=== PATIENT | female | born 1965 | race Caucasian/White ===

== ENCOUNTER → 2020-08-24 07:26 | Outpatient (CLI) | payer BC, SELFPAY ==
--- NOTE | ~2020-08-24 | MM_ITS ---
EXAMINATION: MM screening yoli BI w gena HISTORY: Screening TECHNIQUE: Craniocaudal and mediolateral oblique 3-D tomosynthesis images were obtained and synthetic 2-D images were generated. CAD analysis was submitted and interpreted. COMPARISON: Comparison to multiple prior studies sequentially, with oldest reviewed study dated 11/2014. BREAST PARENCHYMAL COMPOSITION: There are scattered areas of fibroglandular density. FINDINGS: There is no evidence of suspicious mass, calcification, or architectural distortion to sugg est malignancy in either breast. There has been no suspicious interval change. IMPRESSION: 1. No mammographic evidence of malignancy. 2. Recommend routine screening mammography in one year. BI-RADS Category 1: Negative Reviewed, dictated and finalized at location A.
== END ==
PROVIDERS: Visit Provider Obstetrics & Gynecology
DX: Z12.31 Encounter for screening mammogram for malignant neoplasm of breast (principal)
CPT/HCPCS: 77063; 77067

== ENCOUNTER → 2021-08-26 17:38 | Outpatient (CLI) | payer OTHER, SELFPAY ==
--- NOTE | ~2021-08-26 | DEXA_ITS ---
Bone Density Report Name: Jody Rodriguez Age: 55 Sex: Female Ethnicity: White Date of : 1965 Indication: postmenopausal; screening for osteoporosis; prior fracture; hysterectomy; Referring Provider: HARLEY FELIZ Study: Bone densitometry was performed. Exam Date: August 26, 2021 Accession number: [id number] Bone Density: Region BMD T-score Z-score Classification AP Spine (L1-L4) 1.063 0.1 1.4 Normal Femoral Neck (Left) 0.864 0.1 1.3 Normal Total Hip (Left) 1.129 1.5 2.4 Normal Femoral Neck (Right) 0.819 -0.3 0.9 Normal Total Hip (Right) 1.051 0.9 1.7 Normal Total Hip Mean 1.090 1.2 2.1 Normal World Health Organization criteria for BMD impression classify patients as: Normal (T-score at or above -1.0), Osteopenia (T-score between -1.0 and -2.5), or Osteoporosis (T-score at or below -2.5). 10-year Fracture Risk: FRAX not reported because: All T-scores for Spine Total, Hip Total, Femoral Neck at or above -1.0 Previous Exams: Region Exam Age BMD T-score BMD Change BMD Change Date g/cm2 vs Baseline vs Previous AP Spine(L1-L4) 08/26/2021 55 1.063 0.1 0.122 0.062* 06/03/2016 50 1.000 -0.4 0.060 0.060 05/11/2011 45 0.940 -1.0 Total Hip(Left) 08/26/2021 55 1.129 1.5 0.081 0.029* 06/03/2016 50 1.101 1.3 0.053 0.053 05/11/2011 45 1.048 0.9 Total Hip(Right) 08/26/2021 55 1.051 0.9 0.136 0.059* 06/03/2016 50 0.991 0.4 0.076 0.076 05/11/2011 45 0.915 -0.2 *Denotes significance at 95% confidence level, LSC for AP Spine = 0.022 g/cm2, LSC for Total Hip = 0.027 g/cm2 Clinical Information Provided by Patient: Has had a low trauma fracture Has used the following medications: Vitamin D, MULT VIT Has the following medical conditions: Hysterectomy Patient maximum height was 59 Menopause Age: 35 No regular weight bearing exercise Drinks caffeinated beverages Onset of menses at age 9 Number of children 3 Impression: The patient has normal bone mass. The patient has risk factors, including: previous fracture. No significant bone loss was observed. Discussion: BONE DENSITY IS ABOVE THE MINIMUM DESIRABLE LEVEL AT ALL SKELETAL SITES TESTED. This patient?s bone mineral density is above the minimum desirable level (T-score -1.0 or better) at all sites measured. The patient should follow a healt
--- NOTE | ~2021-08-26 | MM_ITS ---
EXAMINATION: MM screening yoli BI w gena HISTORY: Screening TECHNIQUE: Craniocaudal and mediolateral oblique 3-D tomosynthesis images were obtained and synthetic 2-D images were generated. CAD analysis was submitted and interpreted. COMPARISON: Comparison to multiple prior studies sequentially, with oldest reviewed study dated 06/03. BREAST PARENCHYMAL COMPOSITION: There are scattered areas of fibroglandular density. FINDINGS: There is no evidence of suspicious mass, calcification, or architectural distortion to sugg est malignancy in either breast. There has been no suspicious interval change. IMPRESSION: 1. No mammographic evidence of malignancy. 2. Recommend routine screening mammography in one year. BI-RADS Category 1: Negative Reviewed, dictated and finalized at location A.
== END ==
PROVIDERS: Visit Provider Obstetrics & Gynecology
DX: Z12.31 Encounter for screening mammogram for malignant neoplasm of breast (principal); M85.88 Other specified disorders of bone density and structure, other site
CPT/HCPCS: 77063; 77067; 77080

== ENCOUNTER 2021-11-01 00:28 | Day surgery (SDC) | payer OTHER, SELFPAY ==
[2021-10-22 10:28] VITALS: BMI 54.3
--- NOTE | 2021-10-29 18:50 | WPDANESEPPF ---
Anes - Initial Pre Proc Eval Procedure: Operation Date: 11/01/21 08:00 Proposed Procedures p Screening Colonoscopy - Eliceo Charlton MD Date/Time: 10/29/21 18:50 Surgeon: Eliceo Charlton MD Pre Op Diagnosis: hx of colon polyps Patient Data Age: 56 Gender: F Height: 1.5 m Weight: 122 kg Allergies Allergy/AdvReac Type Severity Reaction Status Date / Time No Known Allergies Allergy Verified 11/01/21 06:42 Home Medications Medication Instructions Recorded Confirmed Type ascorbate calcium (vitamin C) 500 mg PO DAILY 10/22/21 11/01/21 History aspirin [Adult Low Dose Aspirin] 81 mg PO DAILY 10/22/21 11/01/21 History ergocalciferol (vitamin D2) 1,250 mcg PO WEEKLY 10/22/21 11/01/21 History multivit with min-folic acid 1 tablet PO DAILY 10/22/21 11/01/21 History [Adult One Daily Multivitamin] spironolactone 50 mg PO DAILY 10/22/21 11/01/21 History iprbwry-frzr-ueglc-oreg-capryl 1 cap PO DAILY 10/22/21 11/01/21 History Patient hx anesthesia problems: none Family hx anesthesia problems: none Results Review: All pre-operative results and documents have been reviewed as part of the pre-operative evaluation. [facility] Past Medical History Medical History (Updated 10/29/21 @ 18:51 by Jnu Tucker DO) Hypertension Surgical History Surgical History (Updated 10/29/21 @ 18:51 by Jun Tucker DO) History of cholecystectomy History of hysterectomy Social History Social History Smoking status: Never smoker Living arrangements: with family Spiritual care concerns: No Anes - Eval Final PreProcedure Day of Procedure 10/29/21 18:50 Patient weight: super morbidly obese Heart: regular rate and rhythm Lungs: clear to auscultation and normal air movement Airway: Mallampati scale class II Neurological: alert and oriented Last oral intake: >/= 8 hours ASA classification: III Emergent: no Anesthetic plan: proceed Anesthesia type and monitoring: general GIVS and standard monitoring Results Review: All pre-operative results and documents have been reviewed as part of the pre-operative evaluation. Informed Consent: The patient's anesthetic plan and its attendant risks and benefits were discussed with the patient/family/POA. Questions were solicited and answers provided to the satisfaction of the patient/family/POA.
[2021-11-01 06:43] VITALS: BP 131/89; PULSE 91; RESP 18; TEMP 35.9; O2SAT 98; BMI 52.0
[2021-11-01] MEDS: LACTATED RINGERS 1,000 ML 150 ML IV CONT (06:55)
--- NOTE | 2021-11-01 07:27 | WPDGICN ---
Assessment and Plan Assessment and plan (1) History of colon polyps: Code(s): Z86.010 - Personal history of colonic polyps Status: Acute Assessment and Plan: Patient has a history of colon polyps removed in 2016. Plan is for surveillance colonoscopy now and at intervals in the future. GI Consult Note Consult date/time: 11/01/21 07:27 HPI: Jody Rodriguez is a 56 year old female Presents for screening colonoscopy. Patient's current weight appetite bowel movements are normal. She denies abdominal pain. She has had no bleeding. Family history noncontributory. Patient did have a previous colonoscopy 2016 at that time she had a benign adenomatous colon polyp removed from the colon. She reports that her current bowel habits are normal. She denies any bleeding. She does have a history of surgery on her right elbow several years ago. This is healed up well. Review of Systems Review of Systems: All systems reviewed & are unremarkable except as noted in HPI and below PMFSH Past Medical History Medical History (Updated 11/01/21 @ 07:28 by Eliceo Charlton MD) Hypertension Surgical History Surgical History (Updated 10/29/21 @ 18:51 by Jun Tucker DO) History of cholecystectomy History of hysterectomy Social History Social History Smoking status: Never smoker Living arrangements: with family Spiritual care concerns: No Meds Home Medications and Allergies Home Medications Medication Instructions Recorded Confirmed Type ascorbate calcium (vitamin C) 500 mg PO DAILY 10/22/21 11/01/21 History aspirin [Adult Low Dose Aspirin] 81 mg PO DAILY 10/22/21 11/01/21 History ergocalciferol (vitamin D2) 1,250 mcg PO WEEKLY 10/22/21 11/01/21 History multivit with min-folic acid 1 tablet PO DAILY 10/22/21 11/01/21 History [Adult One Daily Multivitamin] spironolactone 50 mg PO DAILY 10/22/21 11/01/21 History ldoafiz-oyqw-guldi-oreg-capryl 1 cap PO DAILY 10/22/21 11/01/21 History Allergies Allergy/AdvReac Type Severity Reaction Status Date / Time No Known Allergies Allergy Verified 11/01/21 06:42 Vital Signs Vital Signs - 24 hr 11/01/21 06:43 Temperature 96.6 F L Pulse Rate 91 Respiratory Rate 18 Blood Pressure 131/89 Pulse Oximetry 98 Exam Narrative: Physical exam reveals patient be alert. Vital signs stable. HEENT exam is unremarkable. Patient is anicteric. Lungs are clear to auscultation and percussion. Heart is without murmur or extra sounds. Abdominal exam bowel sounds are present soft nontender with no hepatosplenomegaly. Digital external rectal exam is normal.
[2021-11-01 08:04] VITALS: BP 110/87; PULSE 82; RESP 17; O2SAT 81
[2021-11-01 08:14] VITALS: BP 102/59; PULSE 89; RESP 18; O2SAT 85
[2021-11-01 08:24] VITALS: BP 119/81; PULSE 91; RESP 18; O2SAT 78
== END 2021-11-01 08:40 | disposition home or self-care (01) ==
PROVIDERS: PCP Nurse Practitioner; Visit Provider Internal Medicine Gastroenterology
PROC: 0DJD8ZZ Inspection of Lower Intestinal Tract, Via Natural or Artificial Opening Endoscopic (ICD-10-PCS; CPT 45378; principal; 2021-11-01 08:00)
DX: Z12.11 Encounter for screening for malignant neoplasm of colon (principal); D12.0 Benign neoplasm of cecum; K64.8 Other hemorrhoids; I10 Essential (primary) hypertension; Z90.49 Acquired absence of other specified parts of digestive tract
CPT/HCPCS: 45385; 88305; J2704; J7120

== ENCOUNTER 2022-04-12 08:04 | Outpatient (CLI) | payer OTHER, SELFPAY ==
--- NOTE | ~2022-04-12 | US_ITS ---
US abdomen complete EXAMINATION: US Abdomen Complete INDICATION: Elevated liver function tests PROCEDURE: Realtime High Resolution abdomen ultrasound. COMPARISON: Ultrasound dated 06/11/2015 FINDINGS: Gallbladder surgically absent. Common bile duct measures 10 mm. Liver echotexture is increased, consistent with fatty infiltration.. Pancreas within normal limits. Pancreatic tail is obscured by bowel gas. Spleen is unremarkeable. Renal echotexture is within norm al limits bilaterally without hydronephrosis, contour deforming mass or renal stone. Right kidney juan sures 10.4 cm. Left kidney measures 11.5 cm. There is a left renal cyst measuring 1.6 cm. Visualized aspects of the aorta and IVC are within normal limits. Portal vein is patent. No sonograph ic Brandon's sign indicated by the technologist. IMPRESSION: 1: Hepatic steatosis. Reviewed, dictated and finalized at location A. IMPRESSION: 1: Hepatic steatosis.
== END 2022-04-12 08:05 | disposition home or self-care (01) ==
LOC: ANHIMG 08:05
PROVIDERS: PCP Nurse Practitioner; Visit Provider Internal Medicine
DX: E83.110 Hereditary hemochromatosis (principal); R79.89 Other specified abnormal findings of blood chemistry; K76.0 Fatty (change of) liver, not elsewhere classified
CPT/HCPCS: 76700

== ENCOUNTER → 2022-09-12 10:09 | Outpatient (CLI) | payer OTHER, SELFPAY ==
--- NOTE | ~2022-09-12 | MM_ITS ---
EXAMINATION: MM screening yoli BI w gena HISTORY: Screening TECHNIQUE: Craniocaudal and mediolateral oblique 3-D tomosynthesis images were obtained and synthetic 2-D images were generated. CAD analysis was submitted and interpreted. COMPARISON: Comparison to multiple prior studies sequentially, with oldest reviewed study dated 06/05. BREAST PARENCHYMAL COMPOSITION: There are scattered areas of fibroglandular density. FINDINGS: There is no evidence of suspicious mass, calcification, or architectural distortion to sugg est malignancy in either breast. There has been no suspicious interval change. IMPRESSION: 1. No mammographic evidence of malignancy. 2. Recommend routine screening mammography in one year. BI-RADS Category 1: Negative Reviewed, dictated and finalized at location A.
== END ==
PROVIDERS: PCP Nurse Practitioner; Visit Provider Advanced Practice Midwife
DX: Z12.31 Encounter for screening mammogram for malignant neoplasm of breast (principal)
CPT/HCPCS: 77063; 77067

== ENCOUNTER → 2023-09-22 14:44 | Outpatient (CLI) | payer OTHER, SELFPAY ==
--- NOTE | ~2023-09-22 | MM_ITS ---
EXAMINATION: MM screening yoli BI w gena HISTORY: Screening TECHNIQUE: Craniocaudal and mediolateral oblique 3-D tomosynthesis images were obtained and synthetic 2-D images were generated. CAD analysis was submitted and interpreted. COMPARISON: Comparison to multiple prior studies sequentially, with oldest reviewed study dated 12/2017. BREAST PARENCHYMAL COMPOSITION: There are scattered areas of fibroglandular density. FINDINGS: There is no evidence of suspicious mass, calcification, or architectural distortion to sugg est malignancy in either breast. There has been no suspicious interval change. IMPRESSION: 1. No mammographic evidence of malignancy. 2. Recommend routine screening mammography in one year. BI-RADS Category 1: Negative Reviewed, dictated and finalized at location A. 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
== END ==
PROVIDERS: PCP Nurse Practitioner; Visit Provider Advanced Practice Midwife
DX: Z12.31 Encounter for screening mammogram for malignant neoplasm of breast (principal)
CPT/HCPCS: 77063; 77067

== ENCOUNTER 2024-04-22 10:46 | Emergency (ER) | payer OTHER, SELFPAY ==
--- NOTE | ~2024-04-22 | CT_ITS ---
EXAMINATION: CT abdomen pelvis w con DATE: 04/22/2024 13:01 INDICATION: Right lower quadrant abdominal pain TECHNIQUE: Computed tomography (CT) of the abdomen and pelvis was performed with 100 mL Omnipaque-350 intravenous contrast. Automated exposure control and iterative reconstruction technique were employe d. The dose-length product was 1371.54 mGy-cm. COMPARISON: 12/02/2014 FINDINGS: Minimal dependent atelectasis in bilateral lower lobes. Calcified right hilar lymph nodes along with a few splenic calcifications consistent with old granulomatous disease. Heart size is normal. No tye cardial or pleural effusion. Diffuse hepatic steatosis. Cholecystectomy clips the gallbladder fossa. Several smaller low-attenuation likely cyst or hemangioma in the posterior spleen. Pancreas and bilat eral adrenal glands are normal. 2 mm stone at a lower pole calyx of the right kidney and at least 5 s tones in the left kidney measuring up to 3 mm in the left kidney. There is a 3-4 mm calcification ozzy ng the midline dependent wall of the bladder which could represent either a stone at the ureterovesic ular junction were potentially recently passed stone. There is mild right hydronephrosis. 1.9 cm low- attenuation exophytic cyst at the lower pole the left kidney with dependent rim calcific a vazquez versu s layering milk of calcium. There is an additional 2.2 cm indeterminate soft tissue density lesion at the lower pole the left kidney which could represent either a complicated proteinaceous/hemorrhagic cyst or solid renal cell carcinoma. Bowels including the appendix are normal. The uterus is not ident ified and has likely been surgically resected. No free intraperitoneal gas or fluid. No pathologicall y enlarged abdominal or pelvic lymphadenopathy. Mild thoracic and lumbar spondylosis. IMPRESSION: 1. Bilateral nephrolithiasis with 3-4 mm stone near the midline of the posterior bladder which could represent either a right ureterovesicular junction stone or recently passed stone with mild right hyd ronephrosis. 2. Indeterminate 2.2 cm soft tissue density lesion at the lower pole the left kidney most likely prot einaceous/hemorrhagic cyst although differential includes solid renal cell carcinoma and would recomm end further evaluation with follow-up pre and postcontrast MRI or CT. Reviewed, dictated and finalized at location A. IMPRESSION: 1. Bilateral nephrolithiasis with 3-4 mm stone near the midline of the posterio r bladder which could represent either a right ureterovesicular junction stone or recently passed stone with mild right hydronephrosis. 2. Indeterminate 2.2 cm soft tissue density lesion at the lower pole the left k idney most likely proteinaceous/hemorrhagic cyst although differential includes solid renal cell carcinoma and would recommend further evaluation with follow- up pre and postcontrast MRI or CT.
[2024-04-22 10:47] VITALS: BP 158/94; PULSE 85; RESP 18; TEMP 36.4; O2SAT 95
--- NOTE | 2024-04-22 11:12 | ED.ABDPAIN ---
HPI - Abdominal Pain General Chief Complaint: Abdominal Pain Stated Complaint: r abd pain Time Seen by Provider: 04/22/24 10:55 Source: patient Mode of arrival: ambulatory Limitations: no limitations History of Present Illness HPI narrative: Jody is a 58-year-old female patient presenting to the emergency room today with complaints of right lower quadrant pain that started approximately 1 hour prior to arrival. She reports that the pain is sharp and constant. States that she feels as though she has to urinate frequently and is having burning at the beginning of the urination stream however the symptoms improved home during urination. Positive for nausea but no vomiting. Denies any diarrhea or blood in her stool. Denies any fever. Last ate. History of kidney stones in the past. Related Data Home Medications Medication Instructions Recorded Confirmed ascorbate calcium (vitamin C) 500 500 mg PO DAILY 10/22/21 11/01/21 mg capsule aspirin 81 mg tablet 81 mg PO DAILY 10/22/21 11/01/21 ergocalciferol (vitamin D2) 1,250 1,250 mcg PO WEEKLY 10/22/21 11/01/21 mcg (50,000 unit) capsule multivitamin with minerals-folic 1 tablet PO DAILY 10/22/21 11/01/21 acid 0.4 mg tablet spironolactone 50 mg tablet 50 mg PO DAILY 10/22/21 11/01/21 turmeric 100 mg-rory 150 1 cap PO DAILY 10/22/21 11/01/21 mg-olive 50 mg-oreg 150 mg-capryl capsule Allergies Allergy/AdvReac Type Severity Reaction Status Date / Time No Known Allergies Allergy Verified 11/01/21 06:42 Review of Systems Review of Systems: Pertinent positives per HPI. Patient denies any fever, chills, rash, headache, visual changes, dizziness, cough, runny nose, sore throat, shortness of breath, chest pain, palpitations, nausea, vomiting, diarrhea, constipation. PMF Past Medical History Medical History Hypertension Surgical History Surgical History History of cholecystectomy History of hysterectomy Social History Social History Smoking status: Never smoker Living arrangements: with family Spiritual care concerns: No Comments At the time of my signature, I reviewed and agree with the nursing past medical, surgical, social, and family history. There is no relevant family history pertinent to the patient complaint. Exam Narrative: General: Well-developed, morbidly obese, in no apparent distress. Head: Normocephalic, atraumatic. Cardio: Regular rate and rhythm, s1 and s2 normal, no murmur appreciated. Resp: Clear to auscultation bilaterally, no rhonchi, rales, wheezing or rubs. Abdomen: Soft, pliable, bowel sounds present in all quadrants, right lower quadrant tender to palpation, no organomegly, no CVAT tenderness. Course Course Emergency Course: Portions of this record may have been created with voice recognition software. Vital Signs Vital signs: Vital Signs Temperature 36.4 C 04/22/24 10:47 Pulse Rate 85 04/22/24 10:47 Respiratory Rate 18 04/22/24 10:47 Blood Pressure 158/94 H 04/22/24 10:47 Pulse Oximetry 95 04/22/24 10:47 Oxygen Delivery Room Air 04/22/24 10:47 Temperature 36.4 C 04/22/24 10:47 Pulse Rate 85 04/22/24 10:47 Respiratory Rate 18 04/22/24 10:47 Blood Pressure 158/94 H 04/22/24 10:47 Pulse Oximetry 95 04/22/24 10:47 Oxygen Delivery Room Air 04/22/24 10:47 Vital signs reviewed MDM - Abdominal Pain MDM Narrative Medical decision making narrative: At the time of visit patient is resting comfortably on the exam table. Patient appears to be nontoxic. Labs: CBC shows white blood cell count 4.9, H&H of 14.4 and 41.1, platelet counts 145, chemistry shows sodium 140, potassium of 3.8, chloride 110, BUN of 23, creatinine 0.9, GFR is greater than 60, glucose is 116, AST 32 ALT is 38, lipas
[2024-04-22 11:31] LABS: Basophils Percent Auto 0.6 % (0.2-1.2); Eosinophils Absolute Auto 0.1 K/mm3 (0-0.3); Eosinophils Percent Auto 2.2 % (0-4.4); Hematocrit 41.1 % (37.0-47.0); Hemoglobin 14.4 g/dL (12.0-15.0); Immature Granulocyte Absolute 0.01 K/mm3 (0.00-0.031); Immature Granulocyte Percent A 0.2 % (0-0.5); Lymphocytes Absolute Auto 1.23 K/mm3 (0.9-3.2); Lymphocytes Percent Auto 24.9 % (18.3-44.2); Mean Corpuscular Hemoglobin 34.5 pg (26-34); Mean Corpuscular Volume 98.6 fl (80-100); Mean Platelet Volume 10.3 fl (7.4-10.4); Monocytes Absolute Auto 0.4 K/mm3 (0.1-0.6); Monocytes Percent Auto 8.1 % (2.6-8.5); Neutrophils Absolute Auto 3.2 K/mm3 (1.3-6.7); Platelet Count Result 145 k/mm3 (150-375); Red Blood Count 4.17 M/mm3 (4.2-5.4); Red Cell Distribution Width 12.9 % (11.5-14.5); White Blood Count 4.9 K/mm3 (4.5-10.0)
[2024-04-22 11:36] LABS: Appearance Urine Cloudy (Clear); Bacteria Urine Rare /hpf; Bilirubin Urine Negative (Negative); Blood Urine 1+ (Negative); Color Urine Yellow (Yellow); Glucose Urine UA Negative (Negative); Ketones Urine Negative (Negative); Leukocyte Esterase Ur 1+ LEU/UL (Negative); Nitrate Urine Negative (Negative); Non Pathogenic Casts 0-2; Protein Urine 1+ mg/dL (Negative); RBC Urine 21-50 /hpf (0-2); Specific Grav Ur 1.024 (1.001-1.035); Squamous Epithelial Cell Urine Occasional /hpf (Few); WBC Urine 51-100 /hpf (0-3); pH Urine 6.5 (5.0-9.0)
[2024-04-22 11:37] LABS: Add Urine Microscopic? YES
[2024-04-22 11:43] LABS: Alanine Aminotransferase 38 U/L (6-35); Albumin Level 4.3 g/dL (3.5-5.1); Alkaline Phosphatase 87 U/L (38-126); Anion Gap 6 mmol/L (4-12); Aspartate Amino Transferase 32 U/L (14-36); Blood Urea Nitrogen 23 mg/dL (7-17); Calcium 9.1 mg/dL (8.4-10.2); Carbon Dioxide 24 mmol/L (22-30); Chloride 110 mmol/L (98-107); Estimated Glomerular Filt Rate > 60; Glucose 116 mg/dL (65-110); Lipase 211 U/L (23-300); Potassium 3.8 mmol/L (3.4-5.0); Sodium 140 mmol/L (137-145)
[2024-04-22 14:13] VITALS: BP 142/90; PULSE 86; RESP 18; O2SAT 96
== END 2024-04-22 14:14 | disposition home or self-care (01) ==
PROVIDERS: Emergency Provider Nurse Practitioner Family; PCP Nurse Practitioner
DX: N13.2 Hydronephrosis with renal and ureteral calculous obstruction (principal); N39.0 Urinary tract infection, site not specified; N28.89 Other specified disorders of kidney and ureter; I10 Essential (primary) hypertension; Z90.49 Acquired absence of other specified parts of digestive tract; Z90.710 Acquired absence of both cervix and uterus; Z79.82 Long term (current) use of aspirin
CPT/HCPCS: 36415; 74177; 80053; 81001; 83690; 85025; 87077; 87086; 87088; 87186; 99284; Q9967

== ENCOUNTER 2024-05-02 13:35 | Outpatient (CLI) | payer OTHER, SELFPAY ==
--- NOTE | ~2024-05-02 | MR_ITS ---
EXAMINATION: MR abdomen wo/w con DATE: 05/02/2024 14:36 INDICATION: Left kidney mass. TECHNIQUE: Magnetic resonance imaging (MRI) of the abdomen was performed without and with 20 mL Multi Cameron intravenous contrast. COMPARISON: CT abdomen and pelvis 04/22/2024 FINDINGS: There is diffuse hepatic steatosis. There is a 5 mm cyst in the liver. There are cysts in the spleen measuring up to 5 mm. There are changes of cholecystectomy. The pancreas and adrenal glands are donovan l. There are hemorrhagic cysts in left kidney measuring up to 19 mm. There are simple cysts in the ki dneys measuring up to 7 mm on the left. There are no dilated loops of bowel. There are no pathologica lly enlarged lymph nodes. There is no free intraperitoneal fluid. IMPRESSION: 1. Benign cysts in the kidneys. Reviewed, dictated and finalized at location A.
== END 2024-05-02 13:36 | disposition home or self-care (01) ==
PROVIDERS: PCP Nurse Practitioner; Visit Provider Nurse Practitioner
DX: N28.1 Cyst of kidney, acquired (principal)
CPT/HCPCS: 74183; A9577

== ENCOUNTER 2024-11-30 10:03 | Outpatient (CLI) | payer OTHER, SELFPAY ==
--- NOTE | ~2024-11-30 | MM_ITS ---
EXAMINATION: MM screening yoli BI w gena HISTORY: Screening TECHNIQUE: Craniocaudal and mediolateral oblique 3-D tomosynthesis images were obtained and synthetic 2-D images were generated. CAD analysis was submitted and interpreted. COMPARISON: Comparison to multiple prior studies sequentially, with oldest reviewed study dated 12/2017. BREAST PARENCHYMAL COMPOSITION: Not dense: There are scattered areas of fibroglandular density. FINDINGS: There is no evidence of suspicious mass, calcification, or architectural distortion to sugg est malignancy in either breast. There has been no suspicious interval change. IMPRESSION: 1. No mammographic evidence of malignancy. 2. Recommend routine screening mammography in one year. BI-RADS Category 1: Negative Reviewed, dictated and finalized at location A. 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
== END 2024-11-30 10:04 | disposition home or self-care (01) ==
PROVIDERS: PCP Nurse Practitioner; Visit Provider Obstetrics & Gynecology Gynecology
DX: Z12.31 Encounter for screening mammogram for malignant neoplasm of breast (principal)
CPT/HCPCS: 77063; 77067

== ENCOUNTER 2025-03-29 14:01 | Emergency (ER) | payer OTHER, SELFPAY ==
--- NOTE | ~2025-03-29 | XR_ITS ---
XR knee LT min 4V Ordering provider: Angeles Rowan NP History: . pain to medial aspect of left knee one week/no known injury . Comparison: None. FINDINGS: BONES: No acute fracture or dislocation. JOINT SPACES: Normal. SOFT TISSUES: Subcutaneous varicosities are seen. IMPRESSION: No acute osseous abnormality left knee. Reviewed, dictated and finalized at location A.
[2025-03-29 14:23] VITALS: BP 139/80; PULSE 71; RESP 20; TEMP 36.2; O2SAT 100
--- NOTE | 2025-03-29 14:41 | ED.EXTPRO ---
HPI - Extremity Problem General Chief complaint: Extremity Problem,Nontraumatic <Angeles Rowan NP - Last Filed: 03/29/25 17:30> Stated complaint: Right Knee Pain <Angeles Rowan NP - Last Filed: 03/29/25 17:30> Time Seen by Provider: 03/29/25 14:41 <Angeles Rowan NP - Last Filed: 03/29/25 17:30> Source: patient, family, RN notes reviewed and old records reviewed <Angeles Rowan NP - Last Filed: 03/29/25 17:30> Mode of arrival: ambulatory <Angeles Rowan NP - Last Filed: 03/29/25 17:30> Limitations: no limitations <Angeles Rowan NP - Last Filed: 03/29/25 17:30> History of Present Illness HPI Narrative: 59 [facility] complaints of pain to the right knee for one week duration with no recent fall or injury. Patient reports that she did fall 2 months ago when she was trying to put on cleats and fell onto concrete but states she mainly hurt her back doesn't think she hurt her knee. then. Patient reports that her knee feels tight and swollen posteriorly, able to bend knee without pain, pain to knee with ambulation. 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 <Angeles Rowan NP - Last Filed: 03/29/25 17:30> MD Complaint: other (right knee pain) <MALIKA Zamora Last Filed: 03/29/25 17:30> Onset (ago): week(s) (1) <Angeles Rowan NP - Last Filed: 03/29/25 17:30> Location: knee <Angeles Rowan NP - Last Filed: 03/29/25 17:30> Severity scale (1-10): 5 <MALIKA Zamora Last Filed: 03/29/25 17:30> Quality: aching and other (tight) <Angeles Rowan NP - Last Filed: 03/29/25 17:30> Exacerbating factors: weight bearing <Angeles Rowan NP - Last Filed: 03/29/25 17:30> Related Data Home medications: Home Medications Medication Instructions Recorded Confirmed Last Taken Type ascorbate calcium (vitamin C) 500 500 mg PO DAILY 10/22/21 11/01/21 10/31/21 History mg capsule aspirin 81 mg tablet 81 mg PO DAILY 10/22/21 11/01/21 10/31/21 History ergocalciferol (vitamin D2) 1,250 1,250 mcg PO WEEKLY 10/22/21 11/01/21 10/31/21 History mcg (50,000 unit) capsule multivitamin with minerals-folic 1 tablet PO DAILY 10/22/21 11/01/21 10/31/21 History acid 0.4 mg tablet spironolactone 50 mg tablet 50 mg PO DAILY 10/22/21 11/01/21 10/31/21 History turmeric 100 mg-rory 150 1 cap PO DAILY 10/22/21 11/01/21 10/31/21 History mg-olive 50 mg-oreg 150 mg-capryl capsule <Angeles Rowan NP - Last Filed: 03/29/25 17:30> Allergies/Adverse reactions: Allergies Allergy/AdvReac Type Severity Reaction Status Date / Time No Known Allergies Allergy Verified 03/29/25 14:21 <Angeles Rowan NP - Last Filed: 03/29/25 17:30> Review of Systems Review of Systems: CONSTITUTIONAL: Denies fever, chills, or sweats. EYES: Denies visual changes, redness, or discharge. ENT: Denies rhinorrhea, congestion, sore throat, or otalgia. CARDIOVASCULAR: Denies chest pain, palpitations, or edema. RESPIRATORY: Denies cough or dyspnea. GASTROINTESTINAL: Denies abdominal pain, nausea, vomiting, or diarrhea. GENITOURINARY: Denies dysuria or hematuria. SKIN: Denies rash or itching. MUSCULOSKELETAL: Denies back pain,positive for right medial knee pain, or myalgia. NEUROLOGIC: Denies headache, numbness, or weakness. PSYCHIATRIC: Denies anxiety or depression. <Angeles Rowan NP - Last Filed: 03/29/25 17:30> All systems reviewed & are unremarkable except as noted in HPI and below <Angeles Rowan NP - Last Filed: 03/29/25 17:30> PMFSH Past Medical History Medical History: Medical History Hypertension <Angeles Rowan NP - Last Filed: 03/29/25 17:30> Surgical History Surgical History: Surgical History History of hysterectomy History of cholecystectomy <Angeles Rowan NP - Last Filed: 03/29/25 17:30> Social History Social History: Social History Smoking status: Never smoker Living arrangements: with family Spiritual care concerns: No <Angeles Rowan NP - Last Filed: 03/29/25 17:30> Comments At time of signature, agree with nursing past medical, surgical, social and family history. There is no relevant family history pertinent to the presenting complaint <Angeles Rowan NP - Last Filed: 03/29/25 17:30> Exam Narrative: GENERAL: Well-appearing, well-nourished,morbidly obese and in no acute distress. HEAD: Normocephalic, atraumatic. EYES: PERRLA and EOMI. ENT: Nares clear, no rhinorrhea or epistaxis. Mucous membranes moist. NECK: Supple. no lymphadenopathy CHEST: Clear to auscultation. No respiratory distress.SAO2 100% on room air HEART: Regular rate and rhythm. No murmur heard. Normal peripheral pulses. ABDOMEN: Soft, nontender, nondistended, normal active bowel sounds. EXTREMITIES: Normal range of motion. edema to posterior right knee with tightness of right knee with some medial knee pain, increases with ambulation, able to bend on own power, pedal pulse palpable, sensation intact. SKIN: Warm, dry, no rash. NEURO: No focal deficits. Alert and oriented x3. <Angeles Rowan NP - Last Filed: 03/29/25 17:30> Course Course Emergency Course: Patient is aware of diagnosis, understands and agrees to treatment plan. Anticipatory guidance given. Patient agrees to follow-up as directed and is aware of reasons to seek care at the emergency department. Portions of this record may have been created with voice recognition software <Angeles Rowan NP - Last Filed: 03/29/25 17:30> Level of Care: Express Care Visit <Angeles Rowan NP - Last Filed: 03/29/25 17:30> Reevaluation(s) Reevaluation #1: Re-evaluated patient prior to discharge. Agree with prior assessment from previous provider. Notified her that her x-ray was negative for any acute fractures however discussed with her the x-rays do not show ligaments or tendons if she continues to have issues with pain she needs follow-up with her primary doctor about possibly referral for physical therapy or an MRI. Recommended that patient consistently take Tylenol ibuprofen for the pain and would recommend icing the area to help with inflammation as well as getting a brace to help support the joint area. Patient verbalized understanding denies any other questions or concerns at this time. <ARASH Martin - Last Filed: 03/29/25 16:26> Date: 03/29/25 <ARASH Martin - Last Filed: 03/29/25 16:26> Time: 16: <ARASH Martin - Last Filed: 03/29/25 16:26> Vital Signs Vital signs: Vital Signs Temperature 36.2 C L 03/29/25 14:23 Pulse Rate 71 03/29/25 14:23 Respiratory Rate 20 03/29/25 14:23 Blood Pressure 139/80 03/29/25 14:23 Pulse Oximetry 100 03/29/25 14:23 Oxygen Delivery Room Air 03/29/25 14:23 Temperature 36.2 C L 03/29/25 14:23 Pulse Rate 71 03/29/25 14:23 Respiratory Rate 20 03/29/25 14:23 Blood Pressure 139/80 03/29/25 14:23 Pulse Oximetry 100 03/29/25 14:23 Oxygen Delivery Room Air 03/29/25 14:23 Reviewed <Angeles Rowan NP - Last Filed: 03/29/25 17:30> Vital Signs Temperature 36.2 C L 03/29/25 14:23 Pulse Rate 71 03/29/25 14:23 Respiratory Rate 20 03/29/25 14:23 Blood Pressure 139/80 03/29/25 14:23 Pulse Oximetry 100 03/29/25 14:23 Oxygen Delivery Room Air 03/29/25 14:23 Temperature 36.2 C L 03/29/25 14:23 Pulse Rate 71 03/29/25 14:23 Respiratory Rate 20 03/29/25 14:23 Blood Pressure 139/80 03/29/25 14:23 Pulse Oximetry 100 03/29/25 14:23 Oxygen Delivery Room Air 03/29/25 14:23 <ARASH Martin - Last Filed: 03/29/25 16:26> MDM - Extremity (Nontraumatic) MDM Narrative Medical decision making narrative: no x-ray available in [place] today. Patient went to [facility] for x-ray accompanied by spouse. Patient discharged home from [facility] with instructions.. <Angeles Rowan NP - Last Filed: 03/29/25 17:30> Differential Diagnosis Differential diagnosis: Likely lower extremity edema and other (right knee pain and swelling. right medial knee pain) <Angeles Rowan NP - Last Filed: 03/29/25 17:30> Medical Records Attestation: I reviewed the patient's medical records. 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 pain to medial aspect of left knee one week/no known injury . Comparison: None. FINDINGS: BONES: No acute fracture or dislocation. JOINT SPACES: Normal. SOFT TISSUES: Subcutaneous varicosities are seen. IMPRESSION: No acute osseous abnormality left knee. Reviewed, dictated and finalized at location A. Please be advised this is a medical document. It is intended for [id number] communication. It is written in medical language and may contain unfamiliar abbreviations or verbiage. Medical documents are intended to carry relevant information, facts as evident, and the clinical opinion of the practitioner at the time of the encounter. This report may have been done utilizing a voice recognition system. Attempts have been made to correct errors. However, there may be uncorrected grammatical, spelling, and recognition errors present. The file time of this note does not necessarily represent the time of service. Dictated By: Ranulfo Huntley MD 03/29/25 1537 Signed By: <Electronically signed by Ranulfo Huntley MD in OV> <Angeles Rowan NP - Last Filed: 03/29/25 17:30> Critical Care Time Critical Care Time Critical Care Time: No <Angeles Rowan NP - Last Filed: 03/29/25 17:30> Discharge Plan Discharge Clinical Impression: Right knee pain Qualifiers: Chronicity: acute Qualified Code(s): M25.561 - Pain in right knee <Angeles Rowan NP - Last Filed: 03/29/25 17:30> Patient Disposition: Home <Angeles Rowan NP - Last Filed: 03/29/25 17:30> Condition: Stable <Angeles Rowan NP - Last Filed: 03/29/25 17:30> Instructions: Knee Pain (ED) <Angeles Rowan NP - Last Filed: 03/29/25 17:30> Additional Instructions: Recommend neoprene sleeve for right knee for support can obtain at [email or web address] or [employer] Tylenol for lesser pain Ibuprofen regularly for the next 2-3 days for the inflammation recommend 600 mg 3 times daily with food for the next 2-3 days Follow-up with orthopedic surgeon if no improvement noted Follow-up with PCP if further problems or concerns Ice to the area 20-30 minutes 4-6 times a day Elevate above heart If your symptoms persist, change or worsen significantly before you can contact your personal physician then please, without delay, go to the emergency department for further evaluation. Follow-up with PCP in 7-10 days or sooner if needed Follow up with PCP soon in regards to your blood pressure which is elevated above threshold for referral. Blood pressure above 120/80 may indicate pre-hypertension. 139/80 <MALIKA Zamora Last Filed: 03/29/25 17:30> Patient Language: Greek <Angeles Rowan NP - Last Filed: 03/29/25 17:30> Prescriptions: No Action ergocalciferol (vitamin D2) 1,250 mcg (50,000 unit) capsule 1,250 mcg PO WEEKLY spironolactone 50 mg tablet 50 mg PO DAILY multivit with min-folic acid [Adult One Daily Multivitamin] 0.4 mg Tablet 1 tablet PO DAILY Adult Low Dose Aspirin 81 mg Tablet 81 mg PO DAILY ascorbate calcium (vitamin C) 500 mg Capsule 500 mg PO DAILY zgebervu-czrj-gkrjf-oreg-capry 100 mg-150 mg- 50 mg-150 mg Capsule 1 cap PO DAILY amoxicillin-pot clavulanate 875-125 mg tablet 1 tablet PO Q12H 7 Days Qty: 14 0RF <Angeles Rowan NP - Last Filed: 03/29/25 17:30> Follow-up/Referrals: [place],NAUN Mayer [Primary Care Provider] - <Angeles Rowan NP - Last Filed: 03/29/25 17:30> Time of Disposition: 16:20 <Angeles Rowan NP - Last Filed: 03/29/25 17:30> 16:20 <ARASH Martin - Last Filed: 03/29/25 16:26> Quality Jim Coma Scale Eyes: Open <Angeles Rowan NP - Last Filed: 03/29/25 17:30> Verbal: Oriented and Alert <Angeles Rowan NP - Last Filed: 03/29/25 17:30> Motor: Follows Commands <Angeles Rowan NP - Last Filed: 03/29/25 17:30> Jim Coma Total Score: 15 <Angeles Rowan NP - Last Filed: 03/29/25 17:30> 15 <ARASH Martin - Last Filed: 03/29/25 16:26>
--- NOTE | 2025-03-29 14:58 | PC.NURSE ---
Pt will transfer to [facility] for x-ray via [facility].
--- NOTE | 2025-03-29 15:13 | PC.NURSE ---
Report given to MARÍA Watson at [facility]
== END 2025-03-29 16:21 | disposition home or self-care (01) ==
PROVIDERS: Emergency Provider Registered Nurse; PCP Nurse Practitioner
DX: M25.561 Pain in right knee (principal); I10 Essential (primary) hypertension; Z79.82 Long term (current) use of aspirin
CPT/HCPCS: 73564; 99213; G0463

== ENCOUNTER 2025-04-10 14:26 | Outpatient (CLI) | payer OTHER, SELFPAY ==
--- NOTE | ~2025-04-10 | DEXA_ITS ---
Bone Density Report Name: JANNETTE MAYO Age: 59 Sex: Female Ethnicity: White Date of : 1965 Indication: postmenopausal; screening for osteoporosis; height loss; hysterectomy; Referring Provider: AKSHAT TOLBERT Study: Bone densitometry was performed. Exam Date: April 10, 2025 Accession number: [id number] Bone Density: Region BMD T-score Z-score Classification AP Spine(L1-L4) 0.957 -0.8 0.7 Normal Femoral Neck (Left) 0.763 -0.8 0.6 Normal Total Hip (Left) 1.079 1.1 2.1 Normal Femoral Neck (Right) 0.685 -1.5 -0.1 Osteopenia Total Hip (Right) 1.035 0.8 1.8 Normal Total Hip Mean 1.057 1.0 2.0 Normal World Health Organization criteria for BMD impression classify patients as: Normal (T-score at or above -1.0), Osteopenia (T-score between -1.0 and -2.5), or Osteoporosis (T-score at or below -2.5). 10-year Fracture Risk(1): Major Osteoporotic Fracture 6.3% Hip Fracture 0.4% Reported Risk Factors: [place] (), Neck BMD=0.685, BMI=55.6 (1) FRAX(R) Version 3.08. Fracture probability calculated for an untreated patient. Fracture probability may be lower if the patient has received treatment. Previous Exams: -- Region Exam Age BMD T-score BMD Change BMD Change Date g/cm2 vs Baseline vs Previous -- AP Spine (L1-L4) 04/10/2025 59 0.957 -0.8 1.8% -9.9%# 08/26/2021 55 1.063 0.1 13.0%# 6.2%* 06/03/2016 50 1.000 -0.4 6.4%# 6.4%# 05/11/2011 45 0.940 -1.0 Total Hip(Left) 04/10/2025 59 1.079 1.1 3.0%* -4.5%# 08/26/2021 55 1.129 1.5 7.8%# 2.6%* 06/03/2016 50 1.101 1.3 5.1%# 5.1%# 05/11/2011 45 1.048 0.9 Total Hip(Right) 04/10/2025 59 1.035 0.8 13.1%* -1.5%# 08/26/2021 55 1.051 0.9 14.8%# 6.0%* 06/03/2016 50 0.991 0.4 8.4%# 8.4%# 05/11/2011 45 0.915 -0.2 -- *Denotes significance at 95% confidence level, LSC for AP Spine = 0.022 g/cm2, LSC for Total Hip = 0.027 g/cm2 # Denotes dissimilar scan types or analysis methods Clinical Information Provided by Patient: Has used the following medications: Vitamin D, Calcium Has the following medical conditions: Hysterectomy Patient maximum height was 59 Menopause Age: 35 No regular weight bearing exercise Drinks caffeinated beverages Onset of menses at age 9 Number of children 3 Impression: The patient has low bone mass, based on the Right Femoral Neck T-score. The patient has an estimated ten-year risk of hip fracture of 0.4% and an estimated ten-year risk of major fracture of 6.3%, based on the WHO FRAX algorithm. Unable to evaluate interval change due to the use of different scan modes. Discussion: BONE DENSITY IS LOW AT ONE OR MORE SKELETAL SITES. This patient's lowest T-score is low at one or more skeletal sites. It meets the World Health Organization's (WHO) criteria for ?low bone mass? (T-score between -1.0 and -2.5). The patient's 10-year risk of fracture as calculated by FRAX is less than the threshold where pharmacological therapy is recommended by the National Osteoporosis Foundation (NOF). However, all treatment decisions require clinical judgment and consideration of individual patient factors, including patient preferences, comorbidities, previous drug use, risk factors not captured in the FRAX model (e.g., frailty, falls, vitamin D deficiency, increased bone turnover, interval significant decline in bone density) and possible under or overestimation of fracture risk by FRAX. The patient should follow a healthful lifestyle (good nutrition with adequate calcium and vitamin D, and appropriate weight-bearing exercise). Follow-Up: Consider repeating this study in 2 to 3 years to reassess this patient's status, or sooner if there is some new clinical indication. Reported by: JEFERSON on 04/10/2025 2:45:00 PM. Reviewed, dictated and finalized at location A.
== END 2025-04-10 14:27 | disposition home or self-care (01) ==
LOC: MICIMG 14:27
PROVIDERS: PCP Nurse Practitioner; Visit Provider Obstetrics & Gynecology Gynecology
DX: Z78.0 Asymptomatic menopausal state (principal); M85.851 Other specified disorders of bone density and structure, right thigh
CPT/HCPCS: 77080

== ENCOUNTER 2025-09-17 17:34 | Emergency (ER) | payer OTHER, SELFPAY ==
--- NOTE | ~2025-09-17 | XR_ITS ---
EXAM/PROCEDURE: XR chest 2V HISTORY: Cough x 2 weeks. Chills/sweats COMPARISON: 2010 TECHNIQUE: Two view(s) of the chest. FINDINGS: LUNGS: Clear of acute processes. PLEURAL SPACES: Clear. No evidence of fluid or pneumothorax. HEART/ MEDIASTINUM: Normal in appearance. SOFT TISSUES: No significant findings. BONES: No acute osseous abnormality. IMPRESSION: No acute findings. Reviewed, dictated and finalized at location A. RVISORY HISTORIAN IMPRESSION: No acute findings.
[2025-09-17 17:47] VITALS: BP 120/63; PULSE 102; RESP 20; TEMP 37.7; O2SAT 98
--- NOTE | 2025-09-17 18:08 | ED.URI ---
HPI - URI/Sore Throat General Chief Complaint: Upper Respiratory Infection Stated Complaint: URI Time Seen by Provider: 09/17/25 17:57 Source: patient and RN notes reviewed Mode of arrival: ambulatory Limitations: no limitations History of Present Illness HPI Narrative: 59-year-old female with history of hemochromatosis and hypertension presents today with a 2 week history of cough, fatigue, postnasal drip, sweats and chills. She recently developed some diarrhea as well. Denies shortness of breath, chest pain, fever. She has tried ibuprofen and Pepto-Bismol with some mild improvement. States daughter and grand children that live in her home have been sick with similar symptoms. Related Data Home Medications ?Medication ?Instructions ?Recorded ?Confirmed ?Last Taken ?Type ascorbate calcium (vitamin C) 500 500 mg PO DAILY 10/22/21 11/01/21 10/31/21 History mg capsule aspirin 81 mg tablet 81 mg PO DAILY 10/22/21 11/01/21 10/31/21 History ergocalciferol (vitamin D2) 1,250 1,250 mcg PO WEEKLY 10/22/21 11/01/21 10/31/21 History mcg (50,000 unit) capsule multivitamin with minerals-folic 1 tablet PO DAILY 10/22/21 11/01/21 10/31/21 History acid 0.4 mg tablet spironolactone 50 mg tablet 50 mg PO DAILY 10/22/21 11/01/21 10/31/21 History turmeric 100 mg-rory 150 1 cap PO DAILY 10/22/21 11/01/21 10/31/21 History mg-olive 50 mg-oreg 150 mg-capryl capsule oxybutynin chloride 5 mg mg PO 09/17/25 Unknown History tablet,extended release 24 hr Allergies Allergy/AdvReac Type Severity Reaction Status Date / Time No Known Allergies Allergy Verified 09/17/25 17:39 [facility] Past Medical History Medical History (Updated 09/17/25 @ 18:43 by Zoraida Rosas APRN, [employer] OPERATOR) Hemochromatosis Hypertension Surgical History Surgical History History of hysterectomy History of cholecystectomy Social History Social History Living arrangements: with family Spiritual care concerns: No Comments At time of signature, I have reviewed and agree with nursing past medical, surgical, social and family history unless otherwise noted. Please see nursing chart for further information. There is no relevant family history pertinent to the presenting complaint Exam Narrative: GENERAL: Mildly ill-appearing, well-nourished, and in no acute distress. HEAD: Normocephalic, atraumatic. EYES: EOMI. No redness or drainage. Conjunctivae normal. ENT: Mucous membranes pink and moist. Nares congested. No rhinorrhea. TMs normal bilaterally. Throat normal. Uvula midline. NECK: Normal AROM. Supple. No lymphadenopathy. CHEST: No respiratory distress. Clear to auscultation. HEART: Regular rate and rhythm. No murmur appreciated. ABDOMEN: Soft, nontender, nondistended, normal active bowel sounds. EXTREMITIES: Normal range of motion. No edema. SKIN: Warm, dry, no rash. Capillary refill normal. Normal skin turgor. NEURO: No focal deficits. Alert and oriented x3. Gait steady. PSYCH: Normal affect. No signs of depression or anxiety. Course Course Level of Care: Express Care Visit Vital Signs Vital signs: Vital Signs Temperature 99.9 F H 09/17/25 17:47 Pulse Rate 102 H 09/17/25 17:47 Respiratory Rate 20 09/17/25 17:47 Blood Pressure 120/63 09/17/25 17:47 Pulse Oximetry 98 09/17/25 17:47 Oxygen Delivery Room Air 09/17/25 17:47 Temperature 99.9 F H 09/17/25 17:47 Pulse Rate 102 H 09/17/25 17:47 Respiratory Rate 20 09/17/25 17:47 Blood Pressure 120/63 09/17/25 17:47 Pulse Oximetry 98 09/17/25 17:47 Oxygen Delivery Room Air 09/17/25 17:47 Reviewed MDM - URI/Sore Throat MDM Narrative Medical decision making narrative: 59-year-old female with history of hemochromatosis and hypertension presents today with a 2 week history of cough, fatigue, postnasal drip, sweats and chills. She recently developed some diarrhea as well. Denies shortness of breath, chest pain, fever. She has tried ibuprofen and Pepto-Bismol with some mild improvement. States daughter and grand children that live in her home have been sick with similar symptoms. Upon exam, patient is mildly ill appearing with some nasal congestion. Chest x-rays negative. Symptoms likely viral in etiology. Discussed OTC medication use and duration of illness. Patient will be treated with a short course of prednisone and some Tessalon Perles. Recommend PCP follow-up within 1 week if symptoms are not improving. Vital signs stable. Anticipatory guidance given. Differential Diagnosis Differential diagnosis: Likely upper respiratory infection, bronchitis and other (Pneumonia) Imaging Data Radiologist's impression: ITS Impressions Chest X-Ray 09/17/25 18:23 IMPRESSION: No acute findings. Critical Care Time Critical Care Time Critical Care Time: No Discharge Plan Discharge Clinical Impression: Bronchitis Patient Disposition: Home Condition: Stable Instructions: Acute Bronchitis (ED) Additional Instructions: Please take the prednisone and Tessalon Perles as directed. You may continue the ibuprofen as needed. Follow-up with your PCP if symptoms are not improving. Patient Language: Polish Prescriptions: New benzonatate 200 mg capsule 200 mg PO TID PRN (Reason: cough) Qty: 20 0RF prednisone 20 mg tablet 40 mg PO DAILY 5 Days Qty: 10 0RF No Action oxybutynin chloride 5 mg tablet extended release 24hr PO ergocalciferol (vitamin D2) 1,250 mcg (50,000 unit) capsule 1,250 mcg PO WEEKLY spironolactone 50 mg tablet 50 mg PO DAILY multivit with min-folic acid [Adult One Daily Multivitamin] 0.4 mg Tablet 1 tablet PO DAILY Adult Low Dose Aspirin 81 mg Tablet 81 mg PO DAILY ascorbate calcium (vitamin C) 500 mg Capsule 500 mg PO DAILY putbcicd-qwkz-ghsxy-oreg-capry 100 mg-150 mg- 50 mg-150 mg Capsule 1 cap PO DAILY Follow-up/Referrals: [place],NAUN Mayer [Primary Care Provider, Unknown] Stand Alone Forms: Work/School Release IP Time of Disposition: 18:44
--- OUTSIDE RECORDS SUMMARY | 2025-09-18 15:26 | XMS_ITS | Encounter Summary ---
Author Organization [facility] Address [address] [place] [phone] Phone Care Team Providers Care Ecommerce Marketing Manager Name Role Phone Jes Rhoades APRN, CNP Primary Care Provid er Encounter Details Date Type Department Care Team (Late st Contact Info) Description 06/14/2022 Telephone [facility] Oncology Services [address] [place] [phone] New Bell MD [address] [place], [place] [phone] Social History Tobacco Use Types Packs/Day Years Used Date Smoking Tobacco: Never Smokeless Tobacco: Never Alcohol Use Standard Drinks/Week Comments Never 0 (1 standard drink = 0.6 oz pur e alcohol) Comments No Sex and Gender Information Value Date Recorded Sex Assigned at Not on file Legal Sex Female 10:49 AM CDT Gender Identity Not on file Sexual Orientation Not on file COVID-19 Exposure Response Date Recorded In the last 10 days, have yo u been in contact with someone who was confirmed or suspected to have Coronavirus/COVID-19? No / Unsure 06/15/2022 2:26 PM CDT documented as of this encounter Miscellaneous Notes * Telephone Encounter - Rinaldi Mary Kate S - 06/14/2022 9:46 AM CDT Left a voicemail inquiring about the patient's lab work that was to be completed at [facility]. The patient will receive a phlebotomy tomorrow if indicated by lab work. However, Dr. Bell would like to see the patient every 4 months for a follow up and possible phlebotomy. Waiting to here from patient regarding labs and rescheduling 06/15/22 follow up. documented in this encounter Plan of Treatment Upcoming Encounters Date Type Department Care Team (Late st Contact Info) Description 11/12/2025 11:00 AM BANKING SUPERVISOR Clinical Support [facility] Oncology Services [address] [place] [phone] 12/29/2025 11:00 AM BANKING SUPERVISOR Clinical Support [facility] Oncology Services [address] [place] [phone] 02/17/2026 11:00 AM CDT Clinical Support [facility] Oncology Services [address] [place] [phone] 04/28/2026 11:00 AM CDT Clinical Support [facility] Oncology Services [address] [place] [phone] 09/11/2026 1:20 PM CDT Office Visit [facility] Oncology Services [address] [place] [address] Ann Hernandez, [facility] [address] [place] [address] 09/11/2026 2:00 PM CDT Clinical Support [facility] Oncology Services [address] [place] [phone] documented as of this encounter Visit Diagnoses Not on filedocumented in this encounter Care Teams Ecommerce Marketing Manager Relationship Specialty Start Date End Date Jes Rhoades, STEEL HEATER, MEMORY CARE PROGRAM RESIDENT [address] [place] [address] PCP - General Advanced Practice Nurse 04/07/21 documented as of this encounter
--- OUTSIDE RECORDS SUMMARY | 2025-09-18 15:26 | XMS_ITS | Encounter Summary ---
Author Organization [facility] Address [address] [place] [address] Phone Care Team Providers Care Medicine Aide Name Role Phone Jes Rhoades APRN, BEKAH Primary Care Provid er Encounter Details Date Type Department Care Team (Late Contact Info) Description 09/11/2025 Results Follow-Up [facility] Oncology Services [address] [place] [phone] Ann Hernandez Sol, PAC [address] [place] [address] COMPLETE BLOOD COUNT (CBC) WITH DIFF, CMP (COMPREHENSIVE METABOLIC PANEL), IRON,TRANSFERN,CALC. TIBC,%SAT, FERRITIN Social History Tobacco Use Types Packs/Day Years Used Date Smoking Tobacco: Never Smokeless Tobacco: Never Alcohol Use Standard Drinks/Week Comments Never 0 (1 standard drink = 0.6 oz pur e alcohol) Comments No Sex and Gender Information Value Date Recorded Sex Assigned at Not on file Legal Sex Female 10:49 AM CDT Gender Identity Not on file Sexual Orientation Not on file documented as of this encounter Plan of Treatment Upcoming Encounters Date Type Department Care Team (Late st Contact Info) Description 11/12/2025 11:00 AM ENROLLMENT MANAGER Clinical Support [facility] Oncology Services [address] [place] [phone] 12/29/2025 11:00 AM ENROLLMENT MANAGER Clinical Support [facility] Oncology Services [address] [place] [address] 02/17/2026 11:00 AM CDT Clinical Support [facility] Oncology Services [address] [place] [address] 04/28/2026 11:00 AM CDT Clinical Support [facility] Oncology Services [address] [place] [address] 09/11/2026 1:20 PM CDT Office Visit [facility] Oncology Services [address] [place] [address] Ann Hernandez, [facility] [address] [place] [address] 09/11/2026 2:00 PM CDT Clinical Support [facility] Oncology Services [address] [place] [address] documented as of this encounter Visit Diagnoses Not on filedocumented in this encounter Care Teams Medicine Aide Relationship Specialty Start Date End Date Jes Rhoades, SAFE TECHNICIAN, ELECTRIC CUTTER OPERATOR [address] [place] [address] PCP - General Advanced Practice Nurse 04/07/21 documented as of this encounter
--- OUTSIDE RECORDS SUMMARY | 2025-09-18 15:26 | XMS_ITS | Clinical Summary ---
Author Organization [facility] Address [address] [place] [address] Phone Care Team Providers Care Supervisor Cd Area Name Role Phone Jes Rhoades APRN, CNP Primary Care Provid er Allergies No known active allergies Medications spironolactone (ALDACTONE) 50 MG Tablet Take 50 mg by mouth. 04/01/2021 Active aspirin 81 MG Chewable Tablet Take 1 Tablet by mouth. Active Multiple Vitamins-Minera ls (KP Vision Formula) Tablet daily. Acti ve ergocalciferol (VITAMIN D) 32468 UNIT Capsule TAKE 1 CAPSULE BY MOUTH 1 TIME A WEEK 05/11/2021 Active Turmeric (QC TUMERIC COMPLEX PO) Take by mouth. Active oxybutynin (DITROPAN) 5 MG Tablet Take 5 mg by mouth daily. 09/04/2023 Active Active Problems Problem Noted Date Diagnosed Date Elevated LFTs 02/21/2022 Hereditary hemochromatosis 05/06/2021 Hypertension 05/06/2021 Encounters Date Type Department Care Team Description 09/12/2025 2:00 PM CDT [facility] [address] [place] [phone] Ann Hernandez Sol, PAC Hereditary hemochromatosis (Primary Dx) Discharge Disposition: Discharged to home or Selfcare 09/12/2025 1:20 PM CDT [facility] [address] [place] [phone] Ann Hernandez Sol, PAC Hereditary hemochromatosis (Primary Dx) Discharge Disposition: Discharged to home or Selfcare 09/12/2025 Travel 09/11/2025 Results Follow-Up [facility] Oncology Services [address] [place] [address] Ann Hernandez April, PAC COMPLETE BLOOD COUNT (CBC) WITH DIFF, CMP (COMPREHENSIVE METABOLIC PANEL), IRON,TRANSFERN,CALC.TIB C,%SAT, FERRITIN 09/10/2025 Travel from Last 3 Months Family History Medical History Relation Name Comments Cancer Father Heart Disease Father Hypertension Father Stroke Father Cancer Maternal Aunt Cancer Maternal Grandmother Hypertension Mother Relation Name Status Comments Father Maternal Aunt Maternal Grandmother Mother Alive Social History Tobacco Use Types Packs/Day Years Used Date Smoking Tobacco: Never Smokeless Tobacco: Never Tobacco Cessation:Counseling Given: Not Answered Alcohol Use Standard Drinks/Week Comments Never 0 (1 standard drink = 0.6 oz pur e alcohol) Comments No Sex and Gender Information Value Date Recorded Sex Assigned at Not on file Legal Sex Female 10:49 AM CDT Gender Identity Not on file Sexual Orientation Not on file Last Filed Vital Signs Vital Sign Reading Time Taken Comments Blood Pressure 126/83 09/12/2025 2:15 PM CDT Pulse 90 09/12/2025 2:15 PM CDT Temperature 36.4 C (97.5 F) 09/12/2025 1:45 PM CDT Respiratory Rate 16 09/12/2025 1:45 PM CDT Oxygen Saturation 99% 09/12/2025 1:45 PM CDT Inhaled Oxygen Concentration - - Weight 107.2 kg (236 lb 4.8 oz) 09/12/2025 1:45 PM CDT Height 149.9 cm (4' 11) 09/12/2025 1:45 PM CDT Body Mass Index 47.73 09/12/2025 1:45 PM CDT Plan of Treatment Upcoming Encounters Date Type Department Care Team (Late st Contact Info) Description 11/12/2025 11:00 AM MOTORCOACH OPERATOR Clinical Support [facility] Oncology Services [address] [place] [address] 12/29/2025 11:00 AM MOTORCOACH OPERATOR Clinical Support [facility] Oncology Services [address] [place] [address] 02/17/2026 11:00 AM CDT Clinical Support [facility] Oncology Services [address] [place] [address] 04/28/2026 11:00 AM CDT Clinical Support [facility] Oncology Services [address] [place] [address] 09/11/2026 1:20 PM CDT Office Visit [facility] Oncology Services [address] [place] [address] Ann Hernandez, PAC [address] [place] [address] 09/11/2026 2:00 PM CDT Clinical Support [facility] Oncology Services [address] [place] [address] Health Maintenance Due Date Last Done Comments Mammogram 1963 Pap Smear 1984 Cervical Cancer Screening (CCS) 1993 HPV/Cotest 1993 Cologuard 2008 Colonoscopy 2008 Colorectal Cancer Screening 2008 Immunochemical Fecal Occult Blood 2008 Pneumococcal Immunization (50+ years) (1 of 1 - PCV) 2013 Respiratory Syncytial Virus (RSV) Immunization (Adult) (1 - Risk 50-74 years 1-dose series) 2013 Zoster Immunization (1 of 2) 2013 Influenza Immunization (#1) 07/14/202510/14, 11/04/2022, 11/02/2021, Additional history exists SARS-COV-2 Immunization ( season) 2025 03/10/2022, 04/26/2021 DTaP/Tdap/Td Immunization Discontinued 05/03/2021 TdaP Immunization Completed 05/03/2021 Hepatitis C Virus (HCV) Screening Completed 11/03/2021 Hepatitis B Immunization Aged Out No longer eligible based on patient's age to complete this topic Human Papillomavirus (HPV) Immunization Aged Out No longer eligible based on patient's age to complete this topic Meningococcal Immunization (ACWY) Aged Out No longer eligible based on patient's age to complete this topic Rotavirus Immunization Aged Out No lo nger eligible based on patient's age to complete this topic Procedures Procedure Name Priority Date/Time Associated Diagnosis Comments FERRITIN Routine 09/10/2025 12:00 AM CDT IRON,TRANSFERN,CALC .TIBC,%SAT Routine 09/10/2025 12:00 AM CDT CMP (COMPREHENSIVE METABOLIC PANEL) Routine 09/10/2025 12:00 AM CDT COMPLETE BLOOD COUNT (CBC) WITH DIFF Routine 09/10/2025 12:00 AM CDT from Last 3 Months Results * IRON,TRANSFERN,CALC.TIBC,%SAT (09/10/2025 12:00 AM CDT) [facility] PAC CHEMISTRY ORDERABLES Monica l Result Performing Organization Address City/[facility] Co de Phone Number SCAN * FERRITIN (09/10/2025 12:00 AM CDT) [facility] PAC CHEMISTRY ORDERABLES Monica l Result SCAN * CMP (COMPREHENSIVE METABOLIC PANEL) (09/10/2025 12:00 AM CDT) [facility] PAC CHEMISTRY ORDERABLES Monica l Result SCAN * COMPLETE BLOOD COUNT (CBC) WITH DIFF (09/10/2025 12:00 AM CDT) Ann Sol Hernandez PAC HEMATOLOGY ORDERABLES Fin al Result SCAN from Last 3 Months Insurance Care Teams Supervisor Cd Area Relationship Specialty Start Date End Date Jes Rhoades APRN, RUBBER TRIMMER [address] [place] [phone] PCP - General Advanced Practice Nurse 04/07/21
--- OUTSIDE RECORDS SUMMARY | 2025-09-18 15:27 | XMS_ITS | Clinical Summary ---
Author Organization [facility] Address [facility] [place] [address] Care Team Providers Care Vice President Planning Name Role Phone Jes Rhoades NP Primary Care Provider [phone] Allergies No known active allergies Medications aspirin 81 MG chewable tablet Chew 1 tablet (81 mg total) by mouth daily. Active nystatin-triamci nolone cream 06/23/2020 Active Cholecalciferol 1.25 MG (54803 UT) Tab Take 1 tablet by mouth every 7 days. Active oxybutynin (DITROPAN) 5 MG tablet Take 1 tablet (5 mg total) by mouth daily. 07/31/2023 Active Turmeric Curcumin 500 MG Cap Active Multiple Vitamins-Mineral s (EQ VISION FORMULA 50+) Cap Act manuel Multiple Vitamins-Mineral s (VISION FORMULA 2 OR) Take by mouth 2 (two) times a day. Active spironolactone (ALDACTONE) 50 MG tabletIndication s:Potassium (K) deficiency Take 1 tablet (50 mg total) by mouth daily. 90 tablet 1 07/11/2025 Active Active Problems Problem Noted Date Diagnosed Date Overactive bladder 05/28/2024 Overview (05/28/2024): Is taking Oxybutin 5mg daily ordered by her svp operations. Has been having increase urination. No hx of diabetes. Assessment & Plan (06/03/2025 8:35 AM CDT): Chronic condition, controlled. No changes needed at this time. Assessment & Plan (12/02/2024 8:45 AM RESEARCH ENGINEER): Pt encouraged to work on Kegel exercises and her svp operations informed pt she can increase her oxybutin dose if she wishes to 10mg. Assessment & Plan (05/28/2024 10:03 AM CDT): Pt encouraged to work on Kegel exercises and her svp operations informed pt she can increase her oxybutin dose if she wishes to 10mg. Elevated LFTs 02/21/2022 Hypertension, unspecified type 06/24/2020 Overview (12/02/2024): Chronic condition that is controlled with spironolactone 50mg daily. Assessment & Plan (06/03/2025 8:42 AM CDT): Chronic condition. BP stable. No med changes needed at this time with her spironolactone. Goal for BP to stay below 140/90. Encourage lifestyle modifications to include healthy eating, decrease salt and caffeine in diet, routine exercise, and weight loss. Assessment & Plan (12/02/2024 8:44 AM RESEARCH ENGINEER): BP stable. No med changes needed at this time with her spironolactone. Goal for BP to stay below 140/90. Encourage lifestyle modifications to include healthy eating, decrease salt and caffeine in diet, routine exercise, and weight loss. Assessment & Plan (05/28/2024 9:38 AM CDT): BP stable. No med changes needed at this time with her spironolactone. Class 3 severe obesity with body mass index (BMI) of 50.0 to 59.9 in adult, unspecified obesity type, unspecified whether serious comorbidity present 06/24/2020 Overview (06/03/2025): History of obesity. Current BMI is 50.70. Has lost 8 pounds since I have seen her last. Is eating better. Assessment & Plan (06/03/2025 8:33 AM CDT): Encourage diet and lifestyle changes to assist with weight loss. Assessment & Plan (12/02/2024 8:43 AM RESEARCH ENGINEER): Encourage working on diet lifestyle medications to assist with weight loss. Encourage following a low fat, low carb diet, encorperate whole foods such as fresh fruits and vegetables and whole grains into your diet, encourage 5 small meals per day. Avoid sugar-sweetened beverages, added sugars, processed meats, refined grains and oils or other processed foods. Encourage to get at least 150 minutes of moderate aerobic activity or 75 minutes of vigorous aerobic activity a week, or a combination of moderate and vigorous activity. Assessment & Plan (05/28/2024 9:39 AM CDT): Encourage working on diet lifestyle medications to assist with weight loss. Encourage following a low fat, low carb diet, encorperate whole foods such as fresh fruits and vegetables and whole grains into your diet, encourage 5 small meals per day. Avoid sugar-sweetened beverages, added sugars, processed meats, refined grains and oils or other processed foods. Encourage to get at least 150 minutes of moderate aerobic activity or 75 minutes of vigorous aerobic activity a week, or a combination of moderate and vigorous activity. Sleep apnea, unspecified type 06/24/2020 Overview (05/28/2024): Compliant with use of CPAP. Assessment & Plan (06/03/2025 8:35 AM CDT): Resume compliance with use of CPAP. Assessment & Plan (12/02/2024 8:49 AM RESEARCH ENGINEER): Resume compliance with use of CPAP. Assessment & Plan (05/28/2024 9:39 AM CDT): Resume compliance with use of CPAP. Vitamin D deficiency 06/24/2020 Overview (06/03/2025): Hx of vitmain D deficiency. On replacement. Assessment & Plan (06/03/2025 8:35 AM CDT): Resume Vitamin D supplementation. Will recheck level. Assessment & Plan (12/02/2024 8:46 AM RESEARCH ENGINEER): Resume Vitamin D supplementation. Hereditary hemochromatosis 04/10/2018 Overview (05/28/2024): Hx of hereditary hemochromatosis.Follows with for her management of her hemochromatosis. Assessment & Plan (06/03/2025 8:40 AM CDT): Chronic condition. Continue to follow with Dr. Hernandez for management of her hemochromatosis Assessment & Plan (12/02/2024 8:44 AM RESEARCH ENGINEER): Continue to follow with Dr. Bell for management of her hemochromatosis. Assessment & Plan (05/28/2024 9:39 AM CDT): Continue to follow with Dr. Bell for management of her hemochromatosis. Encounters Date Type Department Care Team Description 09/12/2025 Scan HEALTH INFO SRVCS Scanned, Doc Med Group 07/11/2025 Orders Only [facility] Medical [facility] Family Medicine - [place] [address] [facility] [address] [place] [address] Noris Torre MA from Last 3 Months Immunizations Immunization Administration Dates Next Due Fluzone 6 Months+ Quad (0.5 mL Prefilled Syringe) 11/08/2023,11/04/2022,11/02/2021,2019 PFIZER COVID-19 (BARKER CAP), MRNA, LNP-S, PF, 30 MCG/0.3 ML BRIAN-SUCROSE, IM 03/10/2022 Tdap (Adacel) 05/03/2021 Family History Medical History Relation Comments Cancer Father colon cancer Heart Disease Father Hypertension Father Cancer Maternal Aunt Heart Disease Maternal Grandfather Arthritis Maternal Grandmother Cancer Maternal Grandmother colon cance r Arthritis Mother Early Hearing Loss Mother Hypertension Mother Vision loss Mother Glaucoma on set Endometriosis Sister Relation Status Comments Father Maternal Aunt Maternal Grandfather Maternal Grandmother Mother Sister Social History Tobacco Use Types Packs/Day Years Used Date Smoking Tobacco: Never Passive Smoke Exposure: Never Smokeless Tobacco: Never Tobacco Cessation:Counseling Given: No Comments:The provider can provide you with more information about quitting. Alcohol Use Standard Drinks/Week Comments Never 0 (1 standard drink = 0.6 oz pur e alcohol) PHQ-2 Answer Date Recorded Patient Health Questionnaire-2 Score 0 12/02/2024 Comments No Sex and Gender Information Value Date Recorded Sex Assigned at Female 04/10/2025 10:31 AM CDT Legal Sex Female 5:13 PM CDT Gender Identity Female 04/10/2025 10:31 AM CDT Sexual Orientation Not on file Last Filed Vital Signs Vital Sign Reading Time Taken Comments Blood Pressure 106/72 06/03/2025 8:16 AM CDT Pulse 94 06/03/2025 8:16 AM CDT Temperature 35.9 C (96.7 F) 06/03/2025 8:16 AM CDT Respiratory Rate 20 06/03/2025 8:16 AM CDT Oxygen Saturation 97% 06/03/2025 8:16 AM CDT Inhaled Oxygen Concentration - - Weight 113.9 kg (251 lb) 06/03/2025 8:16 AM CDT Height 149.9 cm (4' 11) 06/03/2025 8:16 AM CDT Body Mass Index 50.7 06/03/2025 8:16 AM CDT Plan of Treatment Upcoming Encounters Date Type Department Care Team (Late st Contact Info) Description 09/22/2025 9:00 AM RESEARCH ENGINEER Office Visit [facility] [address] [place] [phone] Jes Rhoades NP [address] [facility] [address] [place] [address] 12/01/2025 9:20 AM RESEARCH ENGINEER Office Visit [facility] [address] [facility] [address] [place] [address] Jes Rhoades NP [address] [facility] [address] [place] [address] Health Maintenance Due Date Last Done Comments Pneumococcal Vaccine: 50+ Years (1 of 1 - PCV) 2013 Zoster Vaccines (1 of 2) 2013 RSV Immunization or 60+ Years (1 - Risk 60-74 years 1-dose series) 2023 COVID-19 Vaccine (3 - 2024- season) 2025 03/10/2022, 04/26/2021 Influenza Adult (#1) 2025 11/08/2023, 11/04/2022, 11/02/2021, Additional history exists Mammogram Screening 11/30/2025 11/30/2024, 09/22/2023, 09/12/2022, Additional history exists Annual Physical 06/03/2026 06/03/2025, 05/13, 05/09/2023, Additional history exists Colorectal Cancer Screening Colonoscopy (10 Years) 11/02/2026 11/01/2021 Postponed from 11/01/2026 (Awaiting Documentation) DTaP, Tdap and Td Vaccines (2 - Td or Tdap) 05/03/2031 05/03/2021 Hepatitis C Completed 11/03/2021 PHQ-2 (Physician [place]) Completed 12/02/2024 Hepatitis A Vaccines Aged Out No long er eligible based on patient's age to complete this topic Meningococcal B Vaccine Aged Out No l onger eligible based on patient's age to complete this topic Meningococcal Vaccine Aged Out No alex mayelin eligible based on patient's age to complete this topic RSV Immunizations Under 20 Months Aged Out No longer eligible based on patient's age to complete this topic Procedures Procedure Name Priority Date/Time Associated Diagnosis Comments MAMMOGRAM GENERIC (SCAN ORDER) 11/30/2024 HEPATITIS C ANTIBODY Routine 11/03/2021 7:47 AM RESEARCH ENGINEER Need for hepatitis C screening test COLONOSCOPY GENERIC (SCAN ORDER) 11/01/2021 from Last 3 Months or Most Recently Relevant to Health Maintenance Results * MAMMOGRAM GENERIC (SCAN ORDER) (11/30/2024) Anatomical Region Laterality Modality Other 11/30/2024 us Doc [facility] Scanned SCANNING Final Resu lt * HEPATITIS C ANTIBODY (11/03/2021 7:47 AM RESEARCH ENGINEER) HEPATITIS C AB <0.1 0.0 - 0.9 s/co ratio [facility] 1 Comment: Negative: < 0.8 Indeterminate: 0.8 - 0.9 Positive: > 0.9 The CDC recommends that a positive HCV antibody result be followed up with a HCV Nucleic Acid Amplification test (973651). 11/03/2021 7:47 AM RESEARCH ENGINEER 11/03/2021 Narrative [facility] - 11/04/2021 8:07 AM RESEARCH ENGINEER Performed at: 01 - [facility] [address] [id number] Electric Plater: Darius Regan PhD, Phone: [phone] us Jes Rhoades NP LABORATORY Final Res ult Performing Organization Address City/State/[facility] Co de Phone Number [facility] [address] [place] [address] [facility] 1 * COLONOSCOPY GENERIC (11/01/2021) 11/01/2021 Narrative 11/01/2021 Ordered by an unspecified provider. us Documents Scanned SCANNING Final Result from Last 3 Months or Most Recently Relevant to Health Maintenance Insurance [facility] Member Subscriber Plan / Payer (Ef fective 2020-Present) Name:Jody Mayo Relation to Subscriber:Spouse Name:RIGOBERTO MAYO Date of :1958 (Home) Address: [address] [place] [address] Payer ID:[id number] (NAIC) Type:Not on file Address: [facility] [id number] [place] [phone] [facility] Care Teams Vice President Planning Relationship Specialty Start Date End Date Jes Rhoades NP [address] [place] [address] PCP - General NURSE PRACTITIONER 06/18/20
--- OUTSIDE RECORDS SUMMARY | 2025-09-18 15:27 | XMS_ITS | Encounter Summary ---
Author Organization [facility] Address [address] [place] [address] Care Team Providers Care Ct Tech Name Role Phone Jes Rhoades NP Primary Care Provider [phone] Encounter Details Date Type Department Care Team (Late Contact Info) Description 05/20/2023 Tessellahart Message Enc [facility] Family Medicine [facility] [address] [phone] Jes Rhoades, MALIKA [address] [place] [address] [place] [address] [phone] Question regarding CBC W/DIFF AUTOMATED Social History Tobacco Use Types Packs/Day Years Used Date Smoking Tobacco: Never Passive Smoke Exposure: Never Smokeless Tobacco: Never Comments:The provider can pr ovide you with more information about quitting. Alcohol Use Standard Drinks/Week Comments Never 0 (1 standard drink = 0.6 oz pur e alcohol) PHQ-2 Answer Date Recorded Patient Health Questionnaire-2 Score 0 05/09/2023 Comments No Sex and Gender Information Value Date Recorded Sex Assigned at Female 04/10/2025 10:31 AM CDT Legal Sex Female 5:13 PM CDT Gender Identity Female 04/10/2025 10:31 AM CDT Sexual Orientation Not on file documented as of this encounter Plan of Treatment Upcoming Encounters Date Type Department Care Team (Late Contact Info) Description 09/22/2025 9:00 AM LOGISTICS OPERATIONS MANAGER Office Visit [facility] [address] [facility] [address] [place] [address] [phone] Jes Rhoades NP [address] [place], [place] [address] 12/01/2025 9:20 AM LOGISTICS OPERATIONS MANAGER Office Visit [facility] - [place] [address] [facility] [address] [place] [address] Jes Rhoades NP [address] [place], [place] [address] documented as of this encounter Visit Diagnoses Not on filedocumented in this encounter Additional Health Concerns Infection Onset Date Last Indicated Resolved Time COVID-19 Rule Out 08/31/2023 08/31/2023 08/31/2023 12:05 PM CDT Assessment Noted Time PHQ-9 Depression Total Score: 0 11/02/20 21 12:59 PM LOGISTICS OPERATIONS MANAGER documented as of this encounter Care Teams Ct Tech Relationship Specialty Start Date End Date Jes Rhoades NP [address] [place] [address] PCP - General NURSE PRACTITIONER 06/18/20 documented as of this encounter
--- OUTSIDE RECORDS SUMMARY | 2025-09-18 15:27 | XMS_ITS | Encounter Summary ---
Author Organization [facility] [place] Address [address] [place] [address] Care Team Providers Care Chip Applying Machine Tender Name Role Phone Jes Rhoades NP Primary Care Provider [phone] Encounter Details Date Type Department Care Team (Latest Contact Info) Description 09/12/2025 Scan HEALTH INFO SRVCS Scanned, Doc Med Group Social History Tobacco Use Types Packs/Day Years [...] Upcoming Encounters Date Type Department Care Team ( st Contact Info) Description 09/22/2025 9:00 AM REGIONAL REHABILITATION DIRECTOR Office Visit [facility] Family Medicine [facility] [address] [phone] Jes Rhoades NP [address] [address] 12/01/2025 9:20 AM REGIONAL REHABILITATION DIRECTOR Office Visit [facility] [address] [address] Jes Rhoades NP [address] [place] [address] documented as of this encounter Visit Diagnoses Not on filedocumented in this encounter Additional Health Concerns Assessment Noted Time PHQ-9 Depression Total Score: 0 11/02/20 21 12:59 PM REGIONAL REHABILITATION DIRECTOR documented as of this encounter Care Teams Chip Applying Machine Tender Relationship Specialty Start Date End Date Jes Rhoades NP [address] [place] [address] PCP - General NURSE PRACTITIONER 06/18/20 documented as of this encounter
--- OUTSIDE RECORDS SUMMARY | 2025-09-18 15:27 | XMS_ITS | Encounter Summary ---
Author Organization [facility] Address [facility] [place] [address] Care Team Providers Care Belt Tender Name Role Phone Jes Rhoades NP Primary Care Provider [phone] Encounter Details Date Type Department Care Team (Late st Contact Info) Description 05/06/2022 [employer] Message Enc [facility] Family [facility] [address] [phone] Jes Rhoades, MALIKA [address] [phone] [place] results Social History Tobacco Use Types Packs/Day Years Used Date Smoking Tobacco: Never Smokeless Tobacco: Never Comments:The provider can pr ovide you with more information about quitting. Alcohol Use Standard Drinks/Week Comments Never 0 (1 standard drink = 0.6 oz pur e alcohol) PHQ-2 Answer Date Recorded PHQ-2 Score - If the patient scores above 3, please move on to questions 3-9 0 11/02/2021 Comments No Sex and Gender Information Value Date Recorded Sex Assigned at Female 04/10/2025 10:31 AM CDT Legal Sex Female 5:13 PM CDT Gender Identity Female 04/10/2025 10:31 AM CDT Sexual Orientation Not on file COVID-19 Exposure Response Date Recorded In the last 10 days, have yo u been in contact with someone who was confirmed or suspected to have Coronavirus/COVID-19? No / Unsure 05/05/2022 2:44 PM CDT documented as of this encounter Plan of Treatment Upcoming Encounters Date Type Department Care Team (Late st Contact Info) Description 09/22/2025 9:00 AM LAST PATTERN GRADER Office Visit [facility] [address] [facility] [address] [place] [address] Jes Rhoades NP [address] [place] [address] 12/01/2025 9:20 AM LAST PATTERN GRADER Office Visit [facility] [address] [facility] [address] [place] [address] Jes Rhoades NP [address] [place], [place] [address] documented as of this encounter Visit Diagnoses Not on filedocumented in this encounter Additional Health Concerns Infection Onset Date Last Indicated Resolved Time COVID-19 Rule Out 08/31/2023 08/31/2023 08/31/2023 12:05 PM CDT Assessment Noted Time PHQ-9 Depression Total Score: 0 11/02/20 21 12:59 PM LAST PATTERN GRADER documented as of this encounter Care Teams Belt Tender Relationship Specialty Start Date End Date Jes Rhoades NP [address] [place] [address] PCP - General NURSE PRACTITIONER 06/18/20 documented as of this encounter
--- OUTSIDE RECORDS SUMMARY | 2025-09-18 15:27 | XMS_ITS | Clinical Summary ---
Author Organization [facility] Address [address] [place] [address] Care Team Providers Care Hair Tinter Name Role Phone No, Physician Primary Care Provider [phone] Allergies No known active allergies Medications aspirin 81 mg tablet daily. Active calcium carbonate-vitam in D3 (CALCIUM 500 + D) 1,250mg (500mg elemental) - 200 units per tablet daily. Active multivitamin-mi x-zfiv-KY-vit K (MULTI FOR HER) 18 mg iron-600 mcg-40 mcg capsule daily. Active nystatin cream As directed Act manuel A-C-E-zinc ox-selen AA-copper (VISION FORMULA) 1,000 unit-60 mg-30 unit tablet daily. Active cholecalciferol (VITAMIN D-3) 2,000 unit tablet 38542 units twice a week Active ascorbic acid (ascorbic acid) 500 mg tablet,chewable daily. Acti ve cholecalciferol (VITAMIN D-3) 5,000 unit tablet Active ergocalciferol (VITAMIN D) 50,000 unit capsule TK 1 C PO TWICE WEEKLY 1 05/28/2019 Active cyanocobalamin, vitamin B-12, (VITAMIN B-12 ORAL) Take by mouth Active POTASSIUM CHLORIDE ORAL Take by mouth Ac tive chlorthalidone 50 mg tablet Take 50 mg by mouth daily Active Active Problems Problem Noted Date Diagnosed Date Hereditary hemochromatosis 04/10/2018 Family History Medical History Relation Name Comments Cancer Father Family history of malignant neoplasm - (Added by TW Conv) Heart disease Father Family history of cardiac disorder - (Added by TW Conv) Hypertension Father Family history of hypertension - (Added by TW Conv) Stroke Father Family history of cerebrovascular accident - (Added by TW Conv) Heart disease Maternal Grandfather Family history of cardiac disorder - (Added by TW Conv) Arthritis Maternal Grandmother Family history of arthritis - (Added by TW Conv) Cancer Maternal Grandmother Family history of malignant neoplasm - (Added by TW Conv) Arthritis Mother Family history of arthritis - (Added by TW Conv) Hypertension Mother Family history of hypertension - (Added by TW Conv) Arthritis Other 1 Family history of arthritis - Relation: Aunt (Added by TW Conv) Cancer Other 2 Family history of malignant neoplasm - Relation: Aunt (Added by TW Conv) Relation Name Status Comments Father Maternal Grandfather Maternal Grandmother Mother Other 1 Other 2 Social History Tobacco Use Types Packs/Day Years Used Date Smoking Tobacco: Never Smokeless Tobacco: Never Comments Unknown Sex and Gender Information Value Date Recorded Sex Assigned at Not on file Legal Sex Female 7:36 AM LICENSED PHYSICAL THERAPY ASSISTANT Gender Identity Not on file Sexual Orientation Not on file Last Filed Vital Signs Vital Sign Reading Time Taken Comments Blood Pressure 128/81 12/28/2020 9:27 AM LICENSED PHYSICAL THERAPY ASSISTANT Pulse 99 12/28/2020 9:27 AM LICENSED PHYSICAL THERAPY ASSISTANT Temperature 36.7 C (98 F) 12/28/2020 9:27 AM LICENSED PHYSICAL THERAPY ASSISTANT Respiratory Rate 20 12/28/2020 9:27 AM LICENSED PHYSICAL THERAPY ASSISTANT Oxygen Saturation 99% 12/28/2020 9:27 AM LICENSED PHYSICAL THERAPY ASSISTANT Inhaled Oxygen Concentration - - Weight 118.3 kg (260 lb 12.9 oz) 12/28/2020 9:27 AM LICENSED PHYSICAL THERAPY ASSISTANT Height 149.5 cm (4' 10.86) 12/28/2018 9:[address] Body Mass Index 52.93 12/28/2018 9:00 AM LICENSED PHYSICAL THERAPY ASSISTANT Plan of Treatment Not on file Insurance [facility] [employer] [facility] HMO/PPO Address: [address] [place] [address] ANTHEM ACCESS ANTHEM ACCESS CHOICE Member Subscriber Plan / Payer (Ef fective 2018-Present) Name:Jody Mayo Relation to Subscriber:Self Name:JODY MAYO Payer ID:[id number] (NAIC) Type:[employer] Address: [address] [employer] [facility] HMO/PPO Address: [address] [place] [address] Care Teams Hair Tinter Relationship Specialty Start Date End Date No, Physician PCP - General 12/31/20
== END 2025-09-17 18:46 | disposition home or self-care (01) ==
PROVIDERS: Emergency Provider Nurse Practitioner; PCP Nurse Practitioner
DX: J40 Bronchitis, not specified as acute or chronic (principal); I10 Essential (primary) hypertension
CPT/HCPCS: 71046; 99213; G0463

== ENCOUNTER 2025-09-25 12:01 | Inpatient (IN) | payer OTHER, SELFPAY ==
[2025-09-25] VITALS (7 sets, daily range): BP systolic 107–138; BP diastolic 60–89; PULSE 86–111; RESP 15–20; TEMP 36.6–36.8; O2SAT 90–100; BMI 47.5
--- NOTE | ~2025-09-25 | XR_ITS ---
EXAM/PROCEDURE: XR retrograde pyelo w/stent LT HISTORY: LEFT SPECIAL COMPARISON: None available. TECHNIQUE: Fluoroscopic guided pyelography performed by urologist. Fossae time: 20.4 seconds Cumulative dose: 10.15 mGy FINDINGS: Left-sided collecting system and ureter visualized with mild pelvocaliectasis but no obvious obstruction or extravasation of contrast. IMPRESSION: No discrete filling defect within the left collecting system or ureter; no extravasation of contrast seen. Reviewed, dictated and finalized at location A. LER LEAD TEACHER IMPRESSION: No discrete filling defect within the left collecting system or ure ter; no extravasation of contrast seen.
--- NOTE | ~2025-09-25 | CT_ITS ---
CT abdomen pelvis wo con INDICATION:fever, n/v, ab pain . COMPARISON: 04/22/2024 TECHNIQUE: Axial 2.5 mm images of the abdomen were obtained without IV or oral contrast. Diagnostic sensitivity is limited due to lack of IV contrast. FINDINGS: The lung bases are clear. Fatty infiltration of the liver is noted. No intrahepatic mass or ductal dilatation is evident. The patient has had a cholecystectomy. The pancreas and spleen are normal in appearance. The adrenal glands are symmetric in size. Contrast from previous study is noted within the renal pelves sees and ureters bilaterally. The kidneys are unremarkable. No intrarenal stones are noted. There is no hydronephrosis. Evaluation of the stomach and bowel loops are limited due to lack of oral contrast. Bowel loops are normal in caliber. No pneumatosis is seen. No acute appendicitis. The bladder and rectum are normal. No free intraperitoneal fluid or air is evident. There is a complex cystic mass with adjacent induration within the left iliopsoas measuring 9.4 x 12.1 x 7.3 cm. This may represent abscess. Other considerations include evolving hematoma or cystic tumor. The aorta, visceral vessels and renal arteries demonstrate normal caliber. The lower thoracic and lumbar vertebrae are in normal alignment. IMPRESSION: Complex cystic mass within the left iliopsoas muscle with adjacent induration measuring 9.4 x 12.1 x 7.3 cm suggestive of an abscess. All CT scans at this facility are performed using low dose modulation techniques as appropriate to perform exam including the following: automated exposure control; use of iterative reconstruction technique; adjustment of the mA and/or kV according to patient size (this includes techniques or standardized protocols for targeted exams where dose is matched to indication/reason for exam). Reviewed, dictated and finalized at location S. PMENT MAINTENANCE SUPERINTENDENT IMPRESSION: Complex cystic mass within the left iliopsoas muscle with adjacent induration m easuring 9.4 x 12.1 x 7.3 cm suggestive of an abscess. All CT scans at this facility are performed using low dose modulation techniqu es as appropriate to perform exam including the following: automated exposure c ontrol; use of iterative reconstruction technique; adjustment of the mA and/or kV according to patient size (this includes techniques or standardized protocol s for targeted exams where dose is matched to indication/reason for exam).
--- NOTE | ~2025-09-25 | XR_ITS ---
EXAMINATION: XR chest 2V DATE: 09/25/2025 14:49 INDICATION: cough TECHNIQUE: Frontal and lateral views of the chest were obtained. COMPARISON: September 17 FINDINGS: The lungs are clear and heart size normal. Bones and upper abdomen stable. IMPRESSION: 1. No focal acute process seen. Reviewed, dictated and finalized at location A. T LIGHTING SPECIALIST
--- NOTE | ~2025-09-25 | CT_ITS ---
EXAM/PROCEDURE: CT abdomen pelvis wo con HISTORY: f/u large retroperitoneal abscess COMPARISON: September 25 TECHNIQUE: Noncontrast CT of the abdomen and pelvis FINDINGS: Patient has undergone left-sided percutaneous perinephric/left psoas drain placement with near complete evacuation of previously described 12.1 x 9.4 x 7.3 cm complex cystic mass or abscess. Small amount of residual fluid in posterior Gerota's fascia and perinephric space posteriorly. The lateral margin of the left psoas muscle also remains somewhat distorted and probably infiltrated. No other abscess or drainable fluid collection seen. 5 mm low pole as well as punctate nonobstructing left-sided kidney stones. 3 mm lower pole nonobstructing right kidney stone. No hydroureteronephrosis. Urinary bladder nondistended and unopacified. Liver spleen adrenal glands stomach and aorta stable for technique. Gallbladder and uterus appear removed. Bones intact. Lung bases clear. IMPRESSION: Directed noncontrast exam demonstrating interval placement of left percutaneous psoas/perinephric abscess drain with small amount of residual fluid. No other abscess. Reviewed, dictated and finalized at location A. SPEED WARPER TENDER IMPRESSION: Directed noncontrast exam demonstrating interval placement of left percutaneous psoas/perinephric abscess drain with small amount of residual flui d. No other abscess.
--- NOTE | ~2025-09-25 | CT_ITS ---
EXAMINATION: CT guide absc cath placement DATE: 09/26/2025 15:23 INDICATION: Left iliopsoas abscess TECHNIQUE: The procedure including the risks and benefits was discussed with the patient. Risks discussed included bleeding and infection. The patient understood the risks and benefits and agreed to proceed. The patient was confirmed to be receiving appropriate antibiotic coverage. The skin overlying the left flank was prepped and draped in usual sterile fashion. Anesthetic was administered with 1% lidocaine subcutaneously. Conscious sedation was provided by the department of anesthesia. Utilizing CT guidance an 18-gauge trochar needle was inserted into the peritoneal fluid collection. The inner stylette was removed and a J-wire advanced into the fluid collection with position confirmed by CT. Needle was removed and utilizing Seldinger technique the tract was serially dilated over the wire to 12 Fr. A 12 Fr pigtail catheter was then placed and the loop formed and locked with position confirmed by CT. The catheter was stitched to the skin with suture. Antibiotic ointment and a sterile dressing were applied. An additional adhesive fixation device was applied. The dose-length product was 297.97 mGy-cm. FINDINGS: CT images demonstrate the catheter within the left psoas abscess. 50 mL fluid was aspirated for testing. An additional 250 mL was then aspirated from the abscess. IMPRESSION: 1. Successful CT-guided abscess drainage. 2. 50 mL of purulent appearing opaque saenz foul-smelling fluid was sent for aerobic and anaerobic cultures. 3. The catheter will be managed by Dr. Douglass. Reviewed, dictated and finalized at location A. ID YEAST SUPERVISOR IMPRESSION: 1. Successful CT-guided abscess drainage. 2. 50 mL of purulent appearing opaque saenz foul-smelling fluid was sent for aero bic and anaerobic cultures. 3. The catheter will be managed by Dr. Douglass.
--- NOTE | ~2025-09-25 | CT_ITS ---
EXAMINATION: CTA chest PE protocol, 09/25/2025 15:10 FIREMAN HISTORY: SOB, tachycardia COMPARISON: No comparisons available. TECHNIQUE: CTA examination is obtained with contrast CTA examination technique is performed with arterial phase of contrast-enhancement. 3-D reconstruction with thin MIP axial and MPR coronal imaging is provided Isovue 300, 92cc injected IV. One or more of the following dose reduction techniques were used: automated exposure control, adjustment of the mA and/or kV according to patient size, use of iterative reconstruction technique. FINDINGS: No significant coronary calcification is present ([id number]) LUNGS: The contrast bolus is adequate, there is no pulmonary embolism identified. No tracheomalacia. No bronchiectasis. No significant emphysematous of pulmonary fibrotic changes. HEART AND PERICARDIUM: Within normal limits. AORTA: Normal caliber aorta.. PULMONARY ARTERIES: No pulmonary embolism ADENOPATHY/MEDIASTINUM: Calcified mediastinal lymph nodes. LIMITED VIEWS OF THE ABDOMEN: Within normal limits. OSSEOUS STRUCTURES: No sclerotic or lytic lesions. No acute rib fractures. OVERLYING SOFT TISSUES: Unremarkable. THYROID: The thyroid is unremarkable. IMPRESSION: Negative for pulmonary embolism. No acute process Reviewed, dictated and finalized at location P. MAN
--- OUTSIDE RECORDS SUMMARY | 2025-09-25 12:53 | XMS_ITS | Clinical Summary ---
Author Organization [facility] Address [address] [place] [address] Phone Care Team Providers Care Machine Hoop Maker Name Role Phone Jes Rhoades APRN, CNP Primary Care Provid er Allergies No known active allergies Medications spironolactone (ALDACTONE) 50 MG Tablet Take 50 mg by mouth. 04/01/2021 Active aspirin 81 MG Chewable Tablet Take 1 Tablet by mouth. Active Multiple Vitamins-Minera ls (KP Vision Formula) Tablet daily. Acti ve ergocalciferol (VITAMIN D) 24920 UNIT Capsule TAKE 1 CAPSULE BY MOUTH 1 TIME A WEEK 05/11/2021 Active Turmeric (QC TUMERIC COMPLEX PO) Take by mouth. Active oxybutynin (DITROPAN) 5 MG Tablet Take 5 mg by mouth daily. 09/04/2023 Active Active Problems Problem Noted Date Diagnosed Date Elevated LFTs 02/21/2022 Hereditary hemochromatosis 05/06/2021 Hypertension 05/06/2021 Encounters Date Type Department Care Team Description 09/12/2025 2:00 PM CDT [facility] [address] [place] [phone] Ann Hernandez Sol, PAC Hereditary hemochromatosis (Primary Dx) Discharge Disposition: Discharged to home or Selfcare 09/12/2025 1:20 PM CDT [facility] [address] [place] [phone] Ann Hernandez Sol, PAC Hereditary hemochromatosis (Primary Dx) Discharge Disposition: Discharged to home or Selfcare 09/12/2025 Travel 09/11/2025 Results Follow-Up [facility] Oncology Services [address] [place] [address] Ann Hernandez April, PAC COMPLETE BLOOD COUNT [...] st Contact Info) Description 11/12/2025 11:00 AM CONSTRUCTION REPRESENTATIVE Clinical Support [facility] Oncology Services [address] [place] [address] 12/29/2025 11:00 AM CONSTRUCTION REPRESENTATIVE Clinical Support [facility] Oncology Services [address] [place] [address] 02/17/2026 11:00 AM CDT Clinical Support [facility] Oncology Services [address] [place] [address] 04/28/2026 11:00 AM CDT Clinical Support [facility] Oncology Services [address] [place] [address] 09/11/2026 1:20 PM CDT Office Visit [facility] Oncology Services [address] [place] [address] Ann Hernandez, PAC [address] [place] [address] 09/11/2026 2:00 PM CDT Clinical Support [facility] Oncology Services [address] [place] [address] Health Maintenance Due Date Last Done Comments [...] Results * IRON,TRANSFERN,CALC.TIBC,%SAT (09/10/2025 12:00 AM CDT) [facility] PAC CHEMISTRY ORDERABLES Monica l Result Performing Organization Address City/[facility] Co de Phone Number SCAN * FERRITIN (09/10/2025 12:00 AM CDT) [facility] PAC CHEMISTRY ORDERABLES Monica l Result SCAN * CMP (COMPREHENSIVE METABOLIC PANEL) (09/10/2025 12:00 AM CDT) [facility] PAC CHEMISTRY ORDERABLES Monica l Result SCAN * COMPLETE BLOOD COUNT (CBC) WITH DIFF (09/10/2025 12:00 AM CDT) Ann Sol Hernandez PAC HEMATOLOGY ORDERABLES Fin al Result SCAN from Last 3 Months Insurance Care Teams Machine Hoop Maker Relationship Specialty Start Date End Date Jes Rhoades APRN, DOCUMENT RESTORER [address] [place] [phone] PCP - General Advanced Practice Nurse 04/07/21
--- OUTSIDE RECORDS SUMMARY | 2025-09-25 12:53 | XMS_ITS | Encounter Summary ---
Author Organization [facility] Address [address] [place] [address] Phone Care Team Providers Care Security Escort Name Role Phone Jes Rhoades APRN, CNP Primary Care Provid er Encounter Details Date Type Department Care Team (Late st Contact Info) Description 06/14/2022 Telephone [facility] Oncology Services [address] [place] [phone] [place] MD [address] [place], [place] [phone] Social History Tobacco Use Types Packs/Day Years [...] work that was to be completed at [employer]. The patient will receive a phlebotomy tomorrow [...] st Contact Info) Description 11/12/2025 11:00 AM MANAGER DISH Clinical Support [facility] Oncology Services [address] [place] [phone] 12/29/2025 11:00 AM MANAGER DISH Clinical Support [facility] Oncology Services [address] [place] [phone] 02/17/2026 11:00 AM CDT Clinical Support [facility] Oncology Services [address] [place] [phone] 04/28/2026 11:00 AM CDT Clinical Support [facility] Oncology Services [address] [place] [phone] 09/11/2026 1:20 PM CDT Office Visit [facility] Oncology Services [address] [place] [address] Ann Hernandez, [facility] [address] [place] [address] 09/11/2026 2:00 PM CDT Clinical Support [facility] Oncology Services [address] [place] [phone] documented as of this encounter Visit Diagnoses Not on filedocumented in this encounter Care Teams Security Escort Relationship Specialty Start Date End Date Jes Rhoades, ROLL CLEANER, SHAKE MAKER [address] [place] [address] PCP - General Advanced Practice Nurse 04/07/21 documented as of this encounter
--- OUTSIDE RECORDS SUMMARY | 2025-09-25 12:53 | XMS_ITS | Clinical Summary ---
Author Organization [facility] Address [address] [place] [address] Care Team Providers Care Microwave Radio Technician Name Role Phone No, Physician Primary Care Provider [phone] Allergies No known active allergies Medications aspirin 81 mg tablet daily. Active calcium carbonate-vitam in D3 (CALCIUM 500 + D) 1,250mg (500mg elemental) - 200 units per tablet daily. Active multivitamin-mi p-jtjc-DO-vit K (MULTI FOR HER) 18 mg iron-600 mcg-40 mcg capsule daily. Active nystatin cream As directed Act manuel A-C-E-zinc ox-selen AA-copper (VISION FORMULA) 1,000 unit-60 mg-30 unit tablet daily. Active cholecalciferol (VITAMIN D-3) 2,000 unit tablet 8[address]56 units twice a week Active ascorbic acid [...] on file Legal Sex Female 7:36 AM MINING TEACHER Gender Identity Not on file Sexual Orientation Not on file Last Filed Vital Signs Vital Sign Reading Time Taken Comments Blood Pressure 128/81 12/28/2020 9:27 AM MINING TEACHER Pulse 99 12/28/2020 9:27 AM MINING TEACHER Temperature 36.7 C (98 F) 12/28/2020 9:27 AM MINING TEACHER Respiratory Rate 20 12/28/2020 9:27 AM MINING TEACHER Oxygen Saturation 99% 12/28/2020 9:27 AM MINING TEACHER Inhaled Oxygen Concentration - - Weight 118.3 kg (260 lb 12.9 oz) 12/28/2020 9:27 AM MINING TEACHER Height 149.5 cm (4' 10.86) 12/28/2018 9:[address] Body Mass Index 52.93 12/28/2018 9:00 AM MINING TEACHER Plan of Treatment Not on file Insurance [facility] [employer] ANTHEM ACCESS ANTHEM ACCESS CHOICE Member Subscriber Plan / Payer (Ef fective 2018-Present) Name:Jody Mayo Relation to Subscriber:Self Name:JODY MAYO Payer ID:[id number] (NAIC) Type:[employer] Address: [address] [employer] Care Teams Microwave Radio Technician Relationship Specialty Start Date End Date No, Physician PCP - General 12/31/20
--- OUTSIDE RECORDS SUMMARY | 2025-09-25 12:53 | XMS_ITS | Encounter Summary ---
Author Organization [facility] Address [address] [place] [address] Phone Care Team Providers Care Crew Team Member Name Role Phone Jes Rhoades APRN, BEKAH Primary Care Provid er Encounter Details Date Type Department Care Team (Late Contact Info) Description 09/11/2025 Results Follow-Up [facility] Oncology Services [address] [place] [phone] Ann Hernandez Sol, PAC [address] [place] [address] COMPLETE BLOOD COUNT (CBC) WITH DIFF, CMP [...] st Contact Info) Description 11/12/2025 11:00 AM TELEHEALTH CASE MANAGER Clinical Support [facility] Oncology Services [address] [place] [phone] 12/29/2025 11:00 AM TELEHEALTH CASE MANAGER Clinical Support [facility] Oncology Services [address] [place] [address] 02/17/2026 11:00 AM CDT Clinical Support [facility] Oncology Services [address] [place] [address] 04/28/2026 11:00 AM CDT Clinical Support [facility] Oncology Services [address] [place] [address] 09/11/2026 1:20 PM CDT Office Visit [facility] Oncology Services [address] [place] [address] Ann Hernandez, [facility] [address] [place] [address] 09/11/2026 2:00 PM CDT Clinical Support [facility] Oncology Services [address] [place] [address] documented as of this encounter Visit Diagnoses Not on filedocumented in this encounter Care Teams Crew Team Member Relationship Specialty Start Date End Date Jes Rhoades, CAMERA OPERATOR, BLOOD COLLECTOR [address] [place] [address] PCP - General Advanced Practice Nurse 04/07/21 documented as of this encounter
--- NOTE | 2025-09-25 13:22 | ED.SOB ---
HPI - SOB/Dyspnea General Chief Complaint: Shortness of Breath/Dyspnea <Jada Kapadia PA-C - Last Filed: 10/04/25 14:29> Stated Complaint: SOB <Jada Kapadia PA-C - Last Filed: 10/04/25 14:29> Time Seen by Provider: 09/25/25 13:22 <Jada Kapadia PA-C - Last Filed: 10/04/25 14:29> Focused HPI: This is a 59 year old female that presents to the ER for chills, fever. Reports nausea, reflux. Reports shortness of breath, cough. Reports these symptoms have been ongoing for months. GENERAL: Well-appearing, well-nourished, and in no acute distress. HEAD: Normocephalic, atraumatic. CHEST: Clear to auscultation. ?No respiratory distress. HEART: Regular rate and rhythm.? NEURO: ?Alert and oriented x3. Patient screened in triage and initial orders placed.? ?Additional care and disposition to be based upon?diagnostic testing and treatment. <Jaad Kapadia PA-C - Last Filed: 10/04/25 14:29> History of Present Illness HPI Narrative: Agree with the above HPI <Justus Zhou MD - Last Filed: 10/05/25 07:56> Related Data Home Medications: Home Medications ?Medication ?Instructions ?Recorded ?Confirmed ?Last Taken ?Type aspirin 81 mg tablet 81 mg PO DAILY 10/22/21 09/25/25 09/25/25 History ergocalciferol (vitamin D2) 1,250 1,250 mcg PO WEEKLY 10/22/21 09/25/25 09/24/25 History mcg (50,000 unit) capsule spironolactone 50 mg tablet 50 mg PO DAILY 10/22/21 09/25/25 09/25/25 History Held on 10/01/25. Instructions: Resume on 10/15/25. hold until kidney function is rechecked and PCP directs you to restart it turmeric 100 mg-rory 150 1 cap PO DAILY 10/22/21 09/25/25 10/31/21 History mg-olive 50 mg-oreg 150 mg-capryl capsule oxybutynin chloride 5 mg 5 mg PO DAILY 1109/25/25 09/25/25 History tablet,extended release 24 hr <Jada Kapadia PA-C - Last Filed: 10/04/25 14:29> Allergies/Adverse Reactions: Allergies Allergy/AdvReac Type Severity Reaction Status Date / Time No Known Allergies Allergy Verified 09/25/25 19:02 <Jada Kapadia PA-C - Last Filed: 10/04/25 14:29> Review of Systems Review of Systems: All systems reviewed & are unremarkable except as noted in HPI and below <Jada Kapadia PA-C - Last Filed: 10/04/25 14:29> [facility] Past Medical History Medical History: Medical History (Updated 09/29/25 @ 07:00 by Allyson Ledesma PA-C) Hereditary hemochromatosis History of postoperative nausea and vomiting Kidney stones History of colon polyps GERD (gastroesophageal reflux disease) Migraine Hypertension <Jada Kapadia PA-C - Last Filed: 10/04/25 14:29> Surgical History Surgical History: Surgical History History of elbow surgery History of hysterectomy (1999) History of cholecystectomy <Jada Kapadia PA-C - Last Filed: 10/04/25 14:29> Family History Family History: Family History Father Cerebrovascular accident Hypertension Sibling AIDS Depression Endometriosis Heart disease Mother Arthritis <Jada Kapadia PA-C - Last Filed: 10/04/25 14:29> Social History Social History: Social History Smoking status: Never smoker Alcohol intake: never Substance use: never Substance use type: does not use Lack of Transportation: No Lack of Food: Never True Current Housing: I Have Housing Concerned About Future Housing: No Difficulty Paying Gas/Electric Bills: No Difficulty Paying for Meds: No Currently Unemployed: No Education: Trade/Vocational Certificate Difficulty w/ Childcare or Family Care: No Living arrangements: with family Spiritual care concerns: No <Jada Kapadia PA-C - Last Filed: 10/04/25 14:29> Course Vital Signs Vital signs: Vital Signs Temperature 97.8 F 09/25/25 12:02 Pulse Rate 107 H 09/25/25 12:02 Respiratory Rate 18 09/25/25 12:02 Blood Pressure 117/63 09/25/25 12:02 Pulse Oximetry 100 09/25/25 12:02 Oxygen Delivery Room Air 09/25/25 12:02 Temperature 97.1 F L 10/01/25 14:00 Pulse Rate 92 10/01/25 14:00 Respiratory Rate 16 10/01/25 14:00 Blood Pressure 108/69 10/01/25 14:00 Pulse Oximetry 99 10/01/25 14:00 Oxygen Delivery Room Air 10/01/25 09:15 <Jada Kapadia PA-C - Last Filed: 10/04/25 14:29> Vital Signs Temperature 97.8 F 09/25/25 12:02 Pulse Rate 107 H 09/25/25 12:02 Respiratory Rate 18 09/25/25 12:02 Blood Pressure 117/63 09/25/25 12:02 Pulse Oximetry 100 09/25/25 12:02 Oxygen Delivery Room Air 09/25/25 12:02 Temperature 97.1 F L 10/01/25 14:00 Pulse Rate 92 10/01/25 14:00 Respiratory Rate 16 10/01/25 14:00 Blood Pressure 108/69 10/01/25 14:00 Pulse Oximetry 99 10/01/25 14:00 Oxygen Delivery Room Air 10/01/25 09:15 <Justus Zhou MD - Last Filed: 10/05/25 07:56> MDM - SOB/Dyspnea MDM Narrative Medical decision making narrative: 59-year-old female presents emergency department by EMS for evaluation of worsening shortness of breath. Patient has had worsening shortness of breath including exertional shortness of breath. Leukocytosis 18.3 with no anemia and normal INR normal kidney function with elevated CRP. Chest x-ray showed no acute cardiopulmonary abnormality, CT of the abdomen was added to further evaluate because she was complaining of some abdominal pain. CT the abdomen did show a complex cystic mass of the LEs iliopsoas muscle with adjacent induration. UA is also concerning for infection. Patient was started on antibiotics and surgery was consulted. I did discuss the case with both General surgery and Nephrology. Patient was started on antibiotics emergency department. Patient was treated with the appropriate doses of fluid. Case discussed with hospitalist patient was accepted for admission. Patient family were updated the results of the workup. All questions concerns were addressed. <Justus Zhou MD - Last Filed: 10/05/25 07:56> Differential Diagnosis Differential diagnosis: Likely acute exacerbation of chronic obstructive airways disease, congestive heart failure, community acquired pneumonia, asthma with exacerbation, pulmonary embolism and other <Justus Zhou MD - Last Filed: 10/05/25 07:56> Lab Data Attestation: I reviewed the patient's lab results. <Justus Zhou MD - Last Filed: 10/05/25 07:56> Result diagrams: 10/01/25 04:55 10/01/25 04:55 <Jada Kapadia PA-C - Last Filed: 10/04/25 14:29> Labs: Lab Results 09/25/25 09/25/25 09/25/25 Range/Units 14:26 16:28 18:08 WBC 18.3 H (4.5-10.0) K/mm3 RBC 4.25 (4.2-5.4) M/mm3 Hgb 12.8 (12.0-15.0) g/dL Hct 39.7 (37.0-47.0) % MCV 93.4 (80-100) fl MCH 30.1 (26-34) pg MCHC 32.2 (32-36) g/dl RDW 13.9 (11.5-14.5) % Plt Count 277 D (150-375) k/mm3 MPV 8.9 (7.4-10.4) fl Immature Gran % (Auto) 1.3 H (0-0.5) % Neut % (Auto) 87.1 H (45.5-73.1) % Lymph % (Auto) 6.0 L (18.3-44.2) % Brooks % (Auto) 5.2 (2.6-8.5) % Eos % (Auto) 0.2 (0-4.4) % Baso % (Auto) 0.2 (0.2-1.2) % Lymph # (Auto) 1.09 (0.9-3.2) K/mm3 Brooks # (Auto) 0.9 H (0.1-0.6) K/mm3 Eos # (Auto) 0.0 (0-0.3) K/mm3 Baso # (Auto) 0.0 (0.0-0.1) K/mm3 Abs Immat Gran (auto) 0.24 H (0.00-0.031) K/mm3 Absolute Neuts (auto) 15.9 H (1.3-6.7) K/mm3 Absolute Nucleated RBC 0.000 (0.0-0.012) K/mm3 Nucleated RBC % 0.0 (0.0-0.2) % PT 16.2 H (11.1-14.7) Seconds INR 1.3 APTT 35.9 (22.3-36.8) Seconds Sodium 132 L (137-145) mmol/L Potassium 4.0 (3.4-5.0) mmol/L Chloride 99 (98-107) mmol/L Carbon Dioxide 25 (22-30) mmol/L Anion Gap 8 (4-12) mmol/L BUN 14 D (7-17) mg/dL Creatinine 0.72 (0.7-1.0) mg/dL Estim Creat Clear Calc Not Reportable Estimated GFR > 60 (59 - ) Glucose 109 (65-110) mg/dL Lactic Acid 1.0 (0.7-2.0) mmol/L Calcium 8.9 (8.4-10.2) mg/dL Total Bilirubin 1.4 H (0.2-1.3) mg/dL AST 21 (14-36) U/L ALT 20 (6-35) U/L Alkaline Phosphatase 101 (38-126) U/L C-Reactive Protein 30.3 H (<1.0) mg/dL NT-Pro-B Natriuret Pep (19.9-100) pg/mL Total Protein 7.5 (6.3-8.2) g/dL Albumin 3.7 (3.5-5.1) g/dL Lipase 32 (23-300) U/L Procalcitonin 0.2 ng/mL Urine Color Yellow (Yellow) Urine Appearance Clear (Clear) Urine pH 6.5 (5.0-9.0) Ur Specific [employer] > 1.045 H (1.001-1.035) Urine Protein 1+ H (Negative) mg/dL Urine Glucose (UA) Negative (Negative) mg/dL Urine Ketones 1+ H (Negative) mg/dL Ur Blood (Man) Non-hemolyzed trace H (Negative) Urine Nitrate Positive H (Negative) Urine Bilirubin Negative (Negative) Urine Urobilinogen 1.0 (<2.0) mg/dL Add Ur Microanalysis Reviewed Leukocyte Esterase Rfl Negative (Negative) LESLIE/UL Urine RBC 6-10 H (0-2) /hpf Urine WBC 11-20 H (0-3) /hpf Ur Squamous Epith Cells Few (Few) /hpf Urine Bacteria 4+ H /hpf Urine Casts 0-2 Influenza A (RT-PCR) Negative (Negative) Influenza B (RT-PCR) Negative (Negative) RSV (RT-PCR) Negative (Negative) SARS-CoV-2 RNA (RT-PCR) Negative (Negative) 09/26/25 09/26/25 Range/Units 04:46 10:46 WBC 12.9 H (4.5-10.0) K/mm3 RBC 3.57 L (4.2-5.4) M/mm3 Hgb 10.8 L (12.0-15.0) g/dL Hct 33.3 L (37.0-47.0) % MCV 93.3 (80-100) fl MCH 30.3 (26-34) pg MCHC 32.4 (32-36) g/dl RDW 13.7 (11.5-14.5) % Plt Count 227 (150-375) k/mm3 MPV 9.2 (7.4-10.4) fl Immature Gran % (Auto) 1.2 H (0-0.5) % Neut % (Auto) 87.3 H (45.5-73.1) % Lymph % (Auto) 5.4 L (18.3-44.2) % Brooks % (Auto) 5.4 (2.6-8.5) % Eos % (Auto) 0.5 (0-4.4) % Baso % (Auto) 0.2 (0.2-1.2) % Lymph # (Auto) 0.70 L (0.9-3.2) K/mm3 Brooks # (Auto) 0.7 H (0.1-0.6) K/mm3 Eos # (Auto) 0.1 (0-0.3) K/mm3 Baso # (Auto) 0.0 (0.0-0.1) K/mm3 Abs Immat Gran (auto) 0.16 H (0.00-0.031) K/mm3 Absolute Neuts (auto) 11.2 H (1.3-6.7) K/mm3 Absolute Nucleated RBC 0.000 (0.0-0.012) K/mm3 Nucleated RBC % 0.0 (0.0-0.2) % PT 17.1 H (11.1-14.7) Seconds INR 1.4 APTT 28.5 (22.3-36.8) Seconds Sodium 132 L (137-145) mmol/L Potassium 3.9 (3.4-5.0) mmol/L Chloride 103 (98-107) mmol/L Carbon Dioxide 24 (22-30) mmol/L Anion Gap 5 (4-12) mmol/L BUN 11 (7-17) mg/dL Creatinine 0.68 L (0.7-1.0) mg/dL Estim Creat Clear Calc Not Reportable Estimated GFR > 60 (59 - ) Glucose 107 (65-110) mg/dL Lactic Acid (0.7-2.0) mmol/L Calcium 8.2 L (8.4-10.2) mg/dL Total Bilirubin 1.2 (0.2-1.3) mg/dL AST 18 (14-36) U/L ALT 15 (6-35) U/L Alkaline Phosphatase 75 (38-126) U/L C-Reactive Protein (<1.0) mg/dL NT-Pro-B Natriuret Pep 126 H (19.9-100) pg/mL Total Protein 6.0 L (6.3-8.2) g/dL Albumin 2.9 L (3.5-5.1) g/dL Lipase (23-300) U/L Procalcitonin ng/mL Urine Color (Yellow) Urine Appearance (Clear) Urine pH (5.0-9.0) Ur Specific [employer] (1.001-1.035) Urine Protein (Negative) mg/dL Urine Glucose (UA) (Negative) mg/dL Urine Ketones (Negative) mg/dL Ur Blood (Man) (Negative) Urine Nitrate (Negative) Urine Bilirubin (Negative) Urine Urobilinogen (<2.0) mg/dL Add Ur Microanalysis Leukocyte Esterase Rfl (Negative) LESLIE/UL Urine RBC (0-2) /hpf Urine WBC (0-3) /hpf Ur Squamous Epith Cells (Few) /hpf Urine Bacteria /hpf Urine Casts Influenza A (RT-PCR) (Negative) Influenza B (RT-PCR) (Negative) RSV (RT-PCR) (Negative) SARS-CoV-2 RNA (RT-PCR) (Negative) <Jada Kapadia PA-C - Last Filed: 10/04/25 14:29> Lab Results 09/25/25 09/25/25 09/25/25 Range/Units 14:26 16:28 18:08 WBC 18.3 H (4.5-10.0) K/mm3 RBC 4.25 (4.2-5.4) M/mm3 Hgb 12.8 (12.0-15.0) g/dL Hct 39.7 (37.0-47.0) % MCV 93.4 (80-100) fl MCH 30.1 (26-34) pg MCHC 32.2 (32-36) g/dl RDW 13.9 (11.5-14.5) % Plt Count 277 D (150-375) k/mm3 MPV 8.9 (7.4-10.4) fl Immature Gran % (Auto) 1.3 H (0-0.5) % Neut % (Auto) 87.1 H (45.5-73.1) % Lymph % (Auto) 6.0 L (18.3-44.2) % Brooks % (Auto) 5.2 (2.6-8.5) % Eos % (Auto) 0.2 (0-4.4) % Baso % (Auto) 0.2 (0.2-1.2) % Lymph # (Auto) 1.09 (0.9-3.2) K/mm3 Brooks # (Auto) 0.9 H (0.1-0.6) K/mm3 Eos # (Auto) 0.0 (0-0.3) K/mm3 Baso # (Auto) 0.0 (0.0-0.1) K/mm3 Abs Immat Gran (auto) 0.24 H (0.00-0.031) K/mm3 Absolute Neuts (auto) 15.9 H (1.3-6.7) K/mm3 Absolute Nucleated RBC 0.000 (0.0-0.012) K/mm3 Nucleated RBC % 0.0 (0.0-0.2) % PT 16.2 H (11.1-14.7) Seconds INR 1.3 APTT 35.9 (22.3-36.8) Seconds Sodium 132 L (137-145) mmol/L Potassium 4.0 (3.4-5.0) mmol/L Chloride 99 (98-107) mmol/L Carbon Dioxide 25 (22-30) mmol/L Anion Gap 8 (4-12) mmol/L BUN 14 D (7-17) mg/dL Creatinine 0.72 (0.7-1.0) mg/dL Estim Creat Clear Calc Not Reportable Estimated GFR > 60 (59 - ) Glucose 109 (65-110) mg/dL Lactic Acid 1.0 (0.7-2.0) mmol/L Calcium 8.9 (8.4-10.2) mg/dL Total Bilirubin 1.4 H (0.2-1.3) mg/dL AST 21 (14-36) U/L ALT 20 (6-35) U/L Alkaline Phosphatase 101 (38-126) U/L C-Reactive Protein 30.3 H (<1.0) mg/dL NT-Pro-B Natriuret Pep (19.9-100) pg/mL Total Protein 7.5 (6.3-8.2) g/dL Albumin 3.7 (3.5-5.1) g/dL Lipase 32 (23-300) U/L Procalcitonin 0.2 ng/mL Urine Color Yellow (Yellow) Urine Appearance Clear (Clear) Urine pH 6.5 (5.0-9.0) Ur Specific [employer] > 1.045 H (1.001-1.035) Urine Protein 1+ H (Negative) mg/dL Urine Glucose (UA) Negative (Negative) mg/dL Urine Ketones 1+ H (Negative) mg/dL Ur Blood (Man) Non-hemolyzed trace H (Negative) Urine Nitrate Positive H (Negative) Urine Bilirubin Negative (Negative) Urine Urobilinogen 1.0 (<2.0) mg/dL Add Ur Microanalysis Reviewed Leukocyte Esterase Rfl Negative (Negative) LESLIE/UL Urine RBC 6-10 H (0-2) /hpf Urine WBC 11-20 H (0-3) /hpf Ur Squamous Epith Cells Few (Few) /hpf Urine Bacteria 4+ H /hpf Urine Casts 0-2 Influenza A (RT-PCR) Negative (Negative) Influenza B (RT-PCR) Negative (Negative) RSV (RT-PCR) Negative (Negative) SARS-CoV-2 RNA (RT-PCR) Negative (Negative) 09/26/25 09/26/25 Range/Units 04:46 10:46 WBC 12.9 H (4.5-10.0) K/mm3 RBC 3.57 L (4.2-5.4) M/mm3 Hgb 10.8 L (12.0-15.0) g/dL Hct 33.3 L (37.0-47.0) % MCV 93.3 (80-100) fl MCH 30.3 (26-34) pg MCHC 32.4 (32-36) g/dl RDW 13.7 (11.5-14.5) % Plt Count 227 (150-375) k/mm3 MPV 9.2 (7.4-10.4) fl Immature Gran % (Auto) 1.2 H (0-0.5) % Neut % (Auto) 87.3 H (45.5-73.1) % Lymph % (Auto) 5.4 L (18.3-44.2) % Brooks % (Auto) 5.4 (2.6-8.5) % Eos % (Auto) 0.5 (0-4.4) % Baso % (Auto) 0.2 (0.2-1.2) % Lymph # (Auto) 0.70 L (0.9-3.2) K/mm3 Brooks # (Auto) 0.7 H (0.1-0.6) K/mm3 Eos # (Auto) 0.1 (0-0.3) K/mm3 Baso # (Auto) 0.0 (0.0-0.1) K/mm3 Abs Immat Gran (auto) 0.16 H (0.00-0.031) K/mm3 Absolute Neuts (auto) 11.2 H (1.3-6.7) K/mm3 Absolute Nucleated RBC 0.000 (0.0-0.012) K/mm3 Nucleated RBC % 0.0 (0.0-0.2) % PT 17.1 H (11.1-14.7) Seconds INR 1.4 APTT 28.5 (22.3-36.8) Seconds Sodium 132 L (137-145) mmol/L Potassium 3.9 (3.4-5.0) mmol/L Chloride 103 (98-107) mmol/L Carbon Dioxide 24 (22-30) mmol/L Anion Gap 5 (4-12) mmol/L BUN 11 (7-17) mg/dL Creatinine 0.68 L (0.7-1.0) mg/dL Estim Creat Clear Calc Not Reportable Estimated GFR > 60 (59 - ) Glucose 107 (65-110) mg/dL Lactic Acid (0.7-2.0) mmol/L Calcium 8.2 L (8.4-10.2) mg/dL Total Bilirubin 1.2 (0.2-1.3) mg/dL AST 18 (14-36) U/L ALT 15 (6-35) U/L Alkaline Phosphatase 75 (38-126) U/L C-Reactive Protein (<1.0) mg/dL NT-Pro-B Natriuret Pep 126 H (19.9-100) pg/mL Total Protein 6.0 L (6.3-8.2) g/dL Albumin 2.9 L (3.5-5.1) g/dL Lipase (23-300) U/L Procalcitonin ng/mL Urine Color (Yellow) Urine Appearance (Clear) Urine pH (5.0-9.0) Ur Specific [employer] (1.001-1.035) Urine Protein (Negative) mg/dL Urine Glucose (UA) (Negative) mg/dL Urine Ketones (Negative) mg/dL Ur Blood (Man) (Negative) Urine Nitrate (Negative) Urine Bilirubin (Negative) Urine Urobilinogen (<2.0) mg/dL Add Ur Microanalysis Leukocyte Esterase Rfl (Negative) LESLIE/UL Urine RBC (0-2) /hpf Urine WBC (0-3) /hpf Ur Squamous Epith Cells (Few) /hpf Urine Bacteria /hpf Urine Casts Influenza A (RT-PCR) (Negative) Influenza B (RT-PCR) (Negative) RSV (RT-PCR) (Negative) SARS-CoV-2 RNA (RT-PCR) (Negative) <Justus Zhou MD - Last Filed: 10/05/25 07:56> Imaging Data Radiologist's impression: ITS Impressions Chest X-Ray 09/25/25 15:00 IMPRESSION: 1. No focal acute process seen. Chest CTA 09/25/25 15:25 IMPRESSION: Negative for pulmonary embolism. No acute process Abdomen/Pelvis CT 09/25/25 16:02 IMPRESSION: Complex cystic mass within the left iliopsoas muscle with adjacent induration measuring 9.4 x 12.1 x 7.3 cm suggestive of an abscess. All CT scans at this facility are performed using low dose modulation techniques as appropriate to perform exam including the following: automated exposure control; use of iterative reconstruction technique; adjustment of the mA and/or kV according to patient size (this includes techniques or standardized protocols for targeted exams where dose is matched to indication/reason for exam). <Jada Kapadia PA-C - Last Filed: 10/04/25 14:29> Critical Care Time Critical Care Time Critical Care Time: No <Jada Kapadia PA-C - Last Filed: 10/04/25 14:29> Discharge Plan Discharge Clinical Impression: Abscess UTI (urinary tract infection) Qualifiers: Urinary tract infection type: acute cystitis Hematuria presence: without hematuria Qualified Code(s): N30.00 - Acute cystitis without hematuria <Jada Kapadia PA-C - Last Filed: 10/04/25 14:29> Patient Disposition: Still a Patient <Jada Kapadia PA-C - Last Filed: 10/04/25 14:29> Condition: Stable <Jada Kapadia PA-C - Last Filed: 10/04/25 14:29>
--- NOTE | 2025-09-25 13:24 | ECG_ITS ---
Test Date: 2025-09-25 14:32:35 Measurements Intervals Adams Rate: 109 P: 58 UT: 111 QRS: -13 QRSD: 89 T: 66 QT: 308 QTc: 415 Interpretive Statements SINUS TACHYCARDIA WITH SHORT UT INTERVAL ABNORMAL RHYTHM ECG No previous ECG available for comparison Electronically Signed On 09-25-2025 14:41:54 AIRCRAFT LOG CLERK by Nestor Christianson M.D.
[2025-09-25 14:32] LABS: Hematocrit 39.7 % (37.0-47.0); Hemoglobin 12.8 g/dL (12.0-15.0); Immature Granulocyte Percent A 1.3 % (0-0.5); Lymphocytes Absolute Auto 1.09 K/mm3 (0.9-3.2); Mean Corpuscular HGB Conc 32.2 g/dl (32-36); Mean Corpuscular Hemoglobin 30.1 pg (26-34); Mean Corpuscular Volume 93.4 fl (80-100); Nucleated Red Blood Cells Absolute Auto 0.000 K/mm3 (0.0-0.012); Nucleated Red Blood Cells Perc 0.0 % (0.0-0.2); Platelet Count Result 277 k/mm3 (150-375); Red Blood Count 4.25 M/mm3 (4.2-5.4); White Blood Count 18.3 K/mm3 (4.5-10.0)
[2025-09-25 14:45] LABS: Alanine Aminotransferase 20 U/L (6-35); Albumin Level 3.7 g/dL (3.5-5.1); Alkaline Phosphatase 101 U/L (38-126); Anion Gap 8 mmol/L (4-12); Aspartate Amino Transferase 21 U/L (14-36); Bilirubin,Total 1.4 mg/dL (0.2-1.3); Blood Urea Nitrogen 14 mg/dL (7-17); Calcium 8.9 mg/dL (8.4-10.2); Carbon Dioxide 25 mmol/L (22-30); Chloride 99 mmol/L (98-107); Estimated Glomerular Filt Rate > 60; Glucose 109 mg/dL (65-110); Lipase 32 U/L (23-300); Potassium 4.0 mmol/L (3.4-5.0); Sodium 132 mmol/L (137-145); Total Protein 7.5 g/dL (6.3-8.2)
[2025-09-25 15:09] LABS: Influenza A QL RT-PCR Negative (Negative); Influenza B QL RT-PCR Negative (Negative); RSV RNA, RT-PCR Negative (Negative); SARS-CoV-2 RNA PCR Negative (Negative)
--- OUTSIDE RECORDS SUMMARY | 2025-09-25 15:26 | XMS_ITS | Encounter Summary ---
Author Organization [facility] Address [address] [place] [phone] Phone Care Team Providers Care Wrap Yarn Sorter Name Role Phone Jes Rhoades APRN, CNP Primary Care Provid er Encounter Details Date Type Department Care Team (Late st Contact Info) Description 06/14/2022 Telephone [facility] Oncology Services [address] [place] [phone] [place] MD [address] [place], [place] [id number] Social History Tobacco Use Types Packs/Day Years [...] work that was to be completed at [employer]. 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 Clinical Support [facility] Oncology Services [address] [place] [phone] 12/29/2025 11:00 AM ELECTRONIC PAGINATION SYSTEM OPERATOR Clinical Support [facility] Oncology Services [address] [place] [phone] 02/17/2026 11:00 AM CDT Clinical Support [facility] Oncology Services [address] [place] [phone] 04/28/2026 11:00 AM CDT Clinical Support [facility] Oncology Services [address] [place] [phone] 09/11/2026 1:20 PM CDT Office Visit [facility] Oncology Services [address] [place] [phone] Ann Hernandez, [facility] [address] [place] [address] 09/11/2026 2:00 PM CDT Clinical Support [facility] Oncology Services [address] [place] [phone] documented as of this encounter Visit Diagnoses Not on filedocumented in this encounter Care Teams Wrap Yarn Sorter Relationship Specialty Start Date End Date Jes Rhoades, SALES TRAINING REPRESENTATIVE, SERVER PROGRAMMER [phone] [place] [phone] PCP - General Advanced Practice Nurse 04/07/21 documented as of this encounter
--- OUTSIDE RECORDS SUMMARY | 2025-09-25 15:27 | XMS_ITS | Clinical Summary ---
Author Organization [facility] Address [address] [place] [address] Phone Care Team Providers Care Relief Charge Nurse Name Role Phone Jes Rhoades APRN, CNP Primary Care Provid er Allergies No known active allergies Medications spironolactone (ALDACTONE) 50 MG Tablet Take 50 mg by mouth. 04/01/2021 Active aspirin 81 MG Chewable Tablet Take 1 Tablet by mouth. Active Multiple Vitamins-Minera ls (KP Vision Formula) Tablet daily. Acti ve ergocalciferol (VITAMIN D) 15126 UNIT Capsule TAKE 1 CAPSULE BY MOUTH 1 TIME A WEEK 05/11/2021 Active Turmeric (QC TUMERIC COMPLEX PO) Take by mouth. Active oxybutynin (DITROPAN) 5 MG Tablet Take 5 mg by mouth daily. 09/04/2023 Active Active Problems Problem Noted Date Diagnosed Date Elevated LFTs 02/21/2022 Hereditary hemochromatosis 05/06/2021 Hypertension 05/06/2021 Encounters Date Type Department Care Team Description 09/12/2025 2:00 PM CDT [facility] [address] [place] [phone] Ann Hernandez Sol, PAC Hereditary hemochromatosis (Primary Dx) Discharge Disposition: Discharged to home or Selfcare 09/12/2025 1:20 PM CDT [facility] [address] [place] [phone] Ann Hernandez Sol, PAC Hereditary hemochromatosis (Primary Dx) Discharge Disposition: Discharged to home or Selfcare 09/12/2025 Travel 09/11/2025 Results Follow-Up [facility] Oncology Services [address] [place] [address] Ann Hernandez April, PAC COMPLETE BLOOD COUNT [...] st Contact Info) Description 11/12/2025 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 [facility] Oncology Services [address] [place] [address] 12/29/2025 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 [facility] Oncology Services [address] [place] [address] 02/17/2026 11:00 AM CDT Clinical Support [facility] Oncology Services [address] [place] [address] 04/28/2026 11:00 AM CDT Clinical Support [facility] Oncology Services [address] [place] [phone] 09/11/2026 1:20 PM CDT Office Visit [facility] Oncology Services [address] [place] [address] Ann Hernandez, PAC [address] [place] [address] 09/11/2026 2:00 PM CDT Clinical Support [facility] Oncology Services [address] [place] [phone] Health Maintenance Due Date Last Done Comments [...] Results * IRON,TRANSFERN,CALC.TIBC,%SAT (09/10/2025 12:00 AM CDT) [facility] PAC CHEMISTRY ORDERABLES Monica l Result Performing Organization Address City/[facility] Co de Phone Number SCAN * FERRITIN (09/10/2025 12:00 AM CDT) [facility] PAC CHEMISTRY ORDERABLES Monica l Result SCAN * CMP (COMPREHENSIVE METABOLIC PANEL) (09/10/2025 12:00 AM CDT) [facility] PAC CHEMISTRY ORDERABLES Monica l Result SCAN * COMPLETE BLOOD COUNT (CBC) WITH DIFF (09/10/2025 12:00 AM CDT) Ann Sol Hernandez PAC HEMATOLOGY ORDERABLES Fin al Result SCAN from Last 3 Months Insurance Care Teams Relief Charge Nurse Relationship Specialty Start Date End Date Jes Rhoades APRN, INTERPERSONAL COMMUNICATIONS PROFESSOR [phone] [phone] PCP - General Advanced Practice Nurse 04/07/21
--- OUTSIDE RECORDS SUMMARY | 2025-09-25 15:27 | XMS_ITS | Clinical Summary ---
Author Organization [facility] Address [facility] [place] [address] Care Team Providers Care Electroplater Automatic Name Role Phone Jes Rhoades NP Primary Care Provider [phone] Allergies No known active allergies Medications aspirin 81 MG chewable tablet Chew 1 tablet (81 mg total) by mouth daily. Active nystatin-triamci nolone cream 06/23/2020 Active Cholecalciferol 1.25 MG (01899 UT) Tab Take 1 tablet by mouth [...] mouth daily. 90 tablet 1 07/11/2025 Active Moringa Oleifera (MORINGA OR) Active Active Problems Problem Noted Date Diagnosed Date Overactive bladder 05/28/2024 Overview (05/28/2024): Is taking Oxybutin 5mg daily ordered by her institutional custodian. Has been having increase urination. No hx of diabetes. Assessment & Plan (06/03/2025 8:35 AM CDT): Chronic condition, controlled. No changes needed at this time. Assessment & Plan (12/02/2024 8:45 AM ENGINEERING LABORATORY TECHNICIAN): Pt encouraged to work on Kegel exercises and her institutional custodian informed pt she can increase her oxybutin dose if she wishes to 10mg. Assessment & Plan (05/28/2024 10:03 AM CDT): Pt encouraged to work on Kegel exercises and her institutional custodian informed pt she can increase her oxybutin [...] loss. Assessment & Plan (12/02/2024 8:44 AM ENGINEERING LABORATORY TECHNICIAN): BP stable. No med changes needed at [...] loss. Assessment & Plan (12/02/2024 8:43 AM ENGINEERING LABORATORY TECHNICIAN): Encourage working on diet lifestyle medications to [...] CPAP. Assessment & Plan (12/02/2024 8:49 AM ENGINEERING LABORATORY TECHNICIAN): Resume compliance with use of CPAP. Assessment & Plan (05/28/2024 9:39 AM CDT): Resume compliance with use of CPAP. Vitamin D deficiency 06/24/2020 Overview (06/03/2025): Hx of vitmain D deficiency. On replacement. Assessment & Plan (06/03/2025 8:35 AM CDT): Resume Vitamin D supplementation. Will recheck level. Assessment & Plan (12/02/2024 8:46 AM ENGINEERING LABORATORY TECHNICIAN): Resume Vitamin D supplementation. Hereditary hemochromatosis 04/10/2018 Overview (05/28/2024): Hx of hereditary hemochromatosis.Follows with for her management of her hemochromatosis. Assessment & Plan (06/03/2025 8:40 AM CDT): Chronic condition. Continue to follow with Dr. Hernandez for management of her hemochromatosis Assessment & Plan (12/02/2024 8:44 AM ENGINEERING LABORATORY TECHNICIAN): Continue to follow with Dr. Bell for management of her hemochromatosis. Assessment & Plan (05/28/2024 9:39 AM CDT): Continue to follow with Dr. Bell for management of her hemochromatosis. Encounters Date Type Department Care Team Description 09/25/[address] [place] [address] Jes Rhoades NP Problem 09/22/2025 9:00 AM ENGINEERING LABORATORY TECHNICIAN Office Visit [place] [address] [place] [address] Jes Rhoades NP Weight Problem (Patient presents with c/o unexplained weight loss, fatigue, feeling flu. Seen at urgent care last Monday and Dx with bronchitis given prednisone and Benzonatate. ) 09/22/2025 Travel 09/17/2025 Scan HEALTH INFO SRVCS Scanned, [facility] Image (SCAN) 09/12/2025 Scan MG HEALTH INFO SRVCS Scanned, Doc [facility] 07/11/2025 Orders Only [place] [address] [place] [address] Noris Torre MA from Last 3 Months Immunizations Immunization Administration Dates Next Due Fluzone (IIV3, Trivalent, 0. 5 ML Prefilled Syringe) 09/22/2025 Fluzone 6 Months+ Quad (0.5 mL Prefilled [...] Sign Reading Time Taken Comments Blood Pressure 118/62 09/22/2025 8:54 AM ENGINEERING LABORATORY TECHNICIAN Pulse 76 09/22/2025 8:54 AM ENGINEERING LABORATORY TECHNICIAN Temperature 36.2 C (97.1 F) 09/22/2025 8:54 AM ENGINEERING LABORATORY TECHNICIAN Respiratory Rate 18 09/22/2025 8:54 AM ENGINEERING LABORATORY TECHNICIAN Oxygen Saturation 97% 09/22/2025 8:54 AM ENGINEERING LABORATORY TECHNICIAN Inhaled Oxygen Concentration - - Weight 105.7 kg (233 lb) 09/22/2025 8:54 AM ENGINEERING LABORATORY TECHNICIAN Height 149.9 cm (4' 11) 09/22/2025 8:54 AM ENGINEERING LABORATORY TECHNICIAN Body Mass Index 47.06 09/22/2025 8:54 AM ENGINEERING LABORATORY TECHNICIAN Plan of Treatment Upcoming Encounters Date Type Department Care Team (Late st Contact Info) Description 12/01/2025 9:20 AM ENGINEERING LABORATORY TECHNICIAN Office Visit [facility] Family Medicine - [place] [address] [facility] [address] [place] [address] Jes Rhoades, MALIKA [address] [place] [id number] Health Maintenance Due Date Last Done Comments Pneumococcal Vaccine: 50+ Years (1 of 1 - PCV) 2013 Zoster Vaccines (1 of 2) 2013 RSV Immunization or 60+ Years (1 - Risk 60-74 years 1-dose series) 2023 COVID-19 Vaccine ( - season) 2025 03/10/2022, 04/26/2021 Mammogram Screening 11/30/2025 11/30/2024, 09/22/2023, 09/12/2022, Additional history exists Annual Physical 06/03/2026 06/03/2025, 05/13, 05/09/2023, Additional history exists Colorectal Cancer Screening Colonoscopy (10 Years) 11/02/2026 11/01/2021 Postponed from 11/01/2026 (Awaiting Documentation) DTaP, Tdap and Td Vaccines (2 - Td or Tdap) 05/03/2031 05/03/2021 Hepatitis C Completed 11/03/2021 PHQ-2 (Physician [place]) Completed 12/02/2024 Influenza Adult Completed 09/22/2025, 10/14, 11/04/2022, Additional history exists Hepatitis A Vaccines Aged Out No long [...] Procedure Name Priority Date/Time Associated Diagnosis Comments IMAGE GENERIC 09/17/2025 MAMMOGRAM GENERIC (SCAN ORDER) 11/30/2024 HEPATITIS C ANTIBODY Routine 11/03/2021 7:47 AM ENGINEERING LABORATORY TECHNICIAN Need for hepatitis C screening test COLONOSCOPY GENERIC (SCAN ORDER) 11/01/2021 from Last 3 Months or Most Recently Relevant to Health Maintenance Results * IMAGE GENERIC (09/17/2025) Anatomical Region Laterality Modality Other 09/17/2025 us Doc [facility] Scanned SCANNING Final Resu lt * MAMMOGRAM GENERIC (SCAN ORDER) (11/30/2024) Anatomical Region Laterality Modality Other 11/30/2024 us [facility] Scanned SCANNING Final Resu lt * HEPATITIS C ANTIBODY (11/03/2021 7:47 AM ENGINEERING LABORATORY TECHNICIAN) [facility] HEPATITIS C AB <0.1 0.0 - 0.9 s/co ratio [facility] 1 Comment: Negative: < 0.8 Indeterminate: 0.8 - 0.9 Positive: > 0.9 The CDC recommends that a positive HCV antibody result be followed up with a HCV Nucleic Acid Amplification test (108933). 11/03/2021 7:47 AM ENGINEERING LABORATORY TECHNICIAN 11/03/2021 Narrative [facility] - 11/04/2021 8:07 AM ENGINEERING LABORATORY TECHNICIAN Performed at: 01 - [facility] [id number] Oceanographer Assistant: Darius Regan PhD, Phone: [phone] us Jes Rhoades [facility]OR[facility] Final Res ult [facility] [address] [place] [address] [facility] 1 * COLONOSCOPY GENERIC (11/01/2021) 11/01/2021 Narrative 11/01/2021 Ordered by an unspecified provider. us Documents Scanned SCANNING Final Result from Last 3 Months or Most Recently Relevant to Health Maintenance Insurance [facility] Care Teams Electroplater Automatic Relationship Specialty Start Date End Date Jes Rhoades NP [address] [address] PCP - General NURSE PRACTITIONER 06/18/20
--- OUTSIDE RECORDS SUMMARY | 2025-09-25 15:27 | XMS_ITS | Clinical Summary ---
Author Organization [facility] al Address [address] [place] [address] Care Team Providers Care Brine Maker Name Role Phone No, Physician Primary Care Provider [phone] Allergies No known active allergies Medications aspirin 81 mg tablet daily. Active calcium carbonate-vitam in D3 (CALCIUM 500 + D) 1,250mg (500mg elemental) - 200 units per tablet daily. Active multivitamin-mi c-rvgx-NR-vit K (MULTI FOR HER) 18 mg iron-600 mcg-40 mcg capsule daily. Active nystatin cream As directed Act manuel A-C-E-zinc ox-selen AA-copper (VISION FORMULA) 1,000 unit-60 mg-30 unit tablet daily. Active cholecalciferol (VITAMIN D-3) 2,000 unit tablet 00877 units twice a week Active ascorbic acid [...] on file Legal Sex Female 7:36 AM SHORT FILLER BUNCH MACHINE OPERATOR Gender Identity Not on file Sexual Orientation Not on file Last Filed Vital Signs Vital Sign Reading Time Taken Comments Blood Pressure 128/81 12/28/2020 9:27 AM SHORT FILLER BUNCH MACHINE OPERATOR Pulse 99 12/28/2020 9:27 AM SHORT FILLER BUNCH MACHINE OPERATOR Temperature 36.7 C (98 F) 12/28/2020 9:27 AM SHORT FILLER BUNCH MACHINE OPERATOR Respiratory Rate 20 12/28/2020 9:27 AM SHORT FILLER BUNCH MACHINE OPERATOR Oxygen Saturation 99% 12/28/2020 9:27 AM SHORT FILLER BUNCH MACHINE OPERATOR Inhaled Oxygen Concentration - - Weight 118.3 kg (260 lb 12.9 oz) 12/28/2020 9:27 AM SHORT FILLER BUNCH MACHINE OPERATOR Height 149.5 cm (4' 10.86) 12/28/2018 9:[address] Body Mass Index 52.93 12/28/2018 9:00 AM SHORT FILLER BUNCH MACHINE OPERATOR Plan of Treatment Not on file Insurance [facility] [employer] ANTHEM ACCESS ANTHEM ACCESS CHOICE Member Subscriber Plan / Payer (Ef fective 2018-Present) Name:Jody Mayo Relation to Subscriber:Self Name:JODY MAYO Payer ID:[id number] (NAIC) Type:[employer] Address: [phone] [employer] Care Teams Brine Maker Relationship Specialty Start Date End Date No, Physician PCP - General 12/31/20
--- OUTSIDE RECORDS SUMMARY | 2025-09-25 15:27 | XMS_ITS | Encounter Summary ---
Author Organization [facility] Address [address] [place] [address] Phone Care Team Providers Care Drawing In Machine Tender Name Role Phone Jes Rhoades APRN, BEKAH Primary Care Provid er Encounter Details Date Type Department Care Team (Late Contact Info) Description 09/11/2025 Results Follow-Up [facility] [address] [place] [phone] Ann Hernandez Sol, PAC [address] [place] [address] COMPLETE BLOOD COUNT (CBC) WITH DIFF, CMP [...] st Contact Info) Description 11/12/2025 11:00 AM PRICING CLERK Clinical Support [facility] [address] [place] [phone] 12/29/2025 11:00 AM PRICING CLERK Clinical Support [facility] [address] [place] [address] 02/17/2026 11:00 AM CDT Clinical Support [facility] [address] [place] [address] 04/28/2026 11:00 AM CDT Clinical Support [facility] [address] [place] [address] 09/11/2026 1:20 PM CDT Office Visit [facility] [address] [place] [address] Ann Hernandez, [facility] [address] [place] [address] 09/11/2026 2:00 PM CDT Clinical Support [facility] [address] [place] [address] documented as of this encounter Visit Diagnoses Not on filedocumented in this encounter Care Teams Drawing In Machine Tender Relationship Specialty Start Date End Date Jes Rhoades, STOCK WETTER, LINE MAINTAINER SECTION [address] [place] [address] PCP - General Advanced Practice Nurse 04/07/21 documented as of this encounter
--- OUTSIDE RECORDS SUMMARY | 2025-09-25 15:27 | XMS_ITS | Encounter Summary ---
Author Organization [facility] Address [address] [place] [address] Care Team Providers Care Marine Equipment Preservation Inspector Name Role Phone Jes Rhoades FAUCET POLISHER Primary Care Provider [phone] Reason for Visit * Reason Comments Image (SCAN) Encounter Details Date Type Department Care Team (Latest Contact Info) Description 09/17/2025 Scan HEALTH INFO SRVCS Scanned, Doc Med Group Image (SCAN) Social History Tobacco Use Types Packs/Day Years [...] st Contact Info) Description 12/01/2025 9:20 AM DNA ANALYST Office Visit [facility] Family [facility] [address] [facility] [address] [place], [place] [phone] Jes Rhoades, FAUCET POLISHER [address] [place], [place] [phone] documented as of this encounter Procedures Procedure Name Priority Date/Time Associated Diagnosis Comments IMAGE GENERIC 09/17/2025 documented in this encounter Results * IMAGE GENERIC (09/17/2025) Anatomical Region Laterality Modality Other 09/17/2025 us [facility] Scanned SCANNING Final Resu lt documented in this encounter Visit Diagnoses Not on filedocumented in this encounter Additional Health Concerns Assessment Noted Time PHQ-9 Depression Total Score: 0 11/02/20 21 12:59 PM DNA ANALYST documented as of this encounter Care Teams Marine Equipment Preservation Inspector Relationship Specialty Start Date End Date Jes Rhoades NP [address] [place] [address] [place] [address] PCP - General NURSE PRACTITIONER 06/18/20 documented as of this encounter
--- OUTSIDE RECORDS SUMMARY | 2025-09-25 15:27 | XMS_ITS | Encounter Summary ---
Author Organization [facility] Address [facility] [place] [address] Care Team Providers Care Laundry Tub Maker Name Role Phone Jes Rhoades NP Primary Care Provider [phone] Encounter Details Date Type Department Care Team (Late st Contact Info) Description 05/06/2022 myRete Message Enc [facility] Family Medicine [facility] [address] [phone] Jes Rhoades, MALIKA [address] [address] [place] results Social History Tobacco Use Types [...] st Contact Info) Description 12/01/2025 9:20 AM WASTE MINIMIZATION TECHNICIAN Office Visit [facility] Family Medicine - [place] [address] [facility] [address] [place] [address] Jes Rhoades NP [address] [place] [address] documented as of this encounter Visit Diagnoses Not on filedocumented in this encounter Additional Health Concerns Infection Onset Date Last Indicated Resolved Time COVID-19 Rule Out 08/31/2023 08/31/2023 08/31/2023 12:05 PM CDT Assessment Noted Time PHQ-9 Depression Total Score: 0 11/02/20 21 12:59 PM WASTE MINIMIZATION TECHNICIAN documented as of this encounter Care Teams Laundry Tub Maker Relationship Specialty Start Date End Date Jes Rhoades NP [address] [place] [address] PCP - General NURSE PRACTITIONER 06/18/20 documented as of this encounter
--- OUTSIDE RECORDS SUMMARY | 2025-09-25 15:27 | XMS_ITS | Encounter Summary ---
Author Organization [facility] Address Replaced by [facility] [place] [address] Care Team Providers Care Electrotherapist Name Role Phone Jes Rhoades ADHESION TESTER Primary Care Provider [phone] Reason for Visit * Reason Onset Date Comments Problem 09/25/2025 Encounter Details Date Type Department Care Team ([facility] Contact Info) Description 09/25/2025 Telephone [facility] Family Medicine [facility] [address] [facility] [address] [place] [phone] Jes Rhoades, MALIKA [address] [address] Problem Social History Tobacco Use Types Packs/Day Years [...] on file documented as of this encounter Progress Notes * Aida Scott LPN - 09/25/2025 2:23 PM CST Patient is aware to have the labs done and call us back Monday if she has not heard from us. She did not want nausea med at this time. ANICAL SHOVEL OPERATOR * Aida Scott LPN - 09/25/2025 11:02 AM CST Message left with patient to call back. Labs ordered. ANICAL SHOVEL OPERATOR * Jes Rhoades NP - 09/25/2025 10:43 AM CST Meant to send back to Aida. ANICAL SHOVEL OPERATOR * Jes Rhoades NP - 09/25/2025 10:42 AM CST Please check CBC, CMP, TSH, and Mag level. Can provider her a script of horacio. Is she having abd pain? Any fever? ANICAL SHOVEL OPERATOR * Aida Scott LPN - 09/25/2025 10:25 AM CST Jody called and is still struggling. She says that this morning she was sick to her stomach and vomited her breakfast. She then had diarrhea and has since been very thirsty. She is questioning doingsome lab work. She mentioned magnesium level and throid levels specifically. Would there be anything you want to check or suggest for her? ANICAL SHOVEL OPERATOR documented in this encounter Plan of Treatment Upcoming Encounters Date Type Department Care Team (Late st Contact Info) Description 12/01/2025 9:20 AM MECHANICAL SHOVEL OPERATOR Office Visit [facility] Medical [facility] Family Medicine - [place] [address] [facility] [address] [place], [place] [phone] Jes Rhoades NP [address] [place] [address] [place], [place] [phone] Scheduled Orders Name Type Priority Associated Diagnoses Orde r Schedule CBC W/DIFF Lab Routine Viral bronchitis Vomiting and diarrhea Expected: 09/25/2025, Expires: 09/25/2026 COMPREHENSIVE METABOLIC PANEL Lab Routine Viral bronchitis Vomiting and diarrhea Expected: 09/25/2025, Expires: 09/25/2026 TSH W/REFLEX Lab Routine Viral bronchitis Vomiting and diarrhea Expected: 09/25/2025, Expires: 09/25/2026 MAGNESIUM Lab Routine Viral bronchitis Vomiting and diarrhea Expected: 09/25/2025, Expires: 09/25/2026 documented as of this encounter Visit Diagnoses Diagnosis Viral bronchitis- Primary Acute bronchitis Vomiting and diarrhea Vomiting alone documented in this encounter Additional Health Concerns Assessment Noted Time PHQ-9 Depression Total Score: 0 11/02/20 21 12:59 PM MECHANICAL SHOVEL OPERATOR documented as of this encounter Care Teams Electrotherapist Relationship Specialty Start Date End Date Jes Rhoades NP [address] [place] [address] PCP - General NURSE PRACTITIONER 06/18/20 documented as of this encounter
--- OUTSIDE RECORDS SUMMARY | 2025-09-25 15:27 | XMS_ITS | Encounter Summary ---
Author Organization [facility] Address [address] [place] [address] Care Team Providers Care Relief Mate Name Role Phone Jes Rhoades NP Primary Care Provider [phone] Encounter Details Date Type Department Care Team (Late Contact Info) Description 05/20/2023 MyChart Message Enc [facility] Family Medicine [facility] [address] [phone] Jes Rhoades, MALIKA [address] [place] [phone] Question regarding CBC W/DIFF AUTOMATED Social History [...] Department Care Team (Late Contact Info) Description 12/01/2025 9:20 AM MEDICAL BILLING CLERK Office Visit [facility] [address] [facility] [address] [place] [phone] Jes Rhoades NP [address] [place] [address] documented as of this encounter Visit Diagnoses Not on filedocumented in this encounter Additional Health Concerns Infection Onset Date Last Indicated Resolved Time COVID-19 Rule Out 08/31/2023 08/31/2023 08/31/2023 12:05 PM CDT Assessment Noted Time PHQ-9 Depression Total Score: 0 11/02/20 21 12:59 PM MEDICAL BILLING CLERK documented as of this encounter Care Teams Relief Mate Relationship Specialty Start Date End Date Jes Rhoades NP [address] [place] [address] PCP - General NURSE PRACTITIONER 06/18/20 documented as of this encounter
[2025-09-25] MEDS: ONDANSETRON INJ 4 MG/2 ML VIAL IV PUSH ×2 (15:37→21:19)
--- NOTE | 2025-09-25 15:56 | PC.NURSE ---
patient ambulated to the bathroom with a steady gait to provide a urine sample
[2025-09-25] MEDS: ACETAMINOPHEN 500 MG TABLET 1000 MG PO (16:44)
[2025-09-25 16:55] LABS: Add Urine Microscopic? YES; Appearance Urine Clear (Clear); Glucose Urine UA Negative (Negative); Leukocyte Esterase Ur Negative LEU/UL (Negative); Need Manual Microscopic Reviewed; Nitrate Urine Positive (Negative); Non Pathogenic Casts 0-2; Specific Grav Ur > 1.045 (1.001-1.035)
--- NOTE | 2025-09-25 17:50 | PM.IMHP ---
H&P: HPI History of Present Illness Date/Time: 09/25/25 17:50 Chief Complaint: Shortness of Breath Narrative: 59 y/o F with PMH of hemochromatosis and hypertension presents here with shortness of breath. The patient presents here from work via EMS on 09/25 for further evaluation of shortness of breath. She reports this has been ongoing for the past 3 months. She reports the shortness of breath has been exertional and she first noticed it when she would walk across the parking lot at work. Has worsened in the last 1-2 weeks. Now also having poor appetite/poor PO intake, productive cough yielding white/clear, chills, nausea, and vomiting. Denies congestion, rhinorrhea, or fever. Recently has also developed left lower flank pain. Patient did not initially think much of her symptoms and attributed the pain as secondary to her nausea and vomiting. Noted to be febrile today, maxT 102.5F. Denies any dysuria, urinary frequency, no changes in appearance, or odor. Initial VS at presentation: 97.8? F, HR 107, R 18, 117/63, and 100% on RA. ED workup showed: WBC 18.3, no anemia, INR 1.3, sodium 132, creatinine 0.72 and GFR >60, CRP 30.3, procalcitonin 0.2, lactic 1.0, and UA concerning for UTI. Viral PCR negative. CXR showed no focal acute process. Chest CTA negative for PE or acute process. CT of the abdomen/pelvis showed a complex cystic mass within the left iliopsoas muscle with adjacent induration measuring 9.4 x 12.1 x 7.3 cm suggestive of an abscess. Review of Systems Review of Systems: All systems reviewed & are unremarkable except as noted in HPI and below [facility] Past Medical History Medical History (Updated 09/25/25 @ 20:56 by Kathleen Villavicencio APRN) History of postoperative nausea and vomiting Kidney stones History of colon polyps GERD (gastroesophageal reflux disease) Migraine Hemochromatosis Hypertension Surgical History Surgical History History of elbow surgery History of hysterectomy (1999) History of cholecystectomy Family History Family History (Updated 09/25/25 @ 19:38 by Maureen Ricketts RN) Father Cerebrovascular accident Hypertension Sibling AIDS Depression Endometriosis Heart disease Mother Arthritis Social History Social History Smoking status: Never smoker Alcohol intake: never Substance use: never Substance use type: does not use Lack of Transportation: No Lack of Food: Never True Current Housing: I Have Housing Concerned About Future Housing: No Difficulty Paying Gas/Electric Bills: No Difficulty Paying for Meds: No Currently Unemployed: No Education: Trade/Vocational Certificate Difficulty w/ Childcare or Family Care: No Living arrangements: with family Spiritual care concerns: No Meds Home Medications and Allergies Home Medications ?Medication ?Instructions ?Recorded ?Confirmed ?Type aspirin 81 mg tablet 81 mg PO DAILY 10/22/21 09/25/25 History ergocalciferol (vitamin D2) 1,250 1,250 mcg PO WEEKLY 10/22/21 09/25/25 History mcg (50,000 unit) capsule spironolactone 50 mg tablet 50 mg PO DAILY 10/22/21 09/25/25 History turmeric 100 mg-rory 150 1 cap PO DAILY 10/22/21 09/25/25 History mg-olive 50 mg-oreg 150 mg-capryl capsule oxybutynin chloride 5 mg 5 mg PO DAILY 09/17/25 09/25/25 History tablet,extended release 24 hr Allergies Allergy/AdvReac Type Severity Reaction Status Date / Time No Known Allergies Allergy Verified 09/25/25 19:02 Vital Signs Vital Signs - 24 hr 09/25/25 12:02 09/25/25 14:22 09/25/25 14:23 Temperature 97.8 F Pulse Rate 107 H 111 H Respiratory Rate 18 15 Blood Pressure 117/63 107/89 Pulse Oximetry 100 99 100 Oxygen Delivery Room Air Room Air Room Air Exam Const: General: comfortable and no acute distress Other: , female, nontoxic appearance, obese body habitus HENMT: Face/Nose/Sinus: Normal nares present Mouth: Yes moist mucous membranes Eyes: General: appearance normal, both eyes and all related structures Sclera: sclerae normal Pupils: Equal, round and reactive pupils present EOM: EOMs intact bilaterally Resp: Effort & Inspection: normal respiratory effort Auscultation: clear to auscultation bilaterally Cardio: Rate: regular rate Rhythm: regular rhythm Other: S1-S2 present without murmur, rub, ectopy GI: Other: Abdomen soft, nondistended, nontender. Normoactive bowel sounds in all quadrants. : Other: Mild left flank tenderness Skin: General skin exam: normal color and no rashes or lesions noted Wounds: no wounds Neuro: Speech: normal speech Motor exam (neuro): 5/5 motor strength present throughout Sensory Exam: normal sensation Other: A&O x4 Extrem: General: normal to inspection Psych: Mental Status: mental status grossly normal Affect: normal affect Other: Good insight and judgment, pleasant H&P: Results Labs Labs: Short CBC 09/25/25 Range/Units 14:26 WBC 18.3 H (4.5-10.0) K/mm3 Hgb 12.8 (12.0-15.0) g/dL Hct 39.7 (37.0-47.0) % Plt Count 277 D (150-375) k/mm3 BMP 09/25/25 14:26 Sodium 132 L Potassium 4.0 Chloride 99 Carbon Dioxide 25 BUN 14 D Creatinine 0.72 Glucose 109 Calcium 8.9 Liver Function 09/25/25 Range/Units 14:26 Total Bilirubin 1.4 H (0.2-1.3) mg/dL AST 21 (14-36) U/L ALT 20 (6-35) U/L Alkaline Phosphatase 101 (38-126) U/L Albumin 3.7 (3.5-5.1) g/dL Urine 09/25/25 Range/Units 16:28 Urine Color Yellow (Yellow) Urine Appearance Clear (Clear) Urine pH 6.5 (5.0-9.0) Ur Specific [place] > 1.045 H (1.001-1.035) Urine Protein 1+ H (Negative) mg/dL Urine Glucose (UA) Negative (Negative) mg/dL Assessment and Plan Assessment and plan (1) SIRS (systemic inflammatory response syndrome): Code(s): R65.10 - Systemic inflammatory response syndrome (SIRS) of non-infectious origin without acute organ dysfunction Status: Acute Assessment and Plan: Patient met SIRS criteria due to heart rate (107-111) and WBC (18.3). Initially here for shortness of breath with associated productive cough producing clear mucus. Has previously underwent workup that were benign for same symptoms. CXR showed no focal process. CT of the abdomen/pelvis (09/25) however was concerning for a complex cystic mass within the left iliopsoas muscle with adjacent induration measuring 9.4 x 12.1 x 7.3 cm suggestive of an abscess. UA also consistent with UTI, however did have a few epithelial cells. Lactic and procalcitonin pending. General surgery and Urology have been consulted. Reviewed vital signs from the ED, no hemodynamic instability. Blood cultures obtained on 09/25. Review previous micro, patient grew pansensitive E coli in 2023. Has been given a 2L bolus. - CT of the abdomen/pelvis from 09/25 concerning for a complex cystic mass with abscess measuring 9.4 x 12.1 x 7.3 cm for which General Surgery and Urology has been consulted. Made NPO at midnight and home p.o. medications held in case of need for procedure/surgery tomorrow for abscess. - lactic and procalcitonin pending - IV fluids: 2L bolus -> 75 mL/hr x1L - trend WBC - blood cultures and urine culture obtained on 09/25, follow - supportive care and analgesics p.r.n. (2) Abscess: Code(s): L02.91 - Cutaneous abscess, unspecified Status: Acute Assessment and Plan: - see above (3) UTI (urinary tract infection): Qualifiers: Hematuria presence: without hematuria Urinary tract infection type: acute cystitis Qualified Code(s): N30.00 - Acute cystitis without hematuria Code(s): N39.0 - Urinary tract infection, site not specified Status: Acute Assessment and Plan: - see above (4) Shortness of breath: Code(s): R06.02 - Shortness of breath Status: Acute Assessment and Plan: Patient initially presented here for shortness of breath with productive cough yielding clear mucus. No history of smoking. CXR showed no acute process. Viral PCR negative on 09/25. Per chart review she was recently evaluated for the same symptoms on 09/17/2025, workup benign at that time, and symptoms were attributed to a virus/bronchitis for which she was started on a short course of prednisone and Tessalon Perles. EKG reviewed, sinus tachycardia with short OR interval. She reports symptoms have been ongoing for months. No current concern for pneumonia. Monitor O2 sats. Supportive care. Check BNP. (5) Hypertension: Qualifiers: Hypertension type: primary hypertension Qualified Code(s): I10 - Essential (primary) hypertension Code(s): I10 - Essential (primary) hypertension Status: Acute Assessment and Plan: - chronic, currently 138/60, stable. - hold spironolactone, add may require surgery or procedure tomorrow. Hydralazine p.r.n. in interim. Resume when appropriate. - monitor Plan Diet: Regular, NPO midnight GI Prophylaxis: N/a DVT Prophylaxis: SCDs IV fluids: 2L bolus -> 75 mL/hr x1L Lines/Tubes: Peripheral IV Code Status: Full code Quality VTE Prophylaxis VTE prophylaxis: mechanical ordered Hospitalist MIPS Advance Care Plan I have confirmed that the patient's Advanced Care Plan is present, code status is documented, or surrogate decision maker is listed in patient medical record.: Yes Medication Reconciliation I have utilized all available resources to obtain, update and review the patients current medications (includes all prescriptions, OTC, herbals, cannabis, and nutritional supplements).: Yes
[2025-09-25] MEDS: PIPERACILLIN/TAZOBACTAM SOD 3.375 GM in SODIUM CHLORIDE 0.9% IV 50 ML 100 ML IVPB (17:51)
[2025-09-25 18:13] LABS: INR 1.3; Partial Thromboplastin Time 35.9 Seconds (22.3-36.8); Prothrombin Time 16.2 Seconds (11.1-14.7)
[2025-09-25] MEDS: LACTATED RINGERS 1,000 ML 999 ML IV CONT ×2 (18:18)
--- NOTE | 2025-09-25 18:19 | WPCEDHO ---
ED Hand Off Checklist All vitals saved: yes IV Site documented: yes All med administrations documented: yes Triage Note Triage Note PT to ED from her work via EMS co 09/25/25 14:22 SOB that she states has been intermittent for the last several months. PT states she has been to her PCP and reports everything has come back ok. Pt endorses productive cough with clear mucous. Allergies No Known Allergies Allergy (Verified 09/25/25 12:07) Active Medications including assessments/comments Lactated Ringer's (Lr - Lactated Ringers Iv) 1,000 mls @ 999 mls/hr IV CONT .Q1H1M STA Stop: 09/25/25 18:35 Last Admin: 09/25/25 18:18 Dose: 999 mls/hr Documented By: CAMELIA Infusion/Titration Document 09/25/25 18:18 CAMELIA (Rec: 09/25/25 18:18 CAMELIA [id number]) Intake IV Site Peripheral Access Right Antecubital Container Volume 1,000 Waste Amount 0 Dosing Infusion Rate 999 Cumulative Dose Not Applicable Increase/Decrease Started Elapsed Time Elapsed Time ( 0m minutes) Lactated Ringer's (Lr - Lactated Ringers Iv) 1,000 mls @ 999 mls/hr IV CONT .Q1H1M STA Stop: 09/25/25 18:46 Last Admin: 09/25/25 18:18 Dose: 999 mls/hr Documented By: CAMELIA Infusion/Titration Document 09/25/25 18:18 CAMELIA (Rec: 09/25/25 18:18 CAMELIA [id number]) Intake IV Site Peripheral Access Left Antecubital Container Volume 1,000 Waste Amount 0 Dosing Infusion Rate 999 Cumulative Dose Not Applicable Increase/Decrease Started Elapsed Time Elapsed Time ( 0m minutes) Administered/Completed Medications Discontinued Medications Acetaminophen (Acetaminophen 500 Mg Tablet) 1,000 mg PO ONCE STA Stop: 09/25/25 15:39 Last Admin: 09/25/25 16:44 Dose: 1,000 mg Documented By: CAMELIA Piperacillin Sod/Tazobactam (Sod 3.375 gm/ Sodium Chloride) 50 mls @ 100 mls/hr IVPB ONCE STA Stop: 09/25/25 17:11 Last Admin: 09/25/25 17:51 Dose: 100 mls/hr Documented By: CAMELIA Ondansetron HCl (Ondansetron Inj 4 Mg/2 Ml Vial) 4 mg IV PUSH ONCE STA Stop: 09/25/25 15:31 Last Admin: 09/25/25 15:37 Dose: 4 mg Documented By: CAMELIA Notes 09/25/25 15:56 Nurse Note by Nataliia Finney patient ambulated to the bathroom with a steady gait to provide a urine sample Initialized on 09/25/25 15:56 - END OF NOTE Interventions/Assessments IV / Saline Lock, Insert Start: 09/25/25 12:02 Freq: Status: Active Protocol: Document 09/25/25 12:07 KED (Rec: 09/25/25 12:07 KED [id number]) IV Assessment Peripheral Access Left Antecubital IV Catheter Access Initiated Before Arrival IV Insertion Date 09/25/25 Catheter Gauge 20 IV Site Assessment WNL IV Care and WNL Maintenance IV / Saline Lock, Insert Start: 09/25/25 13:23 Freq: STAT Status: Active Protocol: Document 09/25/25 14:25 CAMELIA (Rec: 09/25/25 14:25 CAMELIA [id number]) IV Assessment Peripheral Access Right Antecubital IV Catheter Access Initiated IV Insertion Date 09/25/25 IV Insertion Time 14:25 Catheter Gauge 18 IV Site Assessment WNL IV Care and WNL Maintenance PA: Cardiovascular Assessment Start: 09/25/25 12:02 Freq: Status: Active Protocol: Document 09/25/25 14:23 CAMELIA (Rec: 09/25/25 14:25 CAMELIA [id number]) Cardiovascular Assessment Cardiovascular Dyspnea Symptoms Skin Description Pallor,Warm PA: Respiratory Assessment Start: 09/25/25 12:02 Freq: Status: Active Protocol: Document 09/25/25 14:23 CAMELIA (Rec: 09/25/25 14:25 CAMELIA [id number]) Respiratory Assessment Symptoms Congestion,Cough Effort Normal Depth Normal Chest Expansion Symmetrical Pattern Regular Bilateral Throughout Phase Inspiratory & Expiratory Lung Sounds Clear Cough Description Loose,Productive Sputum Amount Small Sputum Color Clear Sputum Consistency Mucoid Additional pt states that she coughs up clear unless she has Respiratory Comments recently eaten and then she coughs up what she's eaten Oxygen Delivery Oxygen Delivery Room Air Pulse Oximetry (90- 100 100) Last Vital Signs Temperature 97.8 F 09/25/25 12:02 Pulse Rate 102 H 09/25/25 18:05 Respiratory Rate 18 09/25/25 18:05 Pulse Oximetry 98 09/25/25 18:05 Blood Pressure 107/89 09/25/25 14:22 Blood Pressure Mean 95 09/25/25 14:22 Oxygen Delivery Room Air 09/25/25 14:23 Weight 106.8 kg 09/25/25 14:22 Last Result - Abnormals Only WBC 18.3 K/mm3 (4.5-10.0) H 09/25/25 14:26 Immature Gran % (Auto) 1.3 % (0-0.5) H 09/25/25 14: Neut % (Auto) 87.1 % (45.5-73.1) H 09/25/25 14: Lymph % (Auto) 6.0 % (18.3-44.2) L 09/25/25 14:26 [place] # (Auto) 0.9 K/mm3 (0.1-0.6) H 09/25/25 14:26 Abs Immat Gran (auto) 0.24 K/mm3 (0.00-0.031) H 09/25/25 14:26 Absolute Neuts (auto) 15.9 K/mm3 (1.3-6.7) H 09/25/25 14:26 PT 16.2 Seconds (11.1-14.7) H 09/25/25 14:26 Sodium 132 mmol/L (137-145) L 09/25/25 14: Total Bilirubin 1.4 mg/dL (0.2-1.3) H 09/25/25 14:26 Ur Specific [place] > 1.045 (1.001-1.035) H 09/25/25 16:28 Urine Protein 1+ mg/dL (Negative) H 09/25/25 16:28 Urine Ketones 1+ mg/dL (Negative) H 09/25/25 16:28 Ur Blood (Man) Non-hemolyzed trace (Negative) H 09/25/25 16: Urine Nitrate Positive (Negative) H 09/25/25 16:28 Urine RBC 6-10 /hpf (0-2) H 09/25/25 16:28 Urine WBC 11-20 /hpf (0-3) H 09/25/25 16: Urine Bacteria 4+ /hpf H 09/25/25 16:28 Most Recent Suicide Severity Rating Suicide Severity Rating NO RISK INDICATED 09/25/25 14:22
--- NOTE | 2025-09-25 18:36 | ADMGEN ---
This patient, Jody Rodriguez, was admitted to Medical Room 249-01. Patient/family oriented to hospital policies and general routines including ID bracelet, bed and alarms, visiting hours, pain management, procedures, bathroom and other care routines, personal items, smoking policy, room service/diet, and visiting hours. Information on how to activate the Rapid Response Team has been discussed. Patient/Family are encouraged to report perceived risks to care and to ask questions if they do not understand what they are told or what they should do.
[2025-09-25 18:49] LABS: Procalcitonin 0.2 ng/mL
--- NOTE | 2025-09-25 18:56 | PC.NURSE ---
patient left department with two LR boluses running.
[2025-09-25 19:29] LABS: CRP 30.3 mg/dL (<1.0)
[2025-09-25] MEDS: VANCOMYCIN 1,250 MG/NS 250 ML 1,250 MG/250 ML BAG 166.67 MG IVPB ×2 (21:09→23:01)
[2025-09-25] MEDS: BENZONATATE 100 MG CAPSULE PO (21:32)
[2025-09-25] MEDS: guaiFENesin 12 HR 600 MG TABCR PO (21:33)
[2025-09-26] VITALS (12 sets, daily range): BP systolic 103–130; BP diastolic 57–66; PULSE 81–97; RESP 18–20; TEMP 36.4–37.3; O2SAT 94–100
[2025-09-26] MEDS: LACTATED RINGERS 1,000 ML 75 ML IV CONT (00:35)
[2025-09-26] MEDS: PIPERACILLIN/TAZOBACTAM SOD 3.375 GM in SODIUM CHLORIDE 0.9% IV 50 ML 100 ML IVPB ×5 (00:36→23:31)
[2025-09-26 05:04] LABS: Hematocrit 33.3 % (37.0-47.0); Hemoglobin 10.8 g/dL (12.0-15.0); Immature Granulocyte Percent A 1.2 % (0-0.5); Lymphocytes Absolute Auto 0.70 K/mm3 (0.9-3.2); Mean Corpuscular HGB Conc 32.4 g/dl (32-36); Mean Corpuscular Hemoglobin 30.3 pg (26-34); Mean Corpuscular Volume 93.3 fl (80-100); Nucleated Red Blood Cells Absolute Auto 0.000 K/mm3 (0.0-0.012); Nucleated Red Blood Cells Perc 0.0 % (0.0-0.2); Platelet Count Result 227 k/mm3 (150-375); Red Blood Count 3.57 M/mm3 (4.2-5.4); White Blood Count 12.9 K/mm3 (4.5-10.0)
[2025-09-26 05:18] LABS: Alanine Aminotransferase 15 U/L (6-35); Albumin Level 2.9 g/dL (3.5-5.1); Alkaline Phosphatase 75 U/L (38-126); Anion Gap 5 mmol/L (4-12); Aspartate Amino Transferase 18 U/L (14-36); Bilirubin,Total 1.2 mg/dL (0.2-1.3); Blood Urea Nitrogen 11 mg/dL (7-17); Calcium 8.2 mg/dL (8.4-10.2); Carbon Dioxide 24 mmol/L (22-30); Chloride 103 mmol/L (98-107); Estimated Glomerular Filt Rate > 60; Glucose 107 mg/dL (65-110); Potassium 3.9 mmol/L (3.4-5.0); Sodium 132 mmol/L (137-145); Total Protein 6.0 g/dL (6.3-8.2)
[2025-09-26 05:23] LABS: NT Pro B Type Natriuretic Pept 126 pg/mL (19.9-100)
--- NOTE | 2025-09-26 07:10 | P.PNIM_ITS ---
Progress Note: A&P Assessment and Plan (1) SIRS (systemic inflammatory response syndrome): Code(s): R65.10 - Systemic inflammatory response syndrome (SIRS) of non-infectious origin without acute organ dysfunction Status: Acute Assessment and Plan: Patient met SIRS criteria due to heart rate (107-111) and WBC (18.3). - lactic acid: 1.0 - s/p 2L bolus in the ED -> 75 ml/hr x1 L anemia likely dilutional from sepsis fluids on admission, continue to monitor. No signs of active bleeding. - likely source: psoas abscess and uti - blood cultures drawn on 09/25: pending - UA concerning for infection. Urine culture: pending - Viral PCR negative. CXR showed no acute process. Chest CTA negative for PE and acute process. - CT of the abdomen/pelvis (09/25): complex cystic mass within the left iliopsoas muscle with adjacent induration measuring 9.4 x 12.1 x 7.3 cm suggestive of an abscess. WBC downtrending. Vitals remain stable. See plan below. (2) Abscess: Code(s): L02.91 - Cutaneous abscess, unspecified Status: Acute Assessment and Plan: Meeting sepsis criteria as above. CT of the abdomen/pelvis (09/25): complex cystic mass within the left iliopsoas muscle with adjacent induration measuring 9.4 x 12.1 x 7.3 cm suggestive of an abscess. Antibiotics: Zosyn and vanc on 09/26 Surgery consulted, appreciate recommendations plan for percutaneous drain with IR Urology consulted, appreciate recommendations (3) UTI (urinary tract infection): Qualifiers: Hematuria presence: without hematuria Urinary tract infection type: acute cystitis Qualified Code(s): N30.00 - Acute cystitis without hematuria Code(s): N39.0 - Urinary tract infection, site not specified Status: Acute Assessment and Plan: - UA concerning for infection - UC obtained on 09/25: pending - previous micro reviewed 04/2024: ecoli pansensitive - started on zosyn and vanc for cocurrent abscess on 09/26 (4) Shortness of breath: Code(s): R06.02 - Shortness of breath Status: Acute Assessment and Plan: Patient initially presented here for shortness of breath with productive cough yielding clear mucus. No history of smoking. She reports symptoms have been ongoing for months. No current concern for pneumonia. Viral PCR negative on 09/25. CXR and CTA showed no acute process. O2 stats reviewed and remain stable Denies any current shortness of breath. Vitals remain stable. (5) Hypertension: Qualifiers: Hypertension type: primary hypertension Qualified Code(s): I10 - Essential (primary) hypertension Code(s): I10 - Essential (primary) hypertension Status: Acute Assessment and Plan: - chronic - Hold spironolactone, resume as appropriate following drain placement - Hydralazine p.r.n. in interim. - blood pressures reviewed and remains stable, continue to monitor Time Spent With Patient Time with patient: 25 - 35 minutes Subjective Date/time seen: 09/26/25 07:10 Interval history: Patient is pleasant lying in bed with family at bedside. She continues to endorse slight left flank pain but otherwise has no complaints. She has no other complaints denying chest pain, palpitations, shortness of breath , nausea/vomiting. Patient denies any UTI like symptoms including dysuria, hematuria, burning and odor. Review of Systems Review of Systems: All systems reviewed & are unremarkable except as noted in HPI and below Exam Narrative: AF HR 94 RR 20 SpO2 97 BP 103/60 General: female in no acute respiratory distress who is nontoxic appearing, lying semi recumbent in bed. HEENT: Normocephalic. Atraumatic. Extraocular movement intact. Sclera clear and anicteric. No facial asymmetry. Chest: Lungs are clear to auscultation bilaterally. No wheezes or crackles. CV: Heart was regular rate and rhythm. Abd: Abdomen was soft. Slight tenderness to the left flank. Nondistended. Positive bowel sounds. Ext: No clubbing, cyanosis, or edema. DP pulses bilaterally. Neuro: Patient is alert and oriented x3. Speech is clear. Objective Data Vital Signs Vital Signs: Vital Signs - 24 hr 09/25/25 12:02 09/25/25 14:22 09/25/25 14:23 Temperature 97.8 F Pulse Rate 107 H 111 H Respiratory Rate 18 15 Blood Pressure 117/63 107/89 Pulse Oximetry 100 99 100 Oxygen Delivery Room Air Room Air Room Air 09/25/25 18:05 09/25/25 19:01 09/25/25 19:01 Temperature 98.0 F Pulse Rate 102 H 106 H 106 H Respiratory Rate 18 16 16 Blood Pressure 138/60 Pulse Oximetry 98 98 98 Oxygen Delivery Room Air 09/25/25 20:00 09/25/25 21:10 09/25/25 21:35 Temperature 98.2 F Pulse Rate 105 H 86 Respiratory Rate 20 Blood Pressure 131/74 Pulse Oximetry 90 Oxygen Delivery Room Air 09/26/25 00:00 09/26/25 04:00 09/26/25 05:48 Temperature 97.9 F Pulse Rate 81 89 94 Respiratory Rate 20 Blood Pressure 103/60 Pulse Oximetry 97 Oxygen Delivery Intake/Output Intake/Output: Intake & Output 09/23/25 09/24/25 09/25/25 09/26/25 23:59 23:59 23:59 23:59 Intake Total 300 550 Output Total 300 2 Balance 0 548 Meds/Results Medications: Active Medications Generic Name Dose Route Start Last Admin Trade Name Freq PRN Reason Stop Dose Admin Acetaminophen 650 mg 09/25/25 21:30 Acetaminophen 325 Mg Tablet PO Q6H PRN Pain Rated 1-3, Fever Hydrocodone Bitart/Acetaminophen 1 tab 09/25/25 22:09 Hydrocodone/Acetaminophen (*Crx) 5-325 Mg Tablet PO Q6H PRN Pain Rated 4-6 Benzonatate 100 mg 09/25/25 18:02 09/25/25 21:32 Benzonatate 100 Mg Capsule PO 100 mg TID PRN Administration Cough Fluticasone Propionate 2 spray 09/26/25 09:00 Fluticasone Propionate 0.05% Na Spr 16 Gm Btl (*Bkc) NASAL QAM SELVIN Guaifenesin 600 mg 09/25/25 21:00 09/25/25 21:33 Guaifenesin 12 Hr 600 Mg Tabcr PO 600 mg Q12HR SELVIN Administration Hydralazine HCl 10 mg 09/25/25 20:55 Hydralazine Hcl 20 Mg/Ml Vial IV PUSH Q8H PRN Blood Pressure - High, >180/90 Piperacillin Sod/Tazobactam 50 mls @ 100 mls/hr 09/26/25 00:00 09/26/25 05:38 Sod 3.375 gm/ Sodium Chloride IVPB Infused Q6H SELVIN Infusion Lactated Ringer's 1,000 mls @ 75 mls/hr 09/25/25 18:40 09/26/25 00:35 Lr - Lactated Ringers Iv IV CONT 09/26/25 07:59 75 mls/hr .[id number] SELVIN Administration Vancomycin HCl 1,500 mg in 500 mls @ 250 mls/hr 09/26/25 15:00 Vancomycin 1,500 Mg/Ns 500 Ml IVPB Q18H SELVIN Morphine Sulfate 2 mg 09/25/25 22:09 Morphine Sulfate (*Crx) 4 Mg/Ml Inj IV PUSH Q4H PRN Pain Rated 7-10 Ondansetron HCl 4 mg 09/25/25 18:05 09/25/25 21:19 Ondansetron Inj 4 Mg/2 Ml Vial IV PUSH 4 mg Q4H PRN Administration Nausea And Vomiting Radiology Results: ITS Impressions Chest X-Ray 09/25/25 15:00 IMPRESSION: 1. No focal acute process seen. Chest CTA 09/25/25 15:25 IMPRESSION: Negative for pulmonary embolism. No acute process Abdomen/Pelvis CT 09/25/25 16:02 IMPRESSION: Complex cystic mass within the left iliopsoas muscle with adjacent induration measuring 9.4 x 12.1 x 7.3 cm suggestive of an abscess. All CT scans at this facility are performed using low dose modulation techniques as appropriate to perform exam including the following: automated exposure control; use of iterative reconstruction technique; adjustment of the mA and/or kV according to patient size (this includes techniques or standardized protocols for targeted exams where dose is matched to indication/reason for exam). Labs Labs: Laboratory Results - last 24 hr 09/25/25 09/25/25 09/25/25 14:26 16:28 18:08 WBC 18.3 H RBC 4.25 Hgb 12.8 Hct 39.7 MCV 93.4 MCH 30.1 MCHC 32.2 RDW 13.9 Plt Count 277 D MPV 8.9 Immature Gran % (Auto) 1.3 H Neut % (Auto) 87.1 H Lymph % (Auto) 6.0 L [place] % (Auto) 5.2 Eos % (Auto) 0.2 Baso % (Auto) 0.2 Lymph # (Auto) 1.09 [place] # (Auto) 0.9 H Eos # (Auto) 0.0 Baso # (Auto) 0.0 Abs Immat Gran (auto) 0.24 H Absolute Neuts (auto) 15.9 H Absolute Nucleated RBC 0.000 Nucleated RBC % 0.0 PT 16.2 H INR 1.3 APTT 35.9 Sodium 132 L Potassium 4.0 Chloride 99 Carbon Dioxide 25 Anion Gap 8 BUN 14 D Creatinine 0.72 Estim Creat Clear Calc Not Reportable Estimated GFR > 60 Glucose 109 Lactic Acid 1.0 Calcium 8.9 Total Bilirubin 1.4 H AST 21 ALT 20 Alkaline Phosphatase 101 C-Reactive Protein 30.3 H NT-Pro-B Natriuret Pep Total Protein 7.5 Albumin 3.7 Lipase 32 Procalcitonin 0.2 Urine Color Yellow Urine Appearance Clear Urine pH 6.5 Ur Specific [place] > 1.045 H Urine Protein 1+ H Urine Glucose (UA) Negative Urine Ketones 1+ H Ur Blood (Man) Non-hemolyzed trace H Urine Nitrate Positive H Urine Bilirubin Negative Urine Urobilinogen 1.0 Add Ur Microanalysis Reviewed Leukocyte Esterase Rfl Negative Urine RBC 6-10 H Urine WBC 11-20 H Ur Squamous Epith Cells Few Urine Bacteria 4+ H Urine Casts 0-2 Influenza A (RT-PCR) Negative Influenza B (RT-PCR) Negative RSV (RT-PCR) Negative SARS-CoV-2 RNA (RT-PCR) Negative 09/26/25 04:46 WBC 12.9 H RBC 3.57 L Hgb 10.8 L Hct 33.3 L MCV 93.3 MCH 30.3 MCHC 32.4 RDW 13.7 Plt Count 227 MPV 9.2 Immature Gran % (Auto) 1.2 H Neut % (Auto) 87.3 H Lymph % (Auto) 5.4 L [place] % (Auto) 5.4 Eos % (Auto) 0.5 Baso % (Auto) 0.2 Lymph # (Auto) 0.70 L [place] # (Auto) 0.7 H Eos # (Auto) 0.1 Baso # (Auto) 0.0 Abs Immat Gran (auto) 0.16 H Absolute Neuts (auto) 11.2 H Absolute Nucleated RBC 0.000 Nucleated RBC % 0.0 PT INR APTT Sodium 132 L Potassium 3.9 Chloride 103 Carbon Dioxide 24 Anion Gap 5 BUN 11 Creatinine 0.68 L Estim Creat Clear Calc Not Reportable Estimated GFR > 60 Glucose 107 Lactic Acid Calcium 8.2 L Total Bilirubin 1.2 AST 18 ALT 15 Alkaline Phosphatase 75 C-Reactive Protein NT-Pro-B Natriuret Pep 126 H Total Protein 6.0 L Albumin 2.9 L Lipase Procalcitonin Urine Color Urine Appearance Urine pH Ur Specific [place] Urine Protein Urine Glucose (UA) Urine Ketones Ur Blood (Man) Urine Nitrate Urine Bilirubin Urine Urobilinogen Add Ur Microanalysis Leukocyte Esterase Rfl Urine RBC Urine WBC Ur Squamous Epith Cells Urine Bacteria Urine Casts Influenza A (RT-PCR) Influenza B (RT-PCR) RSV (RT-PCR) SARS-CoV-2 RNA (RT-PCR) Quality VTE Prophylaxis VTE prophylaxis: mechanical ordered
[2025-09-26] MEDS: ONDANSETRON INJ 4 MG/2 ML VIAL IV PUSH (08:20)
[2025-09-26] MEDS: PROCHLORPERAZINE EDISYLATE 10 MG/2 ML VIAL IV PUSH ×2 (09:50→16:08)
[2025-09-26 11:02] LABS: INR 1.4; Partial Thromboplastin Time 28.5 Seconds (22.3-36.8); Prothrombin Time 17.1 Seconds (11.1-14.7)
--- NOTE | 2025-09-26 11:02 | PM.CNGS ---
Assessment and Plan Assessment and plan (1) Psoas abscess, left: Code(s): K68.12 - Psoas muscle abscess Status: Acute Assessment and Plan: Patient presented to the hospital with fever, chills, nausea/vomiting, shortness of breath and cough for several months. Upon admission, labs revealed leukocytosis of 18.3. CT of the abdomen and pelvis demonstrated a complex cystic mass within the left iliopsoas muscle with adjacent induration measuring 9.4 x 12.1 x 7.3 cm suggestive of an abscess. Upon exam, patient is tender primarily to left flank. WBC today is better at 12.9. Currently receiving IV vancomycin and Zosyn. Spoke with interventional radiologist who is agreeable to place percutaneous drain under CT guidance today. Keep patient NPO for procedure. Continue IV antibiotics. We will continue to monitor with daily labs and abdominal exams. Urology team consulted. Await their recommendations. (2) SIRS (systemic inflammatory response syndrome): Code(s): R65.10 - Systemic inflammatory response syndrome (SIRS) of non-infectious origin without acute organ dysfunction Status: Acute Assessment and Plan: Patient met sirs criteria upon admission with increased heart rate and leukocytosis. Patient initially had shortness of breath. Chest x-ray and CT demonstrated no focal processes. Iliopsoas abscess, in combination with UTI likely source of infection. Urine and blood cultures pending. (3) UTI (urinary tract infection): Qualifiers: Hematuria presence: without hematuria Urinary tract infection type: acute cystitis Qualified Code(s): N30.00 - Acute cystitis without hematuria Code(s): N39.0 - Urinary tract infection, site not specified Status: Acute Assessment and Plan: Urine cultures pending. (4) Hypertension: Qualifiers: Hypertension type: primary hypertension Qualified Code(s): I10 - Essential (primary) hypertension Code(s): I10 - Essential (primary) hypertension Status: Acute Plan Discussed patient's case and plan of care with Dr. Douglass. History of Present Illness Consult details Consult date: 09/26/25 Reason for consult: other (Abscess) Requesting physician: Justus Zhou MD Narrative: Patient is a 59-year-old female with history of hemochromatosis and hypertension who we have been asked to see in surgical consultation for an iliopsoas abscess. Patient states that she has been having chills, fever, drowsiness, left-sided flank pain times several months. Within the past month she has developed shortness of breath, cough, nausea and vomiting, diarrhea. Upon admission to the ED, she was found have a white blood cell count of 18.3. CT imaging demonstrated a complex cystic mass within the left iliopsoas muscle with adjacent induration measuring 9.4 x 12.1 x 7.3 cm suggestive of an abscess. Urinalysis demonstrated UTI. Cultures pending. General surgery team consulted at this time. Patient was started on IV Zosyn and vancomycin. Upon my interview today, patient endorses left lower quadrant and flank pain that radiates to her back. Had an episode of emesis while I was in the room. Denies any hematemesis or hematochezia. Patient's previous abdominal surgical history includes cholecystectomy and hysterectomy. WBC this morning 12.9. Afebrile. [facility] Past Medical History Medical History (Updated 09/26/25 @ 11:19 by Judith Ruiz PA-C) History of postoperative nausea and vomiting Kidney stones History of colon polyps GERD (gastroesophageal reflux disease) Migraine Hemochromatosis Hypertension Surgical History Surgical History History of elbow surgery History of hysterectomy (1999) History of cholecystectomy Family History Family History (Updated 09/25/25 @ 19:38 by Maureen Ricketts RN) Father Cerebrovascular accident Hypertension Sibling AIDS Depression Endometriosis Heart disease Mother Arthritis Social History Social History Smoking status: Never smoker Alcohol intake: never Substance use: never Substance use type: does not use Lack of Transportation: No Lack of Food: Never True Current Housing: I Have Housing Concerned About Future Housing: No Difficulty Paying Gas/Electric Bills: No Difficulty Paying for Meds: No Currently Unemployed: No Education: Trade/Vocational Certificate Difficulty w/ Childcare or Family Care: No Living arrangements: with family Spiritual care concerns: No Meds Home Medications and Allergies Home Medications ?Medication ?Instructions ?Recorded ?Confirmed ?Type aspirin 81 mg tablet 81 mg PO DAILY 10/22/21 09/25/25 History ergocalciferol (vitamin D2) 1,250 1,250 mcg PO WEEKLY 10/22/21 09/25/25 History mcg (50,000 unit) capsule spironolactone 50 mg tablet 50 mg PO DAILY 10/22/21 09/25/25 History turmeric 100 mg-rory 150 1 cap PO DAILY 10/22/21 09/25/25 History mg-olive 50 mg-oreg 150 mg-capryl capsule oxybutynin chloride 5 mg 5 mg PO DAILY 09/17/25 09/25/25 History tablet,extended release 24 hr Allergies Allergy/AdvReac Type Severity Reaction Status Date / Time No Known Allergies Allergy Verified 09/25/25 19:02 Vital Signs Vital Signs - 24 hr 09/25/25 12:02 09/25/25 14:22 09/25/25 14:23 Temperature 97.8 F Pulse Rate 107 H 111 H Respiratory Rate 18 15 Blood Pressure 117/63 107/89 Pulse Oximetry 100 99 100 Oxygen Delivery Room Air Room Air Room Air 09/25/25 18:05 09/25/25 19:01 09/25/25 19:01 Temperature 98.0 F Pulse Rate 102 H 106 H 106 H Respiratory Rate 18 16 16 Blood Pressure 138/60 Pulse Oximetry 98 98 98 Oxygen Delivery Room Air 09/25/25 20:00 09/25/25 21:10 09/25/25 21:35 Temperature 98.2 F Pulse Rate 105 H 86 Respiratory Rate 20 Blood Pressure 131/74 Pulse Oximetry 90 Oxygen Delivery Room Air 09/26/25 00:00 09/26/25 04:00 09/26/25 05:48 Temperature 97.9 F Pulse Rate 81 89 94 Respiratory Rate 20 Blood Pressure 103/60 Pulse Oximetry 97 Oxygen Delivery 09/26/25 08:00 09/26/25 08:00 09/26/25 10:57 Temperature Pulse Rate 85 Respiratory Rate Blood Pressure Pulse Oximetry 97 95 Oxygen Delivery Room Air Room Air Exam Const: General: uncomfortable Eyes: General: appearance normal, both eyes and all related structures Neck: Neck: supple Resp: Effort & Inspection: normal respiratory effort Cardio: Rate: regular rate GI: Inspection: non-distended, Pannus present and obesity GI Palp: Yes abdominal tenderness (Left flank, lower quadrant, and back) Auscultation: normal bowel sounds Rectal Exam: deferred Skin: General skin exam: normal color and no rashes or lesions noted Neuro: Speech: normal speech Sensory Exam: normal sensation Extrem: General: normal to inspection Psych: Mental Status: mental status grossly normal Results Labs 09/26/25 04:46 09/26/25 04:46 Labs: Abnormal lab results 09/25/25 09/25/25 09/26/25 Range/Units 14:26 16:28 04:46 WBC 18.3 H 12.9 H (4.5-10.0) K/mm3 RBC 3.57 L (4.2-5.4) M/mm3 Hgb 10.8 L (12.0-15.0) g/dL Hct 33.3 L (37.0-47.0) % Immature Gran % (Auto) 1.3 H 1.2 H (0-0.5) % Neut % (Auto) 87.1 H 87.3 H (45.5-73.1) % Lymph % (Auto) 6.0 L 5.4 L (18.3-44.2) % Lymph # (Auto) 0.70 L (0.9-3.2) K/mm3 [place] # (Auto) 0.9 H 0.7 H (0.1-0.6) K/mm3 Abs Immat Gran (auto) 0.24 H 0.16 H (0.00-0.031) K/mm3 Absolute Neuts (auto) 15.9 H 11.2 H (1.3-6.7) K/mm3 PT 16.2 H (11.1-14.7) Seconds Sodium 132 L 132 L (137-145) mmol/L Creatinine 0.68 L (0.7-1.0) mg/dL Calcium 8.2 L (8.4-10.2) mg/dL Total Bilirubin 1.4 H (0.2-1.3) mg/dL C-Reactive Protein 30.3 H (<1.0) mg/dL NT-Pro-B Natriuret Pep 126 H (19.9-100) pg/mL Total Protein 6.0 L (6.3-8.2) g/dL Albumin 2.9 L (3.5-5.1) g/dL Ur Specific [place] > 1.045 H (1.001-1.035) Urine Protein 1+ H (Negative) mg/dL Urine Ketones 1+ H (Negative) mg/dL Ur Blood (Man) Non-hemolyzed trace H (Negative) Urine Nitrate Positive H (Negative) Urine RBC 6-10 H (0-2) /hpf Urine WBC 11-20 H (0-3) /hpf Urine Bacteria 4+ H /hpf Diabetes panel 09/25/25 09/26/25 Range/Units 14:26 04:46 Sodium 132 L 132 L (137-145) mmol/L Potassium 4.0 3.9 (3.4-5.0) mmol/L Chloride 99 103 (98-107) mmol/L Carbon Dioxide 25 24 (22-30) mmol/L BUN 14 D 11 (7-17) mg/dL Creatinine 0.72 0.68 L (0.7-1.0) mg/dL Glucose 109 107 (65-110) mg/dL Calcium 8.9 8.2 L (8.4-10.2) mg/dL AST 21 18 (14-36) U/L ALT 20 15 (6-35) U/L Alkaline Phosphatase 101 75 (38-126) U/L Total Protein 7.5 6.0 L (6.3-8.2) g/dL Albumin 3.7 2.9 L (3.5-5.1) g/dL Calcium panel 09/25/25 09/26/25 Range/Units 14:26 04:46 Calcium 8.9 8.2 L (8.4-10.2) mg/dL Albumin 3.7 2.9 L (3.5-5.1) g/dL Pituitary panel 09/25/25 09/26/25 Range/Units 14:26 04:46 Sodium 132 L 132 L (137-145) mmol/L Potassium 4.0 3.9 (3.4-5.0) mmol/L Chloride 99 103 (98-107) mmol/L Carbon Dioxide 25 24 (22-30) mmol/L BUN 14 D 11 (7-17) mg/dL Creatinine 0.72 0.68 L (0.7-1.0) mg/dL Glucose 109 107 (65-110) mg/dL Calcium 8.9 8.2 L (8.4-10.2) mg/dL Adrenal panel 09/25/25 09/26/25 Range/Units 14:26 04:46 Sodium 132 L 132 L (137-145) mmol/L Potassium 4.0 3.9 (3.4-5.0) mmol/L Chloride 99 103 (98-107) mmol/L Carbon Dioxide 25 24 (22-30) mmol/L BUN 14 D 11 (7-17) mg/dL Creatinine 0.72 0.68 L (0.7-1.0) mg/dL Glucose 109 107 (65-110) mg/dL Calcium 8.9 8.2 L (8.4-10.2) mg/dL Total Bilirubin 1.4 H 1.2 (0.2-1.3) mg/dL AST 21 18 (14-36) U/L ALT 20 15 (6-35) U/L Alkaline Phosphatase 101 75 (38-126) U/L Total Protein 7.5 6.0 L (6.3-8.2) g/dL Albumin 3.7 2.9 L (3.5-5.1) g/dL All other labs normal.
--- NOTE | 2025-09-26 14:29 | WPDANESEPPF ---
Anes - Initial Pre Proc Eval Procedure: CT guided drain placement left psoas abscess Date/Time: 09/26/25 14:29 Surgeon: Babak Pre Op Diagnosis: left psoas abscess Pre Op Diagnosis: UTI/Abscess Patient Data Age: 59 Gender: F Height: 1.5 m Weight: 106.8 kg Last Vital Signs Temp 36.6 C 09/26/25 13:28 Pulse 87 09/26/25 13:28 Resp 18 09/26/25 13:28 BP 105/57 L 09/26/25 13:28 Pulse Ox 97 09/26/25 13:28 O2 Del Method Room Air 09/26/25 10:57 Allergies Allergy/AdvReac Type Severity Reaction Status Date / Time No Known Allergies Allergy Verified 09/25/25 19:02 Home Medications ?Medication ?Instructions ?Recorded ?Confirmed ?Type aspirin 81 mg tablet 81 mg PO DAILY 10/22/21 09/25/25 History ergocalciferol (vitamin D2) 1,250 1,250 mcg PO WEEKLY 10/22/21 09/25/25 History mcg (50,000 unit) capsule spironolactone 50 mg tablet 50 mg PO DAILY 10/22/21 09/25/25 History turmeric 100 mg-rory 150 1 cap PO DAILY 10/22/21 09/25/25 History mg-olive 50 mg-oreg 150 mg-capryl capsule oxybutynin chloride 5 mg 5 mg PO DAILY 09/17/25 09/25/25 History tablet,extended release 24 hr Laboratory Tests 09/25/25 09/25/25 09/25/25 14:26 16:28 18:08 WBC 18.3 H K/mm3 (4.5-10.0) RBC 4.25 M/mm3 (4.2-5.4) Hgb 12.8 g/dL (12.0-15.0) Hct 39.7 % (37.0-47.0) MCV 93.4 fl (80-100) MCH 30.1 pg (26-34) MCHC 32.2 g/dl (32-36) RDW 13.9 % (11.5-14.5) Plt Count 277 D k/mm3 (150-375) MPV 8.9 fl (7.4-10.4) Immature Gran % (Auto) 1.3 H % (0-0.5) Neut % (Auto) 87.1 H % (45.5-73.1) Lymph % (Auto) 6.0 L % (18.3-44.2) Bent % (Auto) 5.2 % (2.6-8.5) Eos % (Auto) 0.2 % (0-4.4) Baso % (Auto) 0.2 % (0.2-1.2) Lymph # (Auto) 1.09 K/mm3 (0.9-3.2) Bent # (Auto) 0.9 H K/mm3 (0.1-0.6) Eos # (Auto) 0.0 K/mm3 (0-0.3) Baso # (Auto) 0.0 K/mm3 (0.0-0.1) Abs Immat Gran (auto) 0.24 H K/mm3 (0.00-0.031) Absolute Neuts (auto) 15.9 H K/mm3 (1.3-6.7) Absolute Nucleated RBC 0.000 K/mm3 (0.0-0.012) Nucleated RBC % 0.0 % (0.0-0.2) PT 16.2 H Seconds (11.1-14.7) INR 1.3 APTT 35.9 Seconds (22.3-36.8) Sodium 132 L mmol/L (137-145) Potassium 4.0 mmol/L (3.4-5.0) Chloride 99 mmol/L (98-107) Carbon Dioxide 25 mmol/L (22-30) Anion Gap 8 mmol/L (4-12) BUN 14 D mg/dL (7-17) Creatinine 0.72 mg/dL (0.7-1.0) Estim Creat Clear Calc Not Reportable Estimated GFR > 60 (59 - ) Glucose 109 mg/dL (65-110) Lactic Acid 1.0 mmol/L (0.7-2.0) Calcium 8.9 mg/dL (8.4-10.2) Total Bilirubin 1.4 H mg/dL (0.2-1.3) AST 21 U/L (14-36) ALT 20 U/L (6-35) Alkaline Phosphatase 101 U/L (38-126) C-Reactive Protein 30.3 H mg/dL (<1.0) NT-Pro-B Natriuret Pep Total Protein 7.5 g/dL (6.3-8.2) Albumin 3.7 g/dL (3.5-5.1) Lipase 32 U/L (23-300) Procalcitonin 0.2 ng/mL Urine Color Yellow (Yellow) Urine Appearance Clear (Clear) Urine pH 6.5 (5.0-9.0) Ur Specific [place] > 1.045 H (1.001-1.035) Urine Protein 1+ H mg/dL (Negative) Urine Glucose (UA) Negative mg/dL (Negative) Urine Ketones 1+ H mg/dL (Negative) Ur Blood (Man) Non-hemolyzed trace H (Negative) Urine Nitrate Positive H (Negative) Urine Bilirubin Negative (Negative) Urine Urobilinogen 1.0 mg/dL (<2.0) Add Ur Microanalysis Reviewed Leukocyte Esterase Rfl Negative LESLIE/UL (Negative) Urine RBC 6-10 H /hpf (0-2) Urine WBC 11-20 H /hpf (0-3) Ur Squamous Epith Cells Few /hpf (Few) Urine Bacteria 4+ H /hpf Urine Casts 0-2 Influenza A (RT-PCR) Negative (Negative) Influenza B (RT-PCR) Negative (Negative) RSV (RT-PCR) Negative (Negative) SARS-CoV-2 RNA (RT-PCR) Negative (Negative) 09/26/25 09/26/25 04:46 10:46 WBC 12.9 H K/mm3 (4.5-10.0) RBC 3.57 L M/mm3 (4.2-5.4) Hgb 10.8 L g/dL (12.0-15.0) Hct 33.3 L % (37.0-47.0) MCV 93.3 fl (80-100) MCH 30.3 pg (26-34) MCHC 32.4 g/dl (32-36) RDW 13.7 % (11.5-14.5) Plt Count 227 k/mm3 (150-375) MPV 9.2 fl (7.4-10.4) Immature Gran % (Auto) 1.2 H % (0-0.5) Neut % (Auto) 87.3 H % (45.5-73.1) Lymph % (Auto) 5.4 L % (18.3-44.2) Bent % (Auto) 5.4 % (2.6-8.5) Eos % (Auto) 0.5 % (0-4.4) Baso % (Auto) 0.2 % (0.2-1.2) Lymph # (Auto) 0.70 L K/mm3 (0.9-3.2) Bent # (Auto) 0.7 H K/mm3 (0.1-0.6) Eos # (Auto) 0.1 K/mm3 (0-0.3) Baso # (Auto) 0.0 K/mm3 (0.0-0.1) Abs Immat Gran (auto) 0.16 H K/mm3 (0.00-0.031) Absolute Neuts (auto) 11.2 H K/mm3 (1.3-6.7) Absolute Nucleated RBC 0.000 K/mm3 (0.0-0.012) Nucleated RBC % 0.0 % (0.0-0.2) PT 17.1 H Seconds (11.1-14.7) INR 1.4 APTT 28.5 Seconds (22.3-36.8) Sodium 132 L mmol/L (137-145) Potassium 3.9 mmol/L (3.4-5.0) Chloride 103 mmol/L (98-107) Carbon Dioxide 24 mmol/L (22-30) Anion Gap 5 mmol/L (4-12) BUN 11 mg/dL (7-17) Creatinine 0.68 L mg/dL (0.7-1.0) Estim Creat Clear Calc Not Reportable Estimated GFR > 60 (59 - ) Glucose 107 mg/dL (65-110) Lactic Acid Calcium 8.2 L mg/dL (8.4-10.2) Total Bilirubin 1.2 mg/dL (0.2-1.3) AST 18 U/L (14-36) ALT 15 U/L (6-35) Alkaline Phosphatase 75 U/L (38-126) C-Reactive Protein NT-Pro-B Natriuret Pep 126 H pg/mL (19.9-100) Total Protein 6.0 L g/dL (6.3-8.2) Albumin 2.9 L g/dL (3.5-5.1) Lipase Procalcitonin Urine Color Urine Appearance Urine pH Ur Specific [place] Urine Protein Urine Glucose (UA) Urine Ketones Ur Blood (Man) Urine Nitrate Urine Bilirubin Urine Urobilinogen Add Ur Microanalysis Leukocyte Esterase Rfl Urine RBC Urine WBC Ur Squamous Epith Cells Urine Bacteria Urine Casts Influenza A (RT-PCR) Influenza B (RT-PCR) RSV (RT-PCR) SARS-CoV-2 RNA (RT-PCR) ECG: ST 109 Patient hx anesthesia problems: none Family hx anesthesia problems: none Results Review: All pre-operative results and documents have been reviewed as part of the pre-operative evaluation. [facility] Past Medical History Medical History History of postoperative nausea and vomiting Kidney stones History of colon polyps GERD (gastroesophageal reflux disease) Migraine Hemochromatosis Hypertension Surgical History Surgical History History of elbow surgery History of hysterectomy (1999) History of cholecystectomy Family History Family History Father Cerebrovascular accident Hypertension Sibling AIDS Depression Endometriosis Heart disease Mother Arthritis Social History Social History Smoking status: Never smoker Alcohol intake: never Substance use: never Substance use type: does not use Lack of Transportation: No Lack of Food: Never True Current Housing: I Have Housing Concerned About Future Housing: No Difficulty Paying Gas/Electric Bills: No Difficulty Paying for Meds: No Currently Unemployed: No Education: Trade/Vocational Certificate Difficulty w/ Childcare or Family Care: No Living arrangements: with family Spiritual care concerns: No Anes - Eval Final PreProcedure Day of Procedure 09/26/25 14:29 Patient weight: morbidly obese Heart: regular rate and rhythm Lungs: clear to auscultation and normal air movement Airway: Mallampati scale class II Neurological: alert and oriented Last oral intake: >/= 8 hours ASA classification: III Emergent: no Anesthetic plan: proceed Anesthesia type and monitoring: general GIVS and standard monitoring Results Review: All pre-operative results and documents have been reviewed as part of the pre-operative evaluation. Informed Consent: The patient's anesthetic plan and its attendant risks and benefits were discussed with the patient/family/POA. Questions were solicited and answers provided to the satisfaction of the patient/family/POA.
--- NOTE | 2025-09-26 15:39 | SUR.PHASEI ---
LACTATED RINGERS INFUSED = 450 ML. #12 FR. ULTRA INOCENCIO DRAIN TO LEFT LOWER LATERAL BACK DRAINING THICK BLOODY PURULENT DRAINAGE. CT CALLED RE: CARE; DR RESENDEZ STATED THAT DR COTO WILL WRITE ORDERS RE: OF DRAIN.
--- NOTE | 2025-09-26 15:45 | SUR.PHASEI ---
100 ML DRAINAGE DRAINED FROM DRAIN.
[2025-09-26] MEDS: VANCOMYCIN 1,500 MG/NS 500 ML 1,500 MG/500 ML BAG 250 MG IVPB (16:07)
[2025-09-26] MEDS: MORPHINE SULFATE (*CRX) 4 MG/ML INJ 2 MG IV PUSH (16:09)
--- NOTE | 2025-09-26 16:17 | SUR.PHASEI ---
1545 REPORT GIVEN TO 2 N NURSE. THIS RN TRANSPORTED PATIENT WITH TRANSPORT MONITOR INTACT AND ON. PATIENT STATED HER PAIN WAS 9/10 AND FELT NAUSEATED. FLOOR RN AWARE.
--- NOTE | 2025-09-26 16:18 | P.CONUR_ITS ---
Assessment and Plan Assessment and plan (1) Psoas abscess, left: Code(s): K68.12 - Psoas muscle abscess Status: Acute (2) UTI (urinary tract infection): Qualifiers: Hematuria presence: without hematuria Urinary tract infection type: a cute cystitis Qualified Code(s): N30.00 - Acute cystitis without hematuria Code(s): N39.0 - Urinary tract infection, site not specified Status: Acute Plan - CT of the abdomen/pelvis (09/25): complex cystic mass within the left iliopsoas muscle with adjacent induration measuring 9.4 x 12.1 x 7.3 cm suggestive of an abscess. -IR to place drain today. Agree. -WBC has come down to 12.9 -Cr stable at 0.68 -Culture abscess fluid from drain. -urine concerning for infection. Urine culture pending. Blood cultures also pending. -Culture driven antibiotics per primary service for all of the above. -Consider ID consult for infection management and complex hx. -No urologic surgical intervention planned at this time. -Urology to follow peripherally. Please call with any needs or concerns. Urology Consult Note HPI Date Seen: 09/26/25 Requesting Physician: Timothy Hermosillo DO Primary Care Provider: Jes Rhoades, [facility] Consult Narrative Narrative: Jody Rodriguez is a 59 year old female presents here from work via EMS on 09/25 for further evaluation of shortness of breath. She reports this has been ongoing for the past 3 months. She reports the shortness of breath has been exertional and she first noticed it when she would walk across the parking lot at work. Has worsened in the last 1-2 weeks. Now also having poor appetite/poor PO intake, productive cough yielding white/clear, chills, nausea, and vomiting. Denies congestion, rhinorrhea, or fever. Recently has also developed left lower flank pain. Patient did not initially think much of her symptoms and attributed the pain as secondary to her nausea and vomiting. Noted to be febrile today, maxT 102.5F. Denies any dysuria, urinary frequency, no changes in appearance, or odor. Initial VS at presentation: 97.8? F, HR 107, R 18, 117/63, and 100% on RA. ED workup showed: WBC 18.3, no anemia, INR 1.3, sodium 132, creatinine 0.72 and GFR >60, CRP 30.3, procalcitonin 0.2, lactic 1.0, and UA concerning for UTI. Viral PCR negative. CXR showed no focal acute process. Chest CTA negative for PE or acute process. CT of the abdomen/pelvis showed a complex cystic mass within the left iliopsoas muscle with adjacent induration measuring 9.4 x 12.1 x 7.3 cm suggestive of an abscess. urology consulted for abcess. Review of Systems 2 Constitutional: Constitutional: Reports as per HPI Gastrointestinal: Gastrointestinal: Reports vomiting (Patient intermittently and frequently vomiting during exam) [facility], [facility] Past Medical History Medical History History of postoperative nausea and vomiting Kidney stones History of colon polyps GERD (gastroesophageal reflux disease) Migraine Hemochromatosis Hypertension Surgical History Surgical History History of elbow surgery History of hysterectomy (1999) History of cholecystectomy Family History Family History Father Cerebrovascular accident Hypertension Sibling AIDS Depression Endometriosis Heart disease Mother Arthritis Social History Social History Smoking status: Never smoker Alcohol intake: never Substance use: never Substance use type: does not use Lack of Transportation: No Lack of Food: Never True Current Housing: I Have Housing Concerned About Future Housing: No Difficulty Paying Gas/Electric Bills: No Difficulty Paying for Meds: No Currently Unemployed: No Education: Trade/Vocational Certificate Difficulty w/ Childcare or Family Care: No Living arrangements: with family Spiritual care concerns: No Meds Home Medications and Allergies Home Medications ?Medication ?Instructions ?Recorded ?Confirmed ?Type aspirin 81 mg tablet 81 mg PO DAILY 10/22/2109/13 History ergocalciferol (vitamin D2) 1,250 1,250 mcg PO WEEKLY 10/22/21 09/25/25 History mcg (50,000 unit) capsule spironolactone 50 mg tablet 50 mg PO DAILY 10/22/21 History turmeric 100 mg-rory 150 1 cap PO DAILY 10/22/21 History mg-olive 50 mg-oreg 150 mg-capryl capsule oxybutynin chloride 5 mg 5 mg PO DAILY 09/17/2509/25 History tablet,extended release 24 hr Allergies Allergy/AdvReac Type Severity Reaction Status Date / Time No Known Allergies Allergy Verified 09/25/25 19:02 Vital Signs Vital Signs - 24 hr 09/25/25 18:05 09/25/25 19:01 09/25/25 19:01 Temperature 98.0 F Pulse Rate 102 H 106 H 106 H Respiratory Rate 18 16 16 Blood Pressure 138/60 Pulse Oximetry 98 98 98 Oxygen Delivery Room Air 09/25/25 20:00 09/25/25 21:10 09/25/25 21:35 Temperature 98.2 F Pulse Rate 105 H 86 Respiratory Rate 20 Blood Pressure 131/74 Pulse Oximetry 90 Oxygen Delivery Room Air 09/26/25 00:00 09/26/25 04:00 09/26/25 05:48 Temperature 97.9 F Pulse Rate 81 89 94 Respiratory Rate 20 Blood Pressure 103/60 Pulse Oximetry 97 Oxygen Delivery 09/26/25 08:00 09/26/25 08:00 09/26/25 10:57 Temperature Pulse Rate 85 Respiratory Rate Blood Pressure Pulse Oximetry 97 95 Oxygen Delivery Room Air Room Air 09/26/25 12:00 09/26/25 13:28 09/26/25 15:17 Temperature 97.8 F 99.1 F Pulse Rate 97 87 84 Respiratory Rate 18 20 Blood Pressure 105/57 L 114/66 Pulse Oximetry 97 99 Oxygen Delivery Room Air 09/26/25 15:30 Temperature Pulse Rate 96 Respiratory Rate 19 Blood Pressure 130/59 L Pulse Oximetry 100 Oxygen Delivery Room Air Exam 2 Const: General: uncomfortable (Patient intermittently and frequently vomiting during exam) Eyes: General: appearance normal, both eyes and all related structures Resp: Effort & Inspection: normal respiratory effort GI: Other: Patient intermittently and frequently vomiting during exam Neuro: Speech: normal speech Psych: Speech and movement: Normal speech and movement present Results Labs 09/26/25 04:46 09/26/25 04:46 Labs: Short CBC 09/26/25 Range/Units 04:46 WBC 12.9 H (4.5-10.0) K/mm3 Hgb 10.8 L (12.0-15.0) g/dL Hct 33.3 L (37.0-47.0) % Plt Count 227 (150-375) k/mm3 BMP 09/26/25 04:46 Sodium 132 L Potassium 3.9 Chloride 103 Carbon Dioxide 24 BUN 11 Creatinine 0.68 L Glucose 107 Calcium 8.2 L Liver Function 09/26/25 Range/Units 04:46 Total Bilirubin 1.2 (0.2-1.3) mg/dL AST 18 (14-36) U/L ALT 15 (6-35) U/L Alkaline Phosphatase 75 (38-126) U/L Albumin 2.9 L (3.5-5.1) g/dL Urine 09/25/25 Range/Units 16:28 Urine Color Yellow (Yellow) Urine Appearance Clear (Clear) Urine pH 6.5 (5.0-9.0) Ur Specific [place] > 1.045 H (1.001-1.035) Urine Protein 1+ H (Negative) mg/dL Urine Glucose (UA) Negative (Negative) mg/dL
[2025-09-26] MEDS: guaiFENesin 12 HR 600 MG TABCR PO (21:12)
[2025-09-26] MEDS: HYDROcodone/acetaminophen (*CRX) 5-325 MG TABLET 1 TAB PO (21:46)
[2025-09-27] VITALS: PULSE 91
[2025-09-27 04:00] VITALS: PULSE 76
[2025-09-27] MEDS: PIPERACILLIN/TAZOBACTAM SOD 3.375 GM in SODIUM CHLORIDE 0.9% IV 50 ML 100 ML IVPB ×4 (05:11→23:30)
[2025-09-27] MEDS: HYDROcodone/acetaminophen (*CRX) 5-325 MG TABLET 1 TAB PO ×2 (05:13→23:52)
[2025-09-27 05:23] VITALS: BP 108/66; PULSE 80; RESP 20; TEMP 36.4; O2SAT 96
[2025-09-27 08:00] VITALS: PULSE 82
[2025-09-27 08:56] LABS: Estimated Glomerular Filt Rate > 60
--- NOTE | 2025-09-27 09:33 | PM.IMPN ---
Progress Note: A&P Assessment and Plan (1) SIRS (systemic inflammatory response syndrome): Code(s): R65.10 - Systemic inflammatory response syndrome (SIRS) of non-infectious origin without acute organ dysfunction Status: Acute Assessment and Plan: Patient met SIRS criteria due to heart rate (107-111) and WBC (18.3). - lactic acid: 1.0 - s/p 2L bolus in the ED -> 75 ml/hr x1 L anemia likely dilutional from sepsis fluids on admission, continue to monitor. No signs of active bleeding. - likely source: psoas abscess and uti - blood cultures drawn on 09/25: pending - UA concerning for infection. Urine culture: pending - Viral PCR negative. CXR showed no acute process. Chest CTA negative for PE and acute process. - CT of the abdomen/pelvis (09/25): complex cystic mass within the left iliopsoas muscle with adjacent induration measuring 9.4 x 12.1 x 7.3 cm suggestive of an abscess. WBC downtrending. Vitals remain stable. See plan below. trend daily labs BC and wound cultures still pending 09/27 (2) Abscess: Code(s): L02.91 - Cutaneous abscess, unspecified Status: Acute Assessment and Plan: Meeting sepsis criteria as above. CT of the abdomen/pelvis (09/25): complex cystic mass within the left iliopsoas muscle with adjacent induration measuring 9.4 x 12.1 x 7.3 cm suggestive of an abscess. Antibiotics: Zosyn and vanc on 09/26 Surgery consulted, appreciate recommendations plan for percutaneous drain with IR Urology consulted, appreciate recommendations (3) UTI (urinary tract infection): Qualifiers: Hematuria presence: without hematuria Urinary tract infection type: acute cystitis Qualified Code(s): N30.00 - Acute cystitis without hematuria Code(s): N39.0 - Urinary tract infection, site not specified Status: Acute Assessment and Plan: - UA concerning for infection - UC obtained on 09/25: pending - previous micro reviewed 04/2024: ecoli pansensitive - started on zosyn and vanc for cocurrent abscess on 09/26 (4) Shortness of breath: Code(s): R06.02 - Shortness of breath Status: Acute Assessment and Plan: Patient initially presented here for shortness of breath with productive cough yielding clear mucus. No history of smoking. She reports symptoms have been ongoing for months. No current concern for pneumonia. Viral PCR negative on 09/25. CXR and CTA showed no acute process. O2 stats reviewed and remain stable Denies any current shortness of breath. Vitals remain stable. (5) Hypertension: Qualifiers: Hypertension type: primary hypertension Qualified Code(s): I10 - Essential (primary) hypertension Code(s): I10 - Essential (primary) hypertension Status: Acute Assessment and Plan: - chronic - Hold spironolactone, resume as appropriate following drain placement - Hydralazine p.r.n. in interim. - blood pressures reviewed and remains stable, continue to monitor Plan will add probiotics as had one episode of diarrhea monitor closely Time Spent With Patient Time with patient: Greater than 35 minutes Subjective Date/time seen: 09/27/25 09:33 Interval history: 59 y/o F with PMH of hemochromatosis and hypertension presents here with shortness of breath. CT of the abdomen/pelvis (09/25): complex cystic mass within the left iliopsoas muscle with adjacent induration measuring 9.4 x 12.1 x 7.3 cm suggestive of an abscess. Urology was consulted and pt had drain placed 09/26 Pt is seen and examined this am. She is eating breakfast, states pain is well controlled. had an episode of loose stool this am. She is eating and driking ok, denies n/v. no chest pain, no sob Review of Systems Review of Systems: All systems reviewed & are unremarkable except as noted in HPI and below Exam Narrative: General: female in no acute respiratory distress who is nontoxic appearing, eating breakfast this morning. HEENT: Normocephalic. Atraumatic. Extraocular movement intact. Sclera clear and anicteric. No facial asymmetry. Chest: Lungs are clear to auscultation bilaterally. No wheezes or crackles. CV: Heart was regular rate and rhythm. Abd: Abdomen was soft. Slight tenderness to the left flank. Nondistended. Positive bowel sounds. Ext: No clubbing, cyanosis, or edema. DP pulses bilaterally. Neuro: Patient is alert and oriented x3. Speech is clear. Const: General: comfortable and no acute distress Other: , female, nontoxic appearance, obese body habitus HENMT: Face/Nose/Sinus: Normal nares present Mouth: Yes moist mucous membranes Eyes: General: appearance normal, both eyes and all related structures Sclera: sclerae normal Pupils: Equal, round and reactive pupils present EOM: EOMs intact bilaterally Resp: Effort & Inspection: normal respiratory effort Auscultation: clear to auscultation bilaterally Cardio: Rate: regular rate Rhythm: regular rhythm Other: S1-S2 present without murmur, rub, ectopy GI: Other: Abdomen soft, nondistended, nontender. Normoactive bowel sounds in all quadrants. : Other: Mild left flank tenderness Skin: General skin exam: normal color and no rashes or lesions noted Wounds: no wounds Neuro: Cranial nerves: Yes Equal, round and reactive pupils present Speech: normal speech Motor exam (neuro): 5/5 motor strength present throughout Sensory Exam: normal sensation Other: A&O x4 Extrem: General: normal to inspection Psych: Mental Status: mental status grossly normal Affect: normal affect Other: Good insight and judgment, pleasant Objective Data Vital Signs Vital Signs: Vital Signs - 24 hr 09/26/25 10:57 09/26/25 12:00 09/26/25 13:28 Temperature 97.8 F Pulse Rate 97 87 Respiratory Rate 18 Blood Pressure 105/57 L Pulse Oximetry 95 97 Oxygen Delivery Room Air 09/26/25 15:17 09/26/25 15:30 09/26/25 16:27 Temperature 99.1 F 97.8 F Pulse Rate 84 96 93 Respiratory Rate 20 19 18 Blood Pressure 114/66 130/59 L 105/61 Pulse Oximetry 99 100 98 Oxygen Delivery Room Air Room Air 09/26/25 20:00 09/26/25 20:56 09/27/25 00:00 Temperature 97.6 F Pulse Rate 96 91 91 Respiratory Rate 20 Blood Pressure 115/63 Pulse Oximetry 94 Oxygen Delivery 09/27/25 04:00 09/27/25 05:23 Temperature 97.5 F L Pulse Rate 76 80 Respiratory Rate 20 Blood Pressure 108/66 Pulse Oximetry 96 Oxygen Delivery Intake/Output Intake/Output: Intake & Output 09/24/25 09/25/25 09/26/25 09/27/25 23:59 23:59 23:59 23:59 Intake Total 300 900 60 Output Total 300 252 160 Balance 0 648 -100 Meds/Results Medications: Active Medications Generic Name Dose Route Start Last Admin Trade Name Freq PRN Reason Stop Dose Admin Acetaminophen 650 mg 09/25/25 21:30 Acetaminophen 325 Mg Tablet PO Q6H PRN Pain Rated 1-3, Fever Hydrocodone Bitart/Acetaminophen 1 tab 09/25/25 22:09 09/27/25 05:13 Hydrocodone/Acetaminophen (*Crx) 5-325 Mg Tablet PO 1 tab Q6H PRN Administration Pain Rated 4-6 Benzonatate 100 mg 09/25/25 18:02 09/25/25 21:32 Benzonatate 100 Mg Capsule PO 100 mg TID PRN Administration Cough Fluticasone Propionate 2 spray 09/26/25 09:00 09/26/25 09:27 Fluticasone Propionate 0.05% Na Spr 16 Gm Btl (*Bkc) NASAL Not Given QAM SELVIN Guaifenesin 600 mg 09/25/25 21:00 09/26/25 21:12 Guaifenesin 12 Hr 600 Mg Tabcr PO 600 mg Q12HR SELVIN Administration Hydralazine HCl 10 mg 09/25/25 20:55 Hydralazine Hcl 20 Mg/Ml Vial IV PUSH Q8H PRN Blood Pressure - High, >180/90 Piperacillin Sod/Tazobactam 50 mls @ 100 mls/hr 09/26/25 00:00 09/27/25 05:11 Sod 3.375 gm/ Sodium Chloride IVPB 100 mls/hr Q6H SELVIN Administration Vancomycin HCl 2,000 mg in 500 mls @ 250 mls/hr 09/27/25 10:00 Vancomycin 2,000 Mg/Ns 500 Ml IVPB Q12H SELVIN Morphine Sulfate 2 mg 09/25/25 22:09 09/26/25 16:09 Morphine Sulfate (*Crx) 4 Mg/Ml Inj IV PUSH 2 mg Q4H PRN Administration Pain Rated 7-10 Prochlorperazine Edisylate 10 mg 09/26/25 09:28 09/26/25 16:08 Prochlorperazine Edisylate 10 Mg/2 Ml Vial IV PUSH 10 mg Q6H PRN Administration Nausea And Vomiting Radiology Results: ITS Impressions Chest X-Ray 09/25/25 15:00 IMPRESSION: 1. No focal acute process seen. Chest CTA 09/25/25 15:25 IMPRESSION: Negative for pulmonary embolism. No acute process Abdomen/Pelvis CT 09/25/25 16:02 IMPRESSION: Complex cystic mass within the left iliopsoas muscle with adjacent induration measuring 9.4 x 12.1 x 7.3 cm suggestive of an abscess. All CT scans at this facility are performed using low dose modulation techniques as appropriate to perform exam including the following: automated exposure control; use of iterative reconstruction technique; adjustment of the mA and/or kV according to patient size (this includes techniques or standardized protocols for targeted exams where dose is matched to indication/reason for exam). Catheter Placement CT 09/26/25 15:28 IMPRESSION: 1. Successful CT-guided abscess drainage. 2. 50 mL of purulent appearing opaque saenz foul-smelling fluid was sent for aerobic and anaerobic cultures. 3. The catheter will be managed by Dr. Douglass. Labs Labs: Laboratory Results - last 24 hr 09/26/25 09/27/25 10:46 08:08 PT 17.1 H INR 1.4 APTT 28.5 Creatinine 0.76 Estim Creat Clear Calc Not Reportable Estimated GFR > 60 Vancomycin Trough 8.7 L Quality VTE Prophylaxis VTE prophylaxis: mechanical ordered
[2025-09-27] MEDS: VANCOMYCIN 2,000 MG/NS 500 ML 2,000 MG/500 ML BAG 250 MG IVPB ×2 (09:44→21:23)
[2025-09-27] MEDS: FLUTICASONE PROPIONATE 0.05% NA SPR 16 GM BTL (*BKC) 2 SPRAY NASAL (09:44)
[2025-09-27] MEDS: guaiFENesin 12 HR 600 MG TABCR PO ×2 (09:46→21:23)
[2025-09-27 10:42] LABS: Hematocrit 38.1 % (37.0-47.0); Hemoglobin 11.4 g/dL (12.0-15.0); Mean Corpuscular HGB Conc 29.9 g/dl (32-36); Mean Corpuscular Hemoglobin 29.9 pg (26-34); Mean Corpuscular Volume 100.0 fl (80-100); Platelet Count Result 231 k/mm3 (150-375); Red Blood Count 3.81 M/mm3 (4.2-5.4); White Blood Count 10.0 K/mm3 (4.5-10.0)
[2025-09-27 10:48] LABS: Alanine Aminotransferase 14 U/L (6-35); Albumin Level 3.1 g/dL (3.5-5.1); Alkaline Phosphatase 78 U/L (38-126); Anion Gap 5 mmol/L (4-12); Aspartate Amino Transferase 22 U/L (14-36); Bilirubin,Total 1.0 mg/dL (0.2-1.3); Blood Urea Nitrogen 10 mg/dL (7-17); Calcium 8.3 mg/dL (8.4-10.2); Carbon Dioxide 22 mmol/L (22-30); Chloride 106 mmol/L (98-107); Glucose 93 mg/dL (65-110); Potassium 4.0 mmol/L (3.4-5.0); Sodium 133 mmol/L (137-145); Total Protein 6.2 g/dL (6.3-8.2)
--- NOTE | 2025-09-27 11:23 | PM.PNGS ---
Progress Note: A&P Assessment and Plan (1) Psoas abscess, left: Code(s): K68.12 - Psoas muscle abscess Status: Acute Assessment and Plan: Successful percutaneous drainage yesterday. Large amount of output and continuing to drain. Output was very purulent appearing but drainage now is serosanguineous. Infection clearly improving with drainage and Zosyn. Source of the abscess is still unknown. Gram stain and cultures from drainage procedure are pending. Patient can be up today. Tolerating solid food. (2) UTI (urinary tract infection): Qualifiers: Hematuria presence: without hematuria Urinary tract infection type: acute cystitis Qualified Code(s): N30.00 - Acute cystitis without hematuria Code(s): N39.0 - Urinary tract infection, site not specified Status: Acute Assessment and Plan: Urine culture positive for Gram-negative rods, further identification is pending. Blood cultures negative so far. Urology consultation noted Subjective Subjective Date/Time Seen: 09/27/25 11:23 Post Op day: 1 (Status post abscess drainage catheter placement) Patient reports: feels better (Feels much better, only hurts when drain site examined or when left CVA palpated), pain is less, tolerating a regular diet, voiding w/o difficulty and afebrile Review of Systems Review of Systems: All systems reviewed & are unremarkable except as noted in HPI and below (HPI) Exam Const: General: cooperative, comfortable, alert, awake and well groomed Nutritional Appearance: obese Orientation/consciousness: patient oriented x3 and No confusion GI: Inspection: no abdominal wall ecchymosis, non-distended, obesity, no visible herniation and other (Drain output looking more sanguinous right now, had been purulent) GI Palp: Yes abdominal tenderness (Left CVA tenderness at drain site, otherwise abdomen nontender), No Soft to palpation, No Tenderness to palpation present (GI), No Hernia present and No Palpable mass present Auscultation: normoactive bowel sounds Objective Data Vital Signs Vital Signs: Vital Signs - 24 hr 09/26/25 12:00 09/26/25 13:28 09/26/25 15:17 Temperature 36.6 C 37.3 C Pulse Rate 97 87 84 Respiratory Rate 18 20 Blood Pressure 105/57 L 114/66 Pulse Oximetry 97 99 Oxygen Delivery Room Air 09/26/25 15:30 09/26/25 16:27 09/26/25 20:00 Temperature 36.6 C Pulse Rate 96 93 96 Respiratory Rate 19 18 Blood Pressure 130/59 L 105/61 Pulse Oximetry 100 98 Oxygen Delivery Room Air 09/26/25 20:56 09/27/25 00:00 09/27/25 04:00 Temperature 36.4 C Pulse Rate 91 91 76 Respiratory Rate 20 Blood Pressure 115/63 Pulse Oximetry 94 Oxygen Delivery 09/27/25 05:23 Temperature 36.4 C L Pulse Rate 80 Respiratory Rate 20 Blood Pressure 108/66 Pulse Oximetry 96 Oxygen Delivery Intake/Output Intake/Output: Intake & Output 09/24/25 09/25/25 09/26/25 09/27/25 23:59 23:59 23:59 23:59 Intake Total 300 900 536 Output Total 300 252 160 Balance 0 648 376 Meds/Results Medications: Active Medications Generic Name Dose Route Start Last Admin Trade Name Freq PRN Reason Stop Dose Admin Acetaminophen 650 mg 09/25/25 21:30 Acetaminophen 325 Mg Tablet PO Q6H PRN Pain Rated 1-3, Fever Hydrocodone Bitart/Acetaminophen 1 tab 09/25/25 22:09 09/27/25 05:13 Hydrocodone/Acetaminophen (*Crx) 5-325 Mg Tablet PO 1 tab Q6H PRN Administration Pain Rated 4-6 Benzonatate 100 mg 09/25/25 18:02 09/25/25 21:32 Benzonatate 100 Mg Capsule PO 100 mg TID PRN Administration Cough Fluticasone Propionate 2 spray 09/26/25 09:00 09/27/25 09:44 Fluticasone Propionate 0.05% Na Spr 16 Gm Btl (*Bkc) NASAL 2 spray QAM SELVIN Administration Guaifenesin 600 mg 09/25/25 21:00 09/27/25 09:46 Guaifenesin 12 Hr 600 Mg Tabcr PO 600 mg Q12HR SELVIN Administration Hydralazine HCl 10 mg 09/25/25 20:55 Hydralazine Hcl 20 Mg/Ml Vial IV PUSH Q8H PRN Blood Pressure - High, >180/90 Piperacillin Sod/Tazobactam 50 mls @ 100 mls/hr 09/26/25 00:00 09/27/25 05:11 Sod 3.375 gm/ Sodium Chloride IVPB 100 mls/hr Q6H SELVIN Administration Vancomycin HCl 2,000 mg in 500 mls @ 250 mls/hr 09/27/25 10:00 09/27/25 09:44 Vancomycin 2,000 Mg/Ns 500 Ml IVPB 250 mls/hr Q12H SELVIN Administration Morphine Sulfate 2 mg 09/25/25 22:09 09/26/25 16:09 Morphine Sulfate (*Crx) 4 Mg/Ml Inj IV PUSH 2 mg Q4H PRN Administration Pain Rated 7-10 Prochlorperazine Edisylate 10 mg 09/26/25 09:28 09/26/25 16:08 Prochlorperazine Edisylate 10 Mg/2 Ml Vial IV PUSH 10 mg Q6H PRN Administration Nausea And Vomiting Saccharomyces Boulardii 250 mg 09/27/25 13:00 Saccharomyces Boulardii 250 Mg Capsule PO TID [facility] Radiology Results: ITS Impressions Chest X-Ray 09/25/25 15:00 IMPRESSION: 1. No focal acute process seen. Chest CTA 09/25/25 15:25 IMPRESSION: Negative for pulmonary embolism. No acute process Abdomen/Pelvis CT 09/25/25 16:02 IMPRESSION: Complex cystic mass within the left iliopsoas muscle with adjacent induration measuring 9.4 x 12.1 x 7.3 cm suggestive of an abscess. All CT scans at this facility are performed using low dose modulation techniques as appropriate to perform exam including the following: automated exposure control; use of iterative reconstruction technique; adjustment of the mA and/or kV according to patient size (this includes techniques or standardized protocols for targeted exams where dose is matched to indication/reason for exam). Catheter Placement CT 09/26/25 15:28 IMPRESSION: 1. Successful CT-guided abscess drainage. 2. 50 mL of purulent appearing opaque saenz foul-smelling fluid was sent for aerobic and anaerobic cultures. 3. The catheter will be managed by Dr. Douglass. Labs Labs: Laboratory Results - last 24 hr 09/27/25 08:08 WBC 10.0 RBC 3.81 L Hgb 11.4 L Hct 38.1 MCV 100.0 D MCH 29.9 MCHC 29.9 L RDW 14.1 Plt Count 231 MPV 10.2 Sodium 133 L Potassium 4.0 Chloride 106 Carbon Dioxide 22 Anion Gap 5 BUN 10 Creatinine 0.76 Estim Creat Clear Calc Not Reportable Estimated GFR > 60 Glucose 93 Calcium 8.3 L Total Bilirubin 1.0 AST 22 ALT 14 Alkaline Phosphatase 78 Total Protein 6.2 L Albumin 3.1 L Vancomycin Trough 8.7 L
[2025-09-27] MEDS: SACCHAROMYCES BOULARDII 250 MG CAPSULE PO ×2 (12:56→17:48)
[2025-09-27 14:00] VITALS: BP 119/72; PULSE 88; RESP 16; TEMP 36; O2SAT 98
[2025-09-27] MEDS: PROCHLORPERAZINE EDISYLATE 10 MG/2 ML VIAL IV PUSH (17:48)
[2025-09-27 20:38] VITALS: BP 125/73; PULSE 94; RESP 18; TEMP 37.2; O2SAT 97
[2025-09-28] MEDS: PIPERACILLIN/TAZOBACTAM SOD 3.375 GM in SODIUM CHLORIDE 0.9% IV 50 ML 100 ML IVPB ×4 (05:31→23:50)
[2025-09-28 06:00] VITALS: BP 123/64; PULSE 78; RESP 18; TEMP 36.8; O2SAT 98
--- NOTE | 2025-09-28 08:11 | PM.IMPN ---
Progress Note: A&P Assessment and Plan (1) SIRS (systemic inflammatory response syndrome): Code(s): R65.10 - Systemic inflammatory response syndrome (SIRS) of non-infectious origin without acute organ dysfunction Status: Acute Assessment and Plan: Patient met SIRS criteria due to heart rate (107-111) and WBC (18.3). - lactic acid: 1.0 - s/p 2L bolus in the ED -> 75 ml/hr x1 L - likely source: psoas abscess and uti - blood cultures drawn on 09/25: No growth 24 hours - UA concerning for infection. Urine culture: gram negative bacilli - Viral PCR negative. CXR showed no acute process. Chest CTA negative for PE and acute process. - CT of the abdomen/pelvis (09/25): complex cystic mass within the left iliopsoas muscle with adjacent induration measuring 9.4 x 12.1 x 7.3 cm suggestive of an abscess. Resolved. WBC WNL. Vitals stable. (2) Abscess: Code(s): L02.91 - Cutaneous abscess, unspecified Status: Acute Assessment and Plan: Meeting sepsis criteria as above. CT of the abdomen/pelvis (09/25): complex cystic mass within the left iliopsoas muscle with adjacent induration measuring 9.4 x 12.1 x 7.3 cm suggestive of an abscess. Antibiotics: Zosyn and vanc on 09/26 Surgery consulted, appreciate recommendations s/p percutaneous drain with IR on 09/26 with foul smelling fluid source of the abscess is still unknown. Gram stain and cultures from drainage procedure are pending. Urology consulted, appreciate recommendations no urologic surgical intervention planned at this time Infectious disease consulted WBC WNL. Remains on abx as above. Drain in place with min serosanguinous output. Continue to monitor. Cultures pending, adjust abx based on sensitivities. ID consulted for further abx recommendations and duration. (3) UTI (urinary tract infection): Qualifiers: Hematuria presence: without hematuria Urinary tract infection type: acute cystitis Qualified Code(s): N30.00 - Acute cystitis without hematuria Code(s): N39.0 - Urinary tract infection, site not specified Status: Acute Assessment and Plan: - UA concerning for infection - UC obtained on 09/25: gram negative bacilli, sensitivities pending - previous micro reviewed 04/2024: ecoli pansensitive - started on zosyn and vanc for cocurrent abscess on 09/26 (4) Shortness of breath: Code(s): R06.02 - Shortness of breath Status: Acute Assessment and Plan: Patient initially presented here for shortness of breath with productive cough yielding clear mucus. No history of smoking. She reports symptoms have been ongoing for months. No current concern for pneumonia. Viral PCR negative on 09/25. CXR and CTA showed no acute process. O2 stats reviewed and remain stable Resolved. Denies SOB and cough. (5) Hypertension: Qualifiers: Hypertension type: primary hypertension Qualified Code(s): I10 - Essential (primary) hypertension Code(s): I10 - Essential (primary) hypertension Status: Acute Assessment and Plan: - chronic - Hold spironolactone, resume as appropriate following drain placement - Hydralazine p.r.n. in interim. - blood pressures reviewed and remains stable, continue to monitor Time Spent With Patient Time with patient: 25 - 35 minutes Subjective Date/time seen: 09/28/25 08:11 Interval history: Patient is pleasant sitting up on side of the bed with family at bedside. She continues to endorse slight discomfort around the drain insertion site but otherwise no complaints. She denies any UTI like symptoms, chest pain, shortness of breath, palpitations, nausea/vomiting, abdominal pain and dizziness/lightheadedness with ambulation. Review of Systems Review of Systems: All systems reviewed & are unremarkable except as noted in HPI and below Exam Narrative: AF HR 78 RR 18 Spo2 98 BP 123/64 General: female in no acute respiratory distress who is nontoxic appearing, sitting up on side of bed. HEENT: Normocephalic. Atraumatic. Extraocular movement intact. Sclera clear and anicteric. No facial asymmetry. Chest: Lungs are clear to auscultation bilaterally. No wheezes or crackles. CV: Heart was regular rate and rhythm. Abd: Abdomen was soft. Nontender. Nondistended. Positive bowel sounds. Ext: No clubbing, cyanosis, or edema. DP pulses bilaterally. Neuro: Patient is alert and oriented x3. Speech is clear. Skin: Drain placed to left flank with no erythema or warmth, serosanguinous drainage Objective Data Vital Signs Vital Signs: Vital Signs - 24 hr 09/27/25 14:00 09/27/25 20:38 09/28/25 06:00 Temperature 96.8 F L 98.9 F 98.2 F Pulse Rate 88 94 78 Respiratory Rate 16 18 18 Blood Pressure 119/72 125/73 123/64 Pulse Oximetry 98 97 98 Intake/Output Intake/Output: Intake & Output 09/25/25 09/26/25 09/27/25 09/28/25 23:59 23:59 23:59 23:59 Intake Total 214 790 8775 60 Output Total 300 252 205 25 Balance 0 648 1697 35 Meds/Results Medications: Active Medications Generic Name Dose Route Start Last Admin Trade Name Freq PRN Reason Stop Dose Admin Acetaminophen 650 mg 09/25/25 21:30 Acetaminophen 325 Mg Tablet PO Q6H PRN Pain Rated 1-3, Fever Hydrocodone Bitart/Acetaminophen 1 tab 09/25/25 22:09 09/27/25 23:52 Hydrocodone/Acetaminophen (*Crx) 5-325 Mg Tablet PO 1 tab Q6H PRN Administration Pain Rated 4-6 Benzonatate 100 mg 09/25/25 18:02 09/25/25 21:32 Benzonatate 100 Mg Capsule PO 100 mg TID PRN Administration Cough Fluticasone Propionate 2 spray 09/26/25 09:00 09/27/25 09:44 Fluticasone Propionate 0.05% Na Spr 16 Gm Btl (*Bkc) NASAL 2 spray QAM SELVIN Administration Guaifenesin 600 mg 09/25/25 21:00 09/27/25 21:23 Guaifenesin 12 Hr 600 Mg Tabcr PO 600 mg Q12HR SELVIN Administration Hydralazine HCl 10 mg 09/25/25 20:55 Hydralazine Hcl 20 Mg/Ml Vial IV PUSH Q8H PRN Blood Pressure - High, >180/90 Piperacillin Sod/Tazobactam 50 mls @ 100 mls/hr 09/26/25 00:00 09/28/25 05:31 Sod 3.375 gm/ Sodium Chloride IVPB 100 mls/hr Q6H SELVIN Administration Vancomycin HCl 2,000 mg in 500 mls @ 250 mls/hr 09/27/25 10:00 09/27/25 21:23 Vancomycin 2,000 Mg/Ns 500 Ml IVPB 250 mls/hr Q12H SELVIN Administration Morphine Sulfate 2 mg 09/25/25 22:09 09/26/25 16:09 Morphine Sulfate (*Crx) 4 Mg/Ml Inj IV PUSH 2 mg Q4H PRN Administration Pain Rated 7-10 Prochlorperazine Edisylate 10 mg 09/26/25 09:28 09/27/25 17:48 Prochlorperazine Edisylate 10 Mg/2 Ml Vial IV PUSH 10 mg Q6H PRN Administration Nausea And Vomiting Saccharomyces Boulardii 250 mg 09/27/25 13:00 09/27/25 17:48 Saccharomyces Boulardii 250 Mg Capsule PO 250 mg TID SELVIN Administration Radiology Results: ITS Impressions Chest X-Ray 09/25/25 15:00 IMPRESSION: 1. No focal acute process seen. Chest CTA 09/25/25 15:25 IMPRESSION: Negative for pulmonary embolism. No acute process Abdomen/Pelvis CT 09/25/25 16:02 IMPRESSION: Complex cystic mass within the left iliopsoas muscle with adjacent induration measuring 9.4 x 12.1 x 7.3 cm suggestive of an abscess. All CT scans at this facility are performed using low dose modulation techniques as appropriate to perform exam including the following: automated exposure control; use of iterative reconstruction technique; adjustment of the mA and/or kV according to patient size (this includes techniques or standardized protocols for targeted exams where dose is matched to indication/reason for exam). Catheter Placement CT 09/26/25 15:28 IMPRESSION: 1. Successful CT-guided abscess drainage. 2. 50 mL of purulent appearing opaque saenz foul-smelling fluid was sent for aerobic and anaerobic cultures. 3. The catheter will be managed by Dr. Douglass. Labs Labs: Laboratory Results - last 24 hr 09/27/25 08:08 WBC 10.0 RBC 3.81 L Hgb 11.4 L Hct 38.1 MCV 100.0 D MCH 29.9 MCHC 29.9 L RDW 14.1 Plt Count 231 MPV 10.2 Sodium 133 L Potassium 4.0 Chloride 106 Carbon Dioxide 22 Anion Gap 5 BUN 10 Creatinine 0.76 Estim Creat Clear Calc Not Reportable Estimated GFR > 60 Glucose 93 Calcium 8.3 L Total Bilirubin 1.0 AST 22 ALT 14 Alkaline Phosphatase 78 Total Protein 6.2 L Albumin 3.1 L Vancomycin Trough 8.7 L Quality VTE Prophylaxis VTE prophylaxis: mechanical ordered
[2025-09-28 09:41] LABS: Alanine Aminotransferase 20 U/L (6-35); Albumin Level 3.4 g/dL (3.5-5.1); Alkaline Phosphatase 89 U/L (38-126); Anion Gap 8 mmol/L (4-12); Aspartate Amino Transferase 32 U/L (14-36); Bilirubin,Total 0.7 mg/dL (0.2-1.3); Blood Urea Nitrogen 13 mg/dL (7-17); Calcium 9.1 mg/dL (8.4-10.2); Carbon Dioxide 24 mmol/L (22-30); Chloride 105 mmol/L (98-107); Estimated Glomerular Filt Rate 37; Glucose 140 mg/dL (65-110); Potassium 4.1 mmol/L (3.4-5.0); Sodium 137 mmol/L (137-145); Total Protein 6.8 g/dL (6.3-8.2)
[2025-09-28] MEDS: FLUTICASONE PROPIONATE 0.05% NA SPR 16 GM BTL (*BKC) 2 SPRAY NASAL (09:42)
[2025-09-28] MEDS: SACCHAROMYCES BOULARDII 250 MG CAPSULE PO ×3 (09:43→18:17)
[2025-09-28] MEDS: guaiFENesin 12 HR 600 MG TABCR PO ×2 (09:43→20:38)
[2025-09-28 09:57] LABS: CRP 14.7 mg/dL (<1.0)
--- NOTE | 2025-09-28 11:34 | P.PNGS_ITS ---
Progress Note: A&P Assessment and Plan (1) Psoas abscess, left: Code(s): K68.12 - Psoas muscle abscess Status: Acute Assessment and Plan: Continues to improve after percutaneous drainage. Nothing new on culture results yet today. (2) UTI (urinary tract infection): Qualifiers: Hematuria presence: without hematuria Urinary tract infection type: acute cystitis Qualified Code(s): N30.00 - Acute cystitis without hematuria Code(s): N39.0 - Urinary tract infection, site not specified Status: Acute Assessment and Plan: Gram-negative bacilli, no ID or sensitivities as yet (3) Hereditary hemochromatosis: Code(s): E83.110 - Hereditary hemochromatosis Status: Chronic Assessment and Plan: Was getting phlebotomy every 6-8 weeks in 2019. Nothing describing current management in the EHR. Subjective Subjective Date/Time Seen: 09/28/25 11:34 Post Op day: 2 (Status post percutaneous drainage left retroperitoneal abscess) Patient reports: no new complaints, feels better, pain is less, tolerating a regular diet, voiding w/o difficulty and afebrile Review of Systems Review of Systems: All systems reviewed & are unremarkable except as noted in HPI and below (HPI) Exam Const: General: cooperative, comfortable, alert and awake GI: Inspection: non-distended, obesity and other (Drain looks serosanguineous this morning. No purulent fluid noted) GI Palp: Yes Soft to palpation, No Tenderness to palpation present (GI) and Yes Other GI palpation findings present (Less tender and only at the drain exit site.) Auscultation: normal bowel so unds Objective Data Vital Signs Vital Signs: Vital Signs - 24 hr 09/27/25 14:00 09/27/25 20:38 09/28/25 06:00 Temperature 36.0 C L 37.2 C 36.8 C Pulse Rate 88 94 78 Respiratory Rate 16 18 18 Blood Pressure 119/72 125/73 123/64 Pulse Oximetry 98 97 98 Oxygen Delivery 09/28/25 08:00 Temperature Pulse Rate Respiratory Rate Blood Pressure Pulse Oximetry Oxygen Delivery Room Air Intake/Output Intake/Output: Intake & Output 09/25/25 09/26/25 09/27/25 09/28/25 23:59 23:59 23:59 23:59 Intake Total 558 687 9377 536 Output Total 300 252 205 25 Balance 0 648 1697 511 Meds/Results Medications: Active Medications Generic Name Dose Route Start Last Admin Trade Name Freq PRN Reason Stop Dose Admin Acetaminophen 650 mg 09/25/25 21:30 Acetaminophen 325 Mg Tablet PO Q6H PRN Pain Rated 1-3, Fever Hydrocodone Bitart/Acetaminophen 1 tab 09/25/25 22:09 09/27/25 23:52 Hydrocodone/Acetaminophen (*Crx) 5-325 Mg Tablet PO 1 tab Q6H PRN Administration Pain Rated 4-6 Benzonatate 100 mg 09/25/25 18:02 09/25/25 21:32 Benzonatate 100 Mg Capsule PO 100 mg TID PRN Administration Cough Fluticasone Propionate 2 spray 09/26/25 09:00 09/28/25 09:42 Fluticasone Propionate 0.05% Na Spr 16 Gm Btl (*Bkc) NASAL 2 spray QAM SELVIN Administration Guaifenesin 600 mg 09/25/25 21:00 09/28/25 09:43 Guaifenesin 12 Hr 600 Mg Tabcr PO 600 mg Q12HR SELVIN Administration Hydralazine HCl 10 mg 09/25/25 20:55 Hydralazine Hcl 20 Mg/Ml Vial IV PUSH Q8H PRN Blood Pressure - High, >180/90 Piperacillin Sod/Tazobactam 50 mls @ 100 mls/hr 09/26/25 00:00 09/28/25 05:31 Sod 3.375 gm/ Sodium Chloride IVPB 100 mls/hr Q6H SELVIN Administration Morphine Sulfate 2 mg 09/25/25 22:09 09/26/25 16:09 Morphine Sulfate (*Crx) 4 Mg/Ml Inj IV PUSH 2 mg Q4H PRN Administration Pain Rated 7-10 Prochlorperazine Edisylate 10 mg 09/26/25 09:28 09/27/25 17:48 Prochlorperazine Edisylate 10 Mg/2 Ml Vial IV PUSH 10 mg Q6H PRN Administration Nausea And Vomiting Saccharomyces Boulardii 250 mg 09/27/25 13:00 09/28/25 09:43 Saccharomyces Boulardii 250 Mg Capsule PO 250 mg TID SELVIN Administration Vancomycin HCl 1 each 09/28/25 09:58 Vancomycin For Acute Kidney Injury IVPB PRN PRN Vancomycin Protocol Radiology Results: ITS Impressions Chest X-Ray 09/25/25 15:00 IMPRESSION: 1. No focal acute process seen. Chest CTA 09/25/25 15:25 IMPRESSION: Negative for pulmonary embolism. No acute process Abdomen/Pelvis CT 09/25/25 16:02 IMPRESSION: Complex cystic mass within the left iliopsoas muscle with adjacent induration measuring 9.4 x 12.1 x 7.3 cm suggestive of an abscess. All CT scans at this facility are performed using low dose modulation techniques as appropriate to perform exam including the following: automated exposure control; use of iterative reconstruction technique; adjustment of the mA and/or kV according to patient size (this includes techniques or standardized protocols for targeted exams where dose is matched to indication/reason for exam). Catheter Placement CT 09/26/25 15:28 IMPRESSION: 1. Successful CT-guided abscess drainage. 2. 50 mL of purulent appearing opaque saenz foul-smelling fluid was sent for aerobic and anaerobic cultures. 3. The catheter will be managed by Dr. Douglass. Labs Labs: Laboratory Results - last 24 hr 09/28/25 09:05 Sodium 137 Potassium 4.1 Chloride 105 Carbon Dioxide 24 Anion Gap 8 BUN 13 Creatinine 1.45 H Estim Creat Clear Calc Not Reportable Estimated GFR 37 L Glucose 140 H Calcium 9.1 Total Bilirubin 0.7 AST 32 ALT 20 Alkaline Phosphatase 89 C-Reactive Protein 14.7 H Total Protein 6.8 Albumin 3.4 L Vancomycin Trough 24.7 H nothing new on cultures at this time
[2025-09-28] MEDS: ENOXAPARIN 40 MG/0.4 ML SYRINGE SUB-Q (13:42)
[2025-09-28 14:00] VITALS: BP 130/96; PULSE 84; RESP 16; TEMP 36.6; O2SAT 100
[2025-09-28] MEDS: ACETAMINOPHEN 325 MG TABLET 650 MG PO (18:18)
[2025-09-28 19:57] VITALS: BP 143/56; PULSE 79; RESP 16; TEMP 36.8; O2SAT 98
[2025-09-29 05:01] VITALS: BP 115/71; PULSE 81; RESP 16; TEMP 36.4; O2SAT 98
[2025-09-29] MEDS: BENZONATATE 100 MG CAPSULE PO (05:01)
[2025-09-29] MEDS: PIPERACILLIN/TAZOBACTAM SOD 3.375 GM in SODIUM CHLORIDE 0.9% IV 50 ML 100 ML IVPB ×2 (05:01→13:19)
[2025-09-29] MEDS: ACETAMINOPHEN 325 MG TABLET 650 MG PO ×3 (05:18→17:42)
[2025-09-29 05:53] LABS: Hematocrit 33.5 % (37.0-47.0); Hemoglobin 10.6 g/dL (12.0-15.0); Immature Granulocyte Percent A 0.8 % (0-0.5); Lymphocytes Absolute Auto 0.82 K/mm3 (0.9-3.2); Mean Corpuscular HGB Conc 31.6 g/dl (32-36); Mean Corpuscular Hemoglobin 30.1 pg (26-34); Mean Corpuscular Volume 95.2 fl (80-100); Nucleated Red Blood Cells Absolute Auto 0.000 K/mm3 (0.0-0.012); Nucleated Red Blood Cells Perc 0.0 % (0.0-0.2); Platelet Count Result 237 k/mm3 (150-375); Red Blood Count 3.52 M/mm3 (4.2-5.4); White Blood Count 9.5 K/mm3 (4.5-10.0)
[2025-09-29 06:05] LABS: Alanine Aminotransferase 17 U/L (6-35); Albumin Level 3.1 g/dL (3.5-5.1); Alkaline Phosphatase 79 U/L (38-126); Anion Gap 7 mmol/L (4-12); Aspartate Amino Transferase 27 U/L (14-36); Bilirubin,Total 0.6 mg/dL (0.2-1.3); Blood Urea Nitrogen 12 mg/dL (7-17); Calcium 8.8 mg/dL (8.4-10.2); Carbon Dioxide 23 mmol/L (22-30); Chloride 107 mmol/L (98-107); Estimated Glomerular Filt Rate 36; Glucose 102 mg/dL (65-110); Potassium 3.8 mmol/L (3.4-5.0); Sodium 137 mmol/L (137-145); Total Protein 6.3 g/dL (6.3-8.2)
[2025-09-29 06:09] LABS: CRP 8.6 mg/dL (<1.0)
[2025-09-29 06:17] LABS: Iron 60 ug/dL (37-170)
[2025-09-29 06:26] LABS: Percent Iron Saturation 37 % (20-50)
--- NOTE | 2025-09-29 06:56 | P.PNIM_ITS ---
Progress Note: A&P Assessment and Plan (1) SIRS (systemic inflammatory response syndrome): Code(s): R65.10 - Systemic inflammatory response syndrome (SIRS) of non-infectious origin without acute organ dysfunction Status: Acute Assessment and Plan: Patient met SIRS criteria due to heart rate (107-111) and WBC (18.3). - lactic acid: 1.0 - s/p 2L bolus in the ED -> 75 ml/hr x1 L - likely source: psoas abscess and uti - blood cultures drawn on 09/25: No growth 48 hours - UA concerning for infection. Urine culture:ecoli pansensitive - Viral PCR negative. CXR showed no acute process. Chest CTA negative for PE and acute process. - CT of the abdomen/pelvis (09/25): complex cystic mass within the left iliopsoas muscle with adjacent induration measuring 9.4 x 12.1 x 7.3 cm suggestive of an abscess. - Abscess culture: ecoli pansensitive Resolved. WBC WNL. Vitals stable. (2) Abscess: Code(s): L02.91 - Cutaneous abscess, unspecified Status: Acute Assessment and Plan: Meeting sepsis criteria as above. CT of the abdomen/pelvis (09/25): complex cystic mass within the left iliopsoas muscle with adjacent induration measuring 9.4 x 12.1 x 7.3 cm suggestive of an abscess. Antibiotics: Zosyn and vanc on 09/26, discontinued vancomycin on 09/29 Surgery consulted, appreciate recommendations s/p percutaneous drain with IR on 09/26 with foul smelling fluid source of the abscess is still unknown. Gram stain and cultures from drainage procedure: ecoli pansensitive Urology consulted, appreciate recommendations no urologic surgical intervention planned at this time Infectious disease consulted, appreciate recommendations WBC WNL. Drain in place with min serosanguinous output. Continue to monitor. (3) UTI (urinary tract infection): Qualifiers: Hematuria presence: without hematuria Urinary tract infection type: acute cystitis Qualified Code(s): N30.00 - Acute cystitis without hematuria Code(s): N39.0 - Urinary tract infection, site not specified Status: Acute Assessment and Plan: - UA concerning for infection - UC obtained on 09/25: ecoli pansensitive - previous micro reviewed 04/2024: ecoli pansensitive - started on zosyn and vanc for cocurrent abscess on 09/26, vancomycin discontinued on 09/29 (4) Acute kidney injury: Code(s): N17.9 - Acute kidney failure, unspecified Status: Acute Assessment and Plan: BUN/Cr WNL on admission, now uptrending to 12/1.46 on am labs Possibly antibiotic induced as patient was on vanc and zosyn Patient appears euvolemic Urine output WNL Avoid nephrotoxic medications Renally dose medication s Monitor CMP for renal function (5) Shortness of breath: Code(s): R06.02 - Shortness of breath Status: Acute Assessment and Plan: Patient initially presented here for shortness of breath with productive cough yielding clear mucus. No history of smoking. She reports symptoms have been ongoing for months. No current concern for pneumonia. Viral PCR negative on 09/25. CXR and CTA showed no acute process. O2 stats reviewed and remain stable Resolved. Denies SOB and cough. (6) Hypertension: Qualifiers: Hypertension type: primary hypertension Qualified Code(s): I10 - Essential (primary) hypertension Code(s): I10 - Essential (primary) hypertension Status: Acute Assessment and Plan: - chronic - Hold spironolactone, resume as appropriate following drain placement - Hydralazine p.r.n. in interim. - blood pressures reviewed and remains stable, continue to monitor Time Spent With Patient Time with patient: 25 - 35 minutes Subjective Date/time seen: 09/29/25 06:56 Interval history: Patient is pleasant sitting up comfortably on the side of the bed with family at bedside, she was also seen ambulating halls. She continues to endorse slight discomfort around the drain insertion site but otherwise has no complaints denying chest pain, shortness a breath, palpitations, nausea/vomiting, and abdominal pain. Review of Systems Review of Systems: All systems reviewed & are unremarkable except as noted in HPI and below Exam Narrative: AF HR 81 RR 16 Spo2 98 BP 115/71 General: female in no acute respiratory distress who is nontoxic appearing, sitting up on side of bed and ambulating the halls HEENT: Extraocular movement intact. Sclera clear and anicteric. No facial a symmetry. Chest: Lungs are clear to auscultation bilaterally. No wheezes or crackles. CV: Heart was regular rate and rhythm. Abd: Abdomen was soft. Nontender. Nondistended. Positive bowel sounds. Ext: No clubbing, cyanosis, or edema. DP pulses bilaterally. Neuro: Patient is alert. Speech is clear. Skin: Drain placed to left flank with no erythema or warmth, serosanguineous drainage Objective Data Vital Signs Vital Signs: Vital Signs - 24 hr 09/28/25 08:00 09/28/25 14:00 09/28/25 19:57 Temperature 97.8 F 98.2 F Pulse Rate 84 79 Respiratory Rate 16 16 Blood Pressure 130/96 H 143/56 H Pulse Oximetry 100 98 Oxygen Delivery Room Air 09/29/25 05:01 Temperature 97.6 F Pulse Rate 81 Respiratory Rate 16 Blood Pressure 115/71 Pulse Oximetry 98 Oxygen Delivery Intake/Output Intake/Output: Intake & Output 09/26/25 09/27/25 09/28/25 09/29/25 23:59 23:59 23:59 23:59 Intake Total 900 1902 1286 360 Output Total 252 205 833 700 Balance 648 1697 453 -340 Meds/Results Medications: Active Medications Generic Name Dose Route Start Last Admin Trade Name Freq PRN Reason Stop Dose Admin Acetaminophen 650 mg 09/25/25 21:30 09/29/25 05:18 Acetaminophen 325 Mg Tablet PO 650 mg Q6H PRN Administration Pain Rated 1-3, Fever Hydrocodone Bitart/Acetaminophen 1 tab 09/25/25 22:09 09/27/25 23:52 Hydrocodone/Acetaminophen (*Crx) 5-325 Mg Tablet PO 1 tab Q6H PRN Administration Pain Rated 4-6 Benzonatate 100 mg 09/25/25 18:02 09/29/25 05:01 Benzonatate 100 Mg Capsule PO 100 mg TID PRN Administration Cough Enoxaparin Sodium 40 mg 09/29/25 09:00 Enoxaparin 40 Mg/0.4 Ml Syringe SUB-Q DAILY SELVIN Fluticasone Propionate 2 spray 09/26/25 09:00 09/28/25 09:42 Fluticasone Propionate 0.05% Na Spr 16 Gm Btl (*Bkc) NASAL 2 spray QAM SELVIN Administration Guaifenesin 600 mg 09/25/25 21:00 09/28/25 20:38 Guaifenesin 12 Hr 600 Mg Tabcr PO 600 mg Q12HR SELVIN Administration Hydralazine HCl 10 mg 09/25/25 20:55 Hydralazine Hcl 20 Mg/Ml Vial IV PUSH Q8H PRN Blood Pressure - High, >180/90 Piperacillin Sod/Tazobactam 50 mls @ 100 mls/hr 09/26/25 00:00 09/29/25 05:01 Sod 3.375 gm/ Sodium Chloride IVPB 100 mls/hr Q6H SELVIN Administration Morphine Sulfate 2 mg 09/25/25 22:09 09/26/25 16:09 Morphine Sulfate (*Crx) 4 Mg/Ml Inj IV PUSH 2 mg Q4H PRN Administration Pain Rated 7-10 Prochlorperazine Edisylate 10 mg 09/26/25 09:28 09/27/25 17:48 Prochlorperazine Edisylate 10 Mg/2 Ml Vial IV PUSH 10 mg Q6H PRN Administration Nausea And Vomiting Saccharomyces Boulardii 250 mg 09/27/25 13:00 09/28/25 18:17 Saccharomyces Boulardii 250 Mg Capsule PO 250 mg TID SELVIN Administration Vancomycin HCl 1 each 09/28/25 09:58 Vancomycin For Acute Kidney Injury IVPB PRN PRN Vancomycin Protocol Radiology Results: ITS Impressions Chest X-Ray 09/25/25 15:00 IMPRESSION: 1. No focal acute process seen. Chest CTA 09/25/25 15:25 IMPRESSION: Negative for pulmonary embolism. No acute process Abdomen/Pelvis CT 09/25/25 16:02 IMPRESSION: Complex cystic mass within the left iliopsoas muscle with adjacent induration measuring 9.4 x 12.1 x 7.3 cm suggestive of an abscess. All CT scans at this facility are performed using low dose modulation techniques as appropriate to perform exam including the following: automated exposure control; use of iterative reconstruction technique; adjustment of the mA and/or kV according to patient size (this includes techniques or standardized protocols for targeted exams where dose is matched to indication/reason for exam). Catheter Placement CT 09/26/25 15:28 IMPRESSION: 1. Successful CT-guided abscess drainage. 2. 50 mL of purulent appearing opaque saenz foul-smelling fluid was sent for aerobic and anaerobic cultures. 3. The catheter will be managed by Dr. Douglass. Labs Labs: Laboratory Results - last 24 hr 09/28/25 09/29/25 09:05 05:30 WBC 9.5 RBC 3.52 L Hgb 10.6 L Hct 33.5 L MCV 95.2 MCH 30.1 MCHC 31.6 L RDW 14.0 Plt Count 237 MPV 9.3 Immature Gran % (Auto) 0.8 H Neut % (Auto) 81.7 H Lymph % (Auto) 8.6 L [place] % (Auto) 6.3 Eos % (Auto) 2.2 Baso % (Auto) 0.4 Lymph # (Auto) 0.82 L [place] # (Auto) 0.6 Eos # (Auto) 0.2 Baso # (Auto) 0.0 Abs Immat Gran (auto) 0.08 H Absolute Neuts (auto) 7.8 H Absolute Nucleated RBC 0.000 Nucleated RBC % 0.0 Sodium 137 137 Potassium 4.1 3.8 Chloride 105 107 Carbon Dioxide 24 23 Anion Gap 8 7 BUN 13 12 Creatinine 1.45 H 1.46 H Estim Creat Clear Calc Not Reportable Not Reportable Estimated GFR 37 L 36 L Glucose 140 H 102 Calcium 9.1 8.8 Iron 60 TIBC 163 L % Saturation 37 Total Bilirubin 0.7 0.6 AST 32 27 ALT 20 17 Alkaline Phosphatase 89 79 C-Reactive Protein 14.7 H 8.6 H Total Protein 6.8 6.3 Albumin 3.4 L 3.1 L Vancomycin Trough 24.7 H Random Vancomycin 14.7 Quality VTE Prophylaxis VTE prophylaxis: mechanical ordered
[2025-09-29 06:58] LABS: Ferritin 239.00 ng/mL (11.1-264)
[2025-09-29] MEDS: ENOXAPARIN 40 MG/0.4 ML SYRINGE SUB-Q (09:37)
[2025-09-29] MEDS: SACCHAROMYCES BOULARDII 250 MG CAPSULE PO ×3 (09:38→17:03)
[2025-09-29] MEDS: guaiFENesin 12 HR 600 MG TABCR PO ×2 (09:38→19:47)
[2025-09-29] MEDS: FLUTICASONE PROPIONATE 0.05% NA SPR 16 GM BTL (*BKC) 2 SPRAY NASAL (09:38)
--- NOTE | 2025-09-29 10:09 | P.PNGS_ITS ---
Progress Note: A&P Assessment and Plan (1) Psoas abscess, left: Code(s): K68.12 - Psoas muscle abscess Status: Acute Assessment and Plan: Percutaneous drain with moderate amount of serosanguineous fluid. No purulence noted. WBC remains normal at 9.5. Abscess cultures growing E coli, highly susceptible to antibiotics. Continue IV Zosyn. (2) UTI (urinary tract infection): Qualifiers: Hematuria presence: without hematuria Urinary tract infection type: acute cystitis Qualified Code(s): N30.00 - Acute cystitis without hematuria Code(s): N39.0 - Urinary tract infection, site not specified Status: Acute Assessment and Plan: Urine cultures grew E. coli. Continue IV Zosyn. (3) Hereditary hemochromatosis: Code(s): E83.110 - Hereditary hemochromatosis Status: Chronic Assessment and Plan: Was getting phlebotomy every 6-8 weeks in 2019. Nothing describing current management in the EHR. Plan Discussed patient case and plan of care with Dr. Douglass. Subjective Subjective Date/Time Seen: 09/29/25 10:09 Patient reports: no new complaints, feels better, voiding w/o difficulty, bowel movement, diarrhea and afebrile Interval history: Patient doing well today. Was able to walk the halls without difficulty. Exam Const: General: comfortable and no acute distress GI: Inspection: non-distended GI Palp: Yes Soft to palpation, Yes Tenderness to palpation present (GI) (mild left flank pain) and No Guarding due to palpation present (GI) Auscultation: normal bowel sounds Other: Percutaneous drain with moderate amount of serosanguineous fluid. Appears to be more bloody today, but patient states that she has been more active. Objective Data Vital Signs Vital Signs: Vital Signs - 24 hr 09/28/25 14:00 09/28/25 19:57 09/29/25 05:01 Temperature 97.8 F 98.2 F 97.6 F Pulse Rate 84 79 81 Respiratory Rate 16 16 16 Blood Pressure 130/96 H 143/56 H 115/71 Pulse Oximetry 100 98 98 Intake/Output Intake/Output: Intake & Output 09/26/25 09/27/25 09/28/25 09/29/25 23:59 23:59 23:59 23:59 Intake Total 900 1902 1286 480 Output Total 252 205 833 700 Balance 648 1077 453 -634 Meds/Results Medications: Active Medications Generic Name Dose Route Start Last Admin Trade Name Freq PRN Reason Stop Dose Admin Acetaminophen 650 mg 09/25/25 21:30 09/29/25 05:18 Acetaminophen 325 Mg Tablet PO 650 mg Q6H PRN Administration Pain Rated 1-3, Fever Hydrocodone Bitart/Acetaminophen 1 tab 09/25/25 22:09 09/27/25 23:52 Hydrocodone/Acetaminophen (*Crx) 5-325 Mg Tablet PO 1 tab Q6H PRN Administration Pain Rated 4-6 Benzonatate 100 mg 09/25/25 18:02 09/29/25 05:01 Benzonatate 100 Mg Capsule PO 100 mg TID PRN Administration Cough Enoxaparin Sodium 40 mg 09/29/25 09:00 09/29/25 09:37 Enoxaparin 40 Mg/0.4 Ml Syringe SUB-Q 40 mg DAILY SELVIN Administration Fluticasone Propionate 2 spray 09/26/25 09:00 09/29/25 09:38 Fluticasone Propionate 0.05% Na Spr 16 Gm Btl (*Bkc) NASAL 2 spray QAM SELVIN Administration Guaifenesin 600 mg 09/25/25 21:00 09/29/25 09:38 Guaifenesin 12 Hr 600 Mg Tabcr PO 600 mg Q12HR SELVIN Administration Hydralazine HCl 10 mg 09/25/25 20:55 Hydralazine Hcl 20 Mg/Ml Vial IV PUSH Q8H PRN Blood Pressure - High, >180/90 Piperacillin Sod/Tazobactam 50 mls @ 100 mls/hr 09/26/25 00:00 09/29/25 05:01 Sod 3.375 gm/ Sodium Chloride IVPB 100 mls/hr Q6H SELVIN Administration Morphine Sulfate 2 mg 09/25/25 22:09 09/26/25 16:09 Morphine Sulfate (*Crx) 4 Mg/Ml Inj IV PUSH 2 mg Q4H PRN Administration Pain Rated 7-10 Prochlorperazine Edisylate 10 mg 09/26/25 09:28 09/27/25 17:48 Prochlorperazine Edisylate 10 Mg/2 Ml Vial IV PUSH 10 mg Q6H PRN Administration Nausea And Vomiting Saccharomyces Boulardii 250 mg 09/27/25 13:00 09/29/25 09:38 Saccharomyces Boulardii 250 Mg Capsule PO 250 mg TID SELVIN Administration Radiology Results: ITS Impressions Chest X-Ray 09/25/25 15:00 IMPRESSION: 1. No focal acute process seen. Chest CTA 09/25/25 15:25 IMPRESSION: Negative for pulmonary embolism. No acute process Catheter Placement CT 09/26/25 15:28 IMPRESSION: 1. Successful CT-guided abscess drainage. 2. 50 mL of purulent appearing opaque saenz foul-smelling fluid was sent for aerobic and anaerobic cultures. 3. The catheter will be managed by Dr. Douglass. Abdomen/Pelvis CT 09/29/25 09:22 IMPRESSION: Directed noncontrast exam demonstrating interval placement of left percutaneous psoas/perinephric abscess drain with small amount of residual fluid. No other abscess. Labs Labs: Laboratory Results - last 24 hr 09/29/25 05:30 WBC 9.5 RBC 3.52 L Hgb 10.6 L Hct 33.5 L MCV 95.2 MCH 30.1 MCHC 31.6 L RDW 14.0 Plt Count 237 MPV 9.3 Immature Gran % (Auto) 0.8 H Neut % (Auto) 81.7 H Lymph % (Auto) 8.6 L [place] % (Auto) 6.3 Eos % (Auto) 2.2 Baso % (Auto) 0.4 Lymph # (Auto) 0.82 L [place] # (Auto) 0.6 Eos # (Auto) 0.2 Baso # (Auto) 0.0 Abs Immat Gran (auto) 0.08 H Absolute Neuts (auto) 7.8 H Absolute Nucleated RBC 0.000 Nucleated RBC % 0.0 Sodium 137 Potassium 3.8 Chloride 107 Carbon Dioxide 23 Anion Gap 7 BUN 12 Creatinine 1.46 H Estim Creat Clear Calc Not Reportable Estimated GFR 36 L Glucose 102 Calcium 8.8 Iron 60 TIBC 163 L % Saturation 37 Ferritin 239.00 Total Bilirubin 0.6 AST 27 ALT 17 Alkaline Phosphatase 79 C-Reactive Protein 8.6 H Total Protein 6.3 Albumin 3.1 L Random Vancomycin 14.7
--- NOTE | 2025-09-29 13:11 | WPDIDCN ---
Assessment and Plan Assessment and plan (1) Psoas abscess, left: Code(s): K68.12 - Psoas muscle abscess Status: Acute Assessment and Plan: See below Plan ASSESSMENT: 1. E.coli left iliopsoas abscess s/p percutaneous drainage (09/26/25) 2. E.coli bacteriuria 3. Acute leukocytosis- resolved 4. Acute kidney injury 5. Hereditary Hemochromatosis PLAN: -De-escalate Zosyn to Ceftriaxone 2g IV Q24hrs for up to 42 day course -Drain management as per surgical service -Follow CBC and renal function -Place PICC for outpatient IV antimicrobials -Orders for outpatient Ceftriaxone sent to patient care technician to arrange once patient is ready for discharge -Discussed with patient at bedside. All questions answered HPI Data of Consult Date/Time: 09/29/25 13:11 Requesting Physician: Timothy Hermosillo DO Primary Care Provider: Jes Rhoades, SPECTROGRAPH OPERATOR Consult Narrative Reason for consult: Left iliopsoas abscess Narrative: Jody Rodriguez is a 59 year old female with history of hemochromatosis requiring regular phlebotomy admitted with left flank pain, chills. CT chest/abdomen/pelvis notable for [id number] fluid collection suspicious for abscess. Patient underwent percutaneous drainage of fluid collection on 09/23/14 and noted to have purulent fluid drainage. Culture grew rojas-sensitive E.coli. Patient also noted to have urine culture growing E.coli as well. She reports no recent dysuria, surgical or endoscopic procedures Review of Systems Review of Systems: All systems reviewed & are unremarkable except as noted in HPI and below [facility] Past Medical History Medical History (Updated 09/29/25 @ 07:00 by Allyson Ledesma PA-C) Hereditary hemochromatosis History of postoperative nausea and vomiting Kidney stones History of colon polyps GERD (gastroesophageal reflux disease) Migraine Hypertension Surgical History Surgical History History of elbow surgery History of hysterectomy (1999) History of cholecystectomy Family History Family History Father Cerebrovascular accident Hypertension Sibling AIDS Depression Endometriosis Heart disease Mother Arthritis Social History Social History Smoking status: Never smoker Alcohol intake: never Substance use: never Substance use type: does not use Lack of Transportation: No Lack of Food: Never True Current Housing: I Have Housing Concerned About Future Housing: No Difficulty Paying Gas/Electric Bills: No Difficulty Paying for Meds: No Currently Unemployed: No Education: Trade/Vocational Certificate Difficulty w/ Childcare or Family Care: No Living arrangements: with family Spiritual care concerns: No Meds Home Medications and Allergies Home Medications ?Medication ?Instructions ?Recorded ?Confirmed ?Type aspirin 81 mg tablet 81 mg PO DAILY 10/22/21 09/25/25 History ergocalciferol (vitamin D2) 1,250 1,250 mcg PO WEEKLY 10/22/21 09/25/25 History mcg (50,000 unit) capsule spironolactone 50 mg tablet 50 mg PO DAILY 10/22/21 09/25/25 History turmeric 100 mg-rory 150 1 cap PO DAILY 10/22/21 09/25/25 History mg-olive 50 mg-oreg 150 mg-capryl capsule oxybutynin chloride 5 mg 5 mg PO DAILY 09/17/25 09/25/25 History tablet,extended release 24 hr Allergies Allergy/AdvReac Type Severity Reaction Status Date / Time No Known Allergies Allergy Verified 09/25/25 19:02 Vital Signs Vital Signs - 24 hr 09/28/25 14:00 09/28/25 19:57 09/29/25 05:01 Temperature 97.8 F 98.2 F 97.6 F Pulse Rate 84 79 81 Respiratory Rate 16 16 16 Blood Pressure 130/96 H 143/56 H 115/71 Pulse Oximetry 100 98 98 Oxygen Delivery 09/29/25 08:00 Temperature Pulse Rate Respiratory Rate Blood Pressure Pulse Oximetry Oxygen Delivery Room Air Exam Narrative: Gen: NAD Cor: no tachycardia PUlm:normal chest wall expansion, no tachypnea Abd: no distension Back: mild left CVA TTP Drain: serosanguinous output Results Labs 09/29/25 05:30 09/29/25 05:30 Labs: Short CBC 09/29/25 Range/Units 05:30 WBC 9.5 (4.5-10.0) K/mm3 Hgb 10.6 L (12.0-15.0) g/dL Hct 33.5 L (37.0-47.0) % Plt Count 237 (150-375) k/mm3 BMP 09/29/25 05:30 Sodium 137 Potassium 3.8 Chloride 107 Carbon Dioxide 23 BUN 12 Creatinine 1.46 H Glucose 102 Calcium 8.8 Liver Function 09/29/25 Range/Units 05:30 Total Bilirubin 0.6 (0.2-1.3) mg/dL AST 27 (14-36) U/L ALT 17 (6-35) U/L Alkaline Phosphatase 79 (38-126) U/L Albumin 3.1 L (3.5-5.1) g/dL
[2025-09-29 14:00] VITALS: BP 129/69; PULSE 81; RESP 14; TEMP 36.4; O2SAT 99
[2025-09-29] MEDS: cefTRIAXone 2 GM in SODIUM CHLORIDE 0.9% IV 100 ML 200 ML IVPB (17:43)
--- NOTE | 2025-09-29 17:55 | P.PNUR_ITS ---
Progress Note: A&P Assessment and Plan (1) Abscess: Code(s): L02.91 - Cutaneous abscess, unspecified Status: Acute (2) Psoas abscess, left: Code(s): K68.12 - Psoas muscle abscess Status: Acute Assessment and Plan: * Discussed with Dr. Douglass earlier today. Given proximity of this abscess to her lower pole left renal calyx and the presence of E coli in both urine and the abscess fluid will plan cystoscopy with retrograde pyelography to ensure no communication between the left renal collecting system and this abscess. Subjective Subjective Date/Time Seen: 09/29/25 17:55 Interval history: Comfortable, tolerating flank drain Review of Systems Review of Systems: All systems reviewed & are unremarkable except as noted in HPI and below Exam Const: General: no acute distress Resp: Effort & Inspection: normal respiratory effort GI: Inspection: non-distended GI Palp: No abdominal tenderness and No Guarding due to palpation present (GI) Auscultation: normal bowel sounds Objective Data Vital Signs Vital Signs: Vital Signs - 24 hr 09/28/25 19:57 09/29/25 05:01 09/29/25 08:00 Temperature 98.2 F 97.6 F Pulse Rate 79 81 Respiratory Rate 16 16 Blood Pressure 143/56 H 115/71 Pulse Oximetry 98 98 Oxygen Delivery Room Air 09/29/25 14:00 Temperature 97.6 F Pulse Rate 81 Respiratory Rate 14 Blood Pressure 129/69 Pulse Oximetry 99 Oxygen Delivery Intake/Output Intake/Output: Intake & Output 09/26/25 09/27/25 09/28/25 09/29/25 23:59 23:59 23:59 23:59 Intake Total 900 1902 1286 1200 Output Total 252 891 053 2649 Balance 648 1697 453 150 Meds/Results Medications: Active Medications Generic Name Dose Route Start Last Admin Trade Name Freq PRN Reason Stop Dose Admin Acetaminophen 650 mg 09/25/25 21:30 09/29/25 17:42 Acetaminophen 325 Mg Tablet PO 650 mg Q6H PRN Administration Pain Rated 1-3, Fever Hydrocodone Bitart/Acetaminophen 1 tab 09/25/25 22:09 09/27/25 23:52 Hydrocodone/Acetaminophen (*Crx) 5-325 Mg Tablet PO 1 tab Q6H PRN Administration Pain Rated 4-6 Benzonatate 100 mg 09/25/25 18:02 11/17/25 05:01 Benzonatate 100 Mg Capsule PO 100 mg TID PRN Administration Cough Enoxaparin Sodium 40 mg 09/29/25 09:00 09/29/25 09:37 Enoxaparin 40 Mg/0.4 Ml Syringe SUB-Q 40 mg DAILY SELVIN Administration Fluticasone Propionate 2 spray 09/26/25 09:00 09/29/25 09:38 Fluticasone Propionate 0.05% Na Spr 16 Gm Btl (*Bkc) NASAL 2 spray QAM SELVIN Administration Guaifenesin 600 mg 09/25/25 21:00 09/29/25 09:38 Guaifenesin 12 Hr 600 Mg Tabcr PO 600 mg Q12HR SELVIN Administration Hydralazine HCl 10 mg 09/25/25 20:55 Hydralazine Hcl 20 Mg/Ml Vial IV PUSH Q8H PRN Blood Pressure - High, >180/90 Ceftriaxone Sodium 2 gm/ 100 mls @ 200 mls/hr 09/29/25 14:30 Sodium Chloride IVPB Q12H SELVIN Ceftriaxone Sodium 2 gm/ 100 mls @ 200 mls/hr 09/29/25 18:00 09/29/25 17:43 Sodium Chloride IVPB 09/29/25 18:29 200 mls/hr ONCE ONE Administration Lidocaine 1 patch 09/30/25 09:00 Lidocaine 5% Patch TRANSDERM DAILY [facility] Miscellaneous Information 1 each 09/29/25 00:01 Ceftriaxone Q12hr Ordered, Consult In Progress Notes Is: De-Escalate Zosyn To Ceftriaxone XX 10/29/25 00:00 CLARIFY [facility] Morphine Sulfate 2 mg 09/25/25 22:09 09/26/25 16:09 Morphine Sulfate (*Crx) 4 Mg/Ml Inj IV PUSH 2 mg Q4H PRN Administration Pain Rated 7-10 Prochlorperazine Edisylate 10 mg 09/26/25 09:28 09/27/25 17:48 Prochlorperazine Edisylate 10 Mg/2 Ml Vial IV PUSH 10 mg Q6H PRN Administration Nausea And Vomiting Saccharomyces Boulardii 250 mg 09/27/25 13:00 09/29/25 17:03 Saccharomyces Boulardii 250 Mg Capsule PO 250 mg TID SELVIN Administration Radiology Results: ITS Impressions Chest X-Ray 09/25/25 15:00 IMPRESSION: 1. No focal acute process seen. Chest CTA 09/25/25 15:25 IMPRESSION: Negative for pulmonary embolism. No acute process Catheter Placement CT 09/26/25 15:28 IMPRESSION: 1. Successful CT-guided abscess drainage. 2. 50 mL of purulent appearing opaque saenz foul-smelling fluid was sent for aerobic and anaerobic cultures. 3. The catheter will be managed by Dr. Douglass. Abdomen/Pelvis CT 09/29/25 09:22 IMPRESSION: Directed noncontrast exam demonstrating interval placement of left percutaneous psoas/perinephric abscess drain with small amount of residual fluid. No other abscess. Labs Labs: Laboratory Results - last 24 hr 09/29/25 05:30 WBC 9.5 RBC 3.52 L Hgb 10.6 L Hct 33.5 L MCV 95.2 MCH 30.1 MCHC 31.6 L RDW 14.0 Plt Count 237 MPV 9.3 Immature Gran % (Auto) 0.8 H Neut % (Auto) 81.7 H Lymph % (Auto) 8.6 L [place] % (Auto) 6.3 Eos % (Auto) 2.2 Baso % (Auto) 0.4 Lymph # (Auto) 0.82 L [place] # (Auto) 0.6 Eos # (Auto) 0.2 Baso # (Auto) 0.0 Abs Immat Gran (auto) 0.08 H Absolute Neuts (auto) 7.8 H Absolute Nucleated RBC 0.000 Nucleated RBC % 0.0 Sodium 137 Potassium 3.8 Chloride 107 Carbon Dioxide 23 Anion Gap 7 BUN 12 Creatinine 1.46 H Estim Creat Clear Calc Not Reportable Estimated GFR 36 L Glucose 102 Calcium 8.8 Iron 60 TIBC 163 L % Saturation 37 Ferritin 239.00 Total Bilirubin 0.6 AST 27 ALT 17 Alkaline Phosphatase 79 C-Reactive Protein 8.6 H Total Protein 6.3 Albumin 3.1 L Random Vancomycin 14.7
[2025-09-29 21:24] VITALS: BP 134/78; PULSE 90; RESP 20; TEMP 36.4; O2SAT 94
[2025-09-30] VITALS (11 sets, daily range): BP systolic 81–132; BP diastolic 39–83; PULSE 80–99; RESP 12–20; TEMP 36.2–36.5; O2SAT 96–100
[2025-09-30 06:47] LABS: Hematocrit 33.4 % (37.0-47.0); Hemoglobin 10.7 g/dL (12.0-15.0); Immature Granulocyte Percent A 0.8 % (0-0.5); Lymphocytes Absolute Auto 0.83 K/mm3 (0.9-3.2); Mean Corpuscular HGB Conc 32.0 g/dl (32-36); Mean Corpuscular Hemoglobin 30.4 pg (26-34); Mean Corpuscular Volume 94.9 fl (80-100); Nucleated Red Blood Cells Absolute Auto 0.000 K/mm3 (0.0-0.012); Nucleated Red Blood Cells Perc 0.0 % (0.0-0.2); Platelet Count Result 217 k/mm3 (150-375); Red Blood Count 3.52 M/mm3 (4.2-5.4); White Blood Count 9.0 K/mm3 (4.5-10.0)
[2025-09-30] MEDS: BENZONATATE 100 MG CAPSULE PO (06:47)
[2025-09-30] MEDS: ACETAMINOPHEN 325 MG TABLET 650 MG PO ×2 (06:47→20:57)
[2025-09-30 07:16] LABS: Alanine Aminotransferase 17 U/L (6-35); Albumin Level 3.2 g/dL (3.5-5.1); Alkaline Phosphatase 88 U/L (38-126); Anion Gap 5 mmol/L (4-12); Aspartate Amino Transferase 25 U/L (14-36); Bilirubin,Total 0.3 mg/dL (0.2-1.3); Blood Urea Nitrogen 14 mg/dL (7-17); CRP 5.5 mg/dL (<1.0); Calcium 9.0 mg/dL (8.4-10.2); Carbon Dioxide 26 mmol/L (22-30); Chloride 108 mmol/L (98-107); Estimated Glomerular Filt Rate 39; Glucose 108 mg/dL (65-110); Potassium 4.4 mmol/L (3.4-5.0); Sodium 139 mmol/L (137-145); Total Protein 6.3 g/dL (6.3-8.2)
--- NOTE | 2025-09-30 07:54 | P.PNIM_ITS ---
Progress Note: A&P Assessment and Plan (1) SIRS (systemic inflammatory response syndrome): Code(s): R65.10 - Systemic inflammatory response syndrome (SIRS) of non-infectious origin without acute organ dysfunction Status: Acute Assessment and Plan: Patient met SIRS criteria due to heart rate (107-111) and WBC (18.3). - lactic acid: 1.0 - s/p 2L bolus in the ED -> 75 ml/hr x1 L - likely source: psoas abscess and uti - blood cultures drawn on 09/25: No growth 48 hours - UA concerning for infection. Urine culture:ecoli pansensitive - Viral PCR negative. CXR showed no acute process. Chest CTA negative for PE and acute process. - CT of the abdomen/pelvis (09/25): complex cystic mass within the left iliopsoas muscle with adjacent induration measuring 9.4 x 12.1 x 7.3 cm suggestive of an abscess. - Abscess culture: ecoli pansensitive Resolved. WBC WNL. Vitals stable. See plan below. (2) Abscess: Code(s): L02.91 - Cutaneous abscess, unspecified Status: Acute Assessment and Plan: Meeting sepsis criteria as above. CT of the abdomen/pelvis (09/25): complex cystic mass within the left iliopsoas muscle with adjacent induration measuring 9.4 x 12.1 x 7.3 cm suggestive of an abscess. Antibiotics: Zosyn and vanc on 09/26, discontinued vancomycin on 09/29 Surgery consulted, appreciate recommendations s/p percutaneous drain with IR on 09/26 with foul smelling fluid source of the abscess is still unknown. Gram stain and cultures from drainage procedure: eco pansensitive Urology consulted, appreciate recommendations Plan cystoscopy with retrograde pyelography Infectious disease consulted, appreciate recommendations De-escalate Zosyn to Ceftriaxone 2g IV Q24hrs for up to 42 day course, transitioned on 09/30. PICC line placed for long term care pharmacist IV antibiotics. Place PICC for outpatient IV antimicrobials Orders for outpatient Ceftriaxone sent to career coach to arrange once patient is ready for discharge WBC WNL. Drain in place with min serosanguinous output. Since both urine and abscess culture are growing ecoli urology plans to obtain a cystoscopy to assess for communication between sites. Continue to monitor. (3) UTI (urinary tract infection): Qualifiers: Hematuria presence: without hematuria Urinary tract infection type: acute cystitis Qualified Code(s): N30.00 - Acute cystitis without hematuria Code(s): N39.0 - Urinary tract infection, site not specified Status: Acute Assessment and Plan: - UA concerning for infection - UC obtained on 09/25: ecoli pansensitive - previous micro reviewed 04/2024: ecoli pansensitive - started on zosyn and vanc for cocurrent abscess on 09/26, vancomycin discontinued on 09/29. Zosyn transitioned to rocephin on 09/30. (4) Acute kidney injury: Code(s): N17.9 - Acute kidney failure, unspecified Status: Acute Assessment and Plan: BUN/Cr WNL on admission, now uptrending to 12/1.46 on am labs Possibly antibiotic induced as patient was on vanc and zosyn Patient appears euvolemic Urine output WNL Avoid nephrotoxic medications Renally dose medication s Monitor CMP for renal function BUN/Cr downtrending. Continue to monitor. (5) Shortness of breath: Code(s): R06.02 - Shortness of breath Status: Acute Assessment and Plan: Patient initially presented here for shortness of breath with productive cough yielding clear mucus. No history of smoking. She reports symptoms have been ongoing for months. No current concern for pneumonia. Viral PCR negative on 09/25. CXR and CTA showed no acute process. O2 stats reviewed and remain stable Resolved. Denies SOB and cough. (6) Hypertension: Qualifiers: Hypertension type: primary hypertension Qualified Code(s): I10 - Essential (primary) hypertension Code(s): I10 - Essential (primary) hypertension Status: Acute Assessment and Plan: - chronic - Hold spironolactone, resume as appropriate following drain placement - Hydralazine p.r.n. in interim. - blood pressures reviewed and remains stable, continue to monitor Time Spent With Patient Time with patient: 25 - 35 minutes Subjective Date/time seen: 09/30/25 07:54 Interval history: Patient is pleasant sitting up comfortably in bed. She continues to endorse slight discomfort to the back around the drain insertion site. She otherwise has no complaints denying chest pain, palpitations, shortness of breath, nausea/vomiting, abdominal pain, and UTI like symptoms. Patient is pleasant sitting up comfortably in bed. She continues to endorse slight discomfort around the drain insertion site. She otherwise has no complaints denying chest pain, palpitations, shortness of breath, nausea/vomiting and abdominal pain. Review of Systems Review of Systems: All systems reviewed & are unremarkable except as noted in HPI and below Exam Narrative: AF HR 82 RR 20 SPO2 96 BP 124/74 General: female in no acute respiratory distress who is nontoxic appearing, sitting up in bed. HEENT: Extraocular movement intact. Sclera clear and anicteric. No facial asymmetry. Chest: Lungs are clear to auscultation bilaterally. No wheezes or crackles. CV: Heart was regular rate and rhythm. Abd: Abdomen was soft. Nontender. Nondistended. Positive bowel sounds. Ext: No clubbing, cyanosis, or edema. DP pulses bilaterally. Picc line to right upper extremity. Neuro: Patient is alert. Speech is clear. Skin: Drain placed to left flank with no erythema or warmth, serosanguineous drainage Objective Data Vital Signs Vital Signs: Vital Signs - 24 hr 09/29/25 08:00 09/29/25 14:00 09/29/25 21:24 Temperature 97.6 F 97.6 F Pulse Rate 81 90 Respiratory Rate 14 20 Blood Pressure 129/69 134/78 Pulse Oximetry 99 94 Oxygen Delivery Room Air 09/30/25 04:29 Temperature 97.6 F Pulse Rate 82 Respiratory Rate 20 Blood Pressure 124/74 Pulse Oximetry 96 Oxygen Delivery Intake/Output Intake/Output: Intake & Output 09/27/25 09/28/25 09/29/25 09/30/25 23:59 23:59 23:59 23:59 Intake Total 1902 1286 1340 120 Output Total 638 339 7318 30 Balance 1697 453 290 90 Meds/Results Medications: Active Medications Generic Name Dose Route Start Last Admin Trade Name Freq PRN Reason Stop Dose Admin Acetaminophen 650 mg 09/25/25 21:30 09/30/25 06:47 Acetaminophen 325 Mg Tablet PO 650 mg Q6H PRN Administration Pain Rated 1-3, Fever Hydrocodone Bitart/Acetaminophen 1 tab 09/25/25 22:09 09/27/25 23:52 Hydrocodone/Acetaminophen (*Crx) 5-325 Mg Tablet PO 1 tab Q6H PRN Administration Pain Rated 4-6 Benzonatate 100 mg 09/25/25 18:02 09/30/25 06:47 Benzonatate 100 Mg Capsule PO 100 mg TID PRN Administration Cough Enoxaparin Sodium 40 mg 09/29/25 09:00 09/29/25 09:37 Enoxaparin 40 Mg/0.4 Ml Syringe SUB-Q 40 mg DAILY SELVIN Administration Fluticasone Propionate 2 spray 09/26/25 09:00 09/29/25 09:38 Fluticasone Propionate 0.05% Na Spr 16 Gm Btl (*Bkc) NASAL 2 spray QAM SELVIN Administration Guaifenesin 600 mg 09/25/25 21:00 09/29/25 19:47 Guaifenesin 12 Hr 600 Mg Tabcr PO 600 mg Q12HR SELVIN Administration Hydralazine HCl 10 mg 09/25/25 20:55 Hydralazine Hcl 20 Mg/Ml Vial IV PUSH Q8H PRN Blood Pressure - High, >180/90 Ceftriaxone Sodium 2 gm/ 100 mls @ 200 mls/hr 09/30/25 18:00 Sodium Chloride IVPB Q24H [facility] Lidocaine 1 patch 09/30/25 09:00 Lidocaine 5% Patch TRANSDERM DAILY [facility] Morphine Sulfate 2 mg 09/25/25 22:09 09/26/25 16:09 Morphine Sulfate (*Crx) 4 Mg/Ml Inj IV PUSH 2 mg Q4H PRN Administration Pain Rated 7-10 Prochlorperazine Edisylate 10 mg 09/26/25 09:28 09/27/25 17:48 Prochlorperazine Edisylate 10 Mg/2 Ml Vial IV PUSH 10 mg Q6H PRN Administration Nausea And Vomiting Saccharomyces Boulardii 250 mg 09/27/25 13:00 09/29/25 17:03 Saccharomyces Boulardii 250 Mg Capsule PO 250 mg TID SELVIN Administration Radiology Results: ITS Impressions Chest X-Ray 09/25/25 15:00 IMPRESSION: 1. No focal acute process seen. Chest CTA 09/25/25 15:25 IMPRESSION: Negative for pulmonary embolism. No acute process Catheter Placement CT 09/26/25 15:28 IMPRESSION: 1. Successful CT-guided abscess drainage. 2. 50 mL of purulent appearing opaque saenz foul-smelling fluid was sent for aerobic and anaerobic cultures. 3. The catheter will be managed by Dr. Douglass. Abdomen/Pelvis CT 09/29/25 09:22 IMPRESSION: Directed noncontrast exam demonstrating interval placement of left percutaneous psoas/perinephric abscess drain with small amount of residual fluid. No other abscess. Labs Labs: Laboratory Results - last 24 hr 09/29/25 09/30/25 17:07 06:42 WBC 9.0 RBC 3.52 L Hgb 10.7 L Hct 33.4 L MCV 94.9 MCH 30.4 MCHC 32.0 RDW 14.1 Plt Count 217 MPV 8.7 Immature Gran % (Auto) 0.8 H Neut % (Auto) 81.4 H Lymph % (Auto) 9.2 L [place] % (Auto) 5.9 Eos % (Auto) 2.3 Baso % (Auto) 0.4 Lymph # (Auto) 0.83 L [place] # (Auto) 0.5 Eos # (Auto) 0.2 Baso # (Auto) 0.0 Abs Immat Gran (auto) 0.07 H Absolute Neuts (auto) 7.3 H Absolute Nucleated RBC 0.000 Nucleated RBC % 0.0 Sodium 139 Potassium 4.4 Chloride 108 H Carbon Dioxide 26 Anion Gap 5 BUN 14 Creatinine 1.39 H Estim Creat Clear Calc Not Reportable Estimated GFR 39 L Glucose 108 Calcium 9.0 Total Bilirubin 0.3 AST 25 ALT 17 Alkaline Phosphatase 88 C-Reactive Protein 5.5 H Total Protein 6.3 Albumin 3.2 L Urine Creatinine < 3.2 Random Vancomycin 8.7 L Quality VTE Prophylaxis VTE prophylaxis: mechanical ordered and pharmacologic ordered
[2025-09-30] MEDS: LIDOCAINE 1% PF INJ 5 ML VIAL INFILTRATE (08:40)
--- NOTE | 2025-09-30 09:11 | P.PNGS_ITS ---
Progress Note: A&P Assessment and Plan (1) Psoas abscess, left: Code(s): K68.12 - Psoas muscle abscess Status: Acute Assessment and Plan: * S/p perc drain on 09/26/25. Abscess and urine cultures growing E coli. Continue IV antibiotics, ID is recommending transition to IV Ceftriaxone with up to a 42 day course. PICC line being placed today. Continue to monitor perc drain for now while undergoing further workup for source. (2) UTI (urinary tract infection): Qualifiers: Hematuria presence: without hematuria Urinary tract infection type: acute cystitis Qualified Code(s): N30.00 - Acute cystitis without hematuria Code(s): N39.0 - Urinary tract infection, site not specified Status: Acute Assessment and Plan: * Urine and abscess cultures growing E. coli. Continue IV antibiotics per ID. Abscess drainage also sent for urine creatinine, which was less than 3.2. Urology is planning to proceed with cystoscopy with retrograde pyelography today to further evaluate for a communication between the left renal collecting system and the abscess. (3) Hereditary hemochromatosis: Code(s): E83.110 - Hereditary hemochromatosis Status: Chronic Assessment and Plan: * Does not appear to need any treatment at this time Plan Discussed the patient's case, recommendations, and treatment with Dr. Douglass. Subjective Subjective Date/Time Seen: 09/30/25 09:11 Patient reports: no new complaints and afebrile Interval history: Patient NPO for cysto today. She denies any changes overnight. Perc drain with 80 cc out in past 24 hours. WBC count 9,000. She is being set up for a PICC line this morning as ID is recommending up to a 42 day course of IV antibiotics. Exam Const: General: comfortable and no acute distress Orientation/consciousness: patient oriented x3 GI: Inspection: non-distended, Pannus present and obesity GI Palp: Yes Soft to palpation, No Tenderness to palpation present (GI), No Guarding due to palpation present (GI) and No Rebound tenderness present Auscultation: normal bowel sounds Other: Left flank perc drain with scant serosanguineous drainage Objective Data Vital Signs Vital Signs: Vital Signs - 24 hr 09/29/25 14:00 09/29/25 21:24 09/30/25 04:29 Temperature 97.6 F 97.6 F 97.6 F Pulse Rate 81 90 82 Respiratory Rate 14 20 20 Blood Pressure 129/69 134/78 124/74 Pulse Oximetry 99 94 96 Intake/Output Intake/Output: Intake & Output 09/27/25 09/28/25 09/29/25 09/30/25 23:59 23:59 23:59 23:59 Intake Total 1902 1286 1340 120 Output Total 983 258 5094 30 Balance 1697 453 290 90 Meds/Results Medications: Active Medications Generic Name Dose Route Start Last Admin Trade Name Freq PRN Reason Stop Dose Admin Acetaminophen 650 mg 09/25/25 21:30 09/30/25 06:47 Acetaminophen 325 Mg Tablet PO 650 mg Q6H PRN Administration Pain Rated 1-3, Fever Hydrocodone Bitart/Acetaminophen 1 tab 09/25/25 22:09 09/27/25 23:52 Hydrocodone/Acetaminophen (*Crx) 5-325 Mg Tablet PO 1 tab Q6H PRN Administration Pain Rated 4-6 Benzonatate 100 mg 09/25/25 18:02 09/30/25 06:47 Benzonatate 100 Mg Capsule PO 100 mg TID PRN Administration Cough Enoxaparin Sodium 40 mg 09/29/25 09:00 09/29/25 09:37 Enoxaparin 40 Mg/0.4 Ml Syringe SUB-Q 40 mg DAILY SELVIN Administration Fluticasone Propionate 2 spray 09/26/25 09:00 09/29/25 09:38 Fluticasone Propionate 0.05% Na Spr 16 Gm Btl (*Bkc) NASAL 2 spray QAM SELVIN Administration Guaifenesin 600 mg 09/25/25 21:00 09/29/25 19:47 Guaifenesin 12 Hr 600 Mg Tabcr PO 600 mg Q12HR SELVIN Administration Hydralazine HCl 10 mg 09/25/25 20:55 Hydralazine Hcl 20 Mg/Ml Vial IV PUSH Q8H PRN Blood Pressure - High, >180/90 Ceftriaxone Sodium 2 gm/ 100 mls @ 200 mls/hr 09/30/25 18:00 Sodium Chloride IVPB Q24H [facility] Lidocaine 1 patch 09/30/25 09:00 Lidocaine 5% Patch TRANSDERM DAILY [facility] Morphine Sulfate 2 mg 09/25/25 22:09 09/26/25 16:09 Morphine Sulfate (*Crx) 4 Mg/Ml Inj IV PUSH 2 mg Q4H PRN Administration Pain Rated 7-10 Prochlorperazine Edisylate 10 mg 09/26/25 09:28 09/27/25 17:48 Prochlorperazine Edisylate 10 Mg/2 Ml Vial IV PUSH 10 mg Q6H PRN Administration Nausea And Vomiting Saccharomyces Boulardii 250 mg 09/27/25 13:00 09/29/25 17:03 Saccharomyces Boulardii 250 Mg Capsule PO 250 mg TID SELVIN Administration Radiology Results: ITS Impressions Chest X-Ray 09/25/25 15:00 IMPRESSION: 1. No focal acute process seen. Chest CTA 09/25/25 15:25 IMPRESSION: Negative for pulmonary embolism. No acute process Catheter Placement CT 09/26/25 15:28 IMPRESSION: 1. Successful CT-guided abscess drainage. 2. 50 mL of purulent appearing opaque saenz foul-smelling fluid was sent for aerobic and anaerobic cultures. 3. The catheter will be managed by Dr. Douglass. Abdomen/Pelvis CT 09/29/25 09:22 IMPRESSION: Directed noncontrast exam demonstrating interval placement of left percutaneous psoas/perinephric abscess drain with small amount of residual fluid . No other abscess. Labs Labs: Laboratory Results - last 24 hr 09/29/25 09/30/25 17:07 06:42 WBC 9.0 RBC 3.52 L Hgb 10.7 L Hct 33.4 L MCV 94.9 MCH 30.4 MCHC 32.0 RDW 14.1 Plt Count 217 MPV 8.7 Immature Gran % (Auto) 0.8 H Neut % (Auto) 81.4 H Lymph % (Auto) 9.2 L [place] % (Auto) 5.9 Eos % (Auto) 2.3 Baso % (Auto) 0.4 Lymph # (Auto) 0.83 L [place] # (Auto) 0.5 Eos # (Auto) 0.2 Baso # (Auto) 0.0 Abs Immat Gran (auto) 0.07 H Absolute Neuts (auto) 7.3 H Absolute Nucleated RBC 0.000 Nucleated RBC % 0.0 Sodium 139 Potassium 4.4 Chloride 108 H Carbon Dioxide 26 Anion Gap 5 BUN 14 Creatinine 1.39 H Estim Creat Clear Calc Not Reportable Estimated GFR 39 L Glucose 108 Calcium 9.0 Total Bilirubin 0.3 AST 25 ALT 17 Alkaline Phosphatase 88 C-Reactive Protein 5.5 H Total Protein 6.3 Albumin 3.2 L Urine Creatinine < 3.2 Random Vancomycin 8.7 L
[2025-09-30] MEDS: FLUTICASONE PROPIONATE 0.05% NA SPR 16 GM BTL (*BKC) 2 SPRAY NASAL (09:48)
[2025-09-30] MEDS: ENOXAPARIN 40 MG/0.4 ML SYRINGE SUB-Q (11:18)
--- NOTE | 2025-09-30 11:45 | WPDINFPN2 ---
Progress Note: A&P Assessment and Plan (1) Psoas abscess, left: Code(s): K68.12 - Psoas muscle abscess Status: Acute Assessment and Plan: See below Plan ASSESSMENT: 1. E.coli left iliopsoas abscess s/p percutaneous drainage (09/26/25) 2. E.coli bacteriuria; possible renal source of iliopsoas abscess 3. Acute leukocytosis- resolved 4. Acute kidney injury 5. Hereditary Hemochromatosis PLAN: -Continue Ceftriaxone 2g IV Q24hrs day 2 for up to 42 day course -Drain management as per surgical service -Urology service planning cystoscopy later today; await findings -Follow CBC and renal function -PICC in place for outpatient IV antimicrobials -Orders for outpatient Ceftriaxone sent to early breastfeeding care specialist on 09/30/25 to arrange once patient is ready for discharge -Discussed with patient and at bedside. All questions answered Subjective Date/time seen: 09/30/25 11:45 Interval history: Patient afebrile. RUE PICC in place. Urology service planning cystoscopy later today given suspicion for possible renal source of psoas abscess Review of Systems Review of Systems: All systems reviewed & are unremarkable except as noted in HPI and below Exam Narrative: Gen: NAD Cor: no tachycardia Pulm: normal chest expansion, no tachypnea Abd: non-distended Back: Percutaneous drain with serosanguinous output Lines: RUE PICC (09/30/25) intact Objective Data Vital Signs Vital Signs: Vital Signs - 24 hr 09/29/25 14:00 09/29/25 21:24 09/30/25 04:29 Temperature 97.6 F 97.6 F 97.6 F Pulse Rate 81 90 82 Respiratory Rate 14 20 20 Blood Pressure 129/69 134/78 124/74 Pulse Oximetry 99 94 96 Intake/Output Intake/Output: Intake & Output 09/27/25 09/28/25 09/29/25 09/30/25 23:59 23:59 23:59 23:59 Intake Total 1902 1286 1340 120 Output Total 139 701 6149 30 Balance 1697 453 290 90 Meds/Results Medications: Active Medications Generic Name Dose Route Start Last Admin Trade Name Freq PRN Reason Stop Dose Admin Acetaminophen 650 mg 09/25/25 21:30 09/30/25 06:47 Acetaminophen 325 Mg Tablet PO 650 mg Q6H PRN Administration Pain Rated 1-3, Fever Hydrocodone Bitart/Acetaminophen 1 tab 09/25/25 22:09 09/27/25 23:52 Hydrocodone/Acetaminophen (*Crx) 5-325 Mg Tablet PO 1 tab Q6H PRN Administration Pain Rated 4-6 Benzonatate 100 mg 09/25/25 18:02 09/30/25 06:47 Benzonatate 100 Mg Capsule PO 100 mg TID PRN Administration Cough Enoxaparin Sodium 40 mg 09/29/25 09:00 09/30/25 11:18 Enoxaparin 40 Mg/0.4 Ml Syringe SUB-Q 40 mg DAILY SELVIN Administration Fluticasone Propionate 2 spray 09/26/25 09:00 09/30/25 09:48 Fluticasone Propionate 0.05% Na Spr 16 Gm Btl (*Bkc) NASAL 2 spray QAM SELVIN Administration Guaifenesin 600 mg 09/25/25 21:00 09/30/25 09:40 Guaifenesin 12 Hr 600 Mg Tabcr PO Not Given Q12HR [facility] Hydralazine HCl 10 mg 09/25/25 20:55 Hydralazine Hcl 20 Mg/Ml Vial IV PUSH Q8H PRN Blood Pressure - High, >180/90 Ceftriaxone Sodium 2 gm/ 100 mls @ 200 mls/hr 09/30/25 18:00 Sodium Chloride IVPB Q24H [facility] Lidocaine 1 patch 09/30/25 09:00 09/30/25 09:40 Lidocaine 5% Patch TRANSDERM Not Given DAILY [facility] Morphine Sulfate 2 mg 09/25/25 22:09 09/26/25 16:09 Morphine Sulfate (*Crx) 4 Mg/Ml Inj IV PUSH 2 mg Q4H PRN Administration Pain Rated 7-10 Prochlorperazine Edisylate 10 mg 09/26/25 09:28 09/27/25 17:48 Prochlorperazine Edisylate 10 Mg/2 Ml Vial IV PUSH 10 mg Q6H PRN Administration Nausea And Vomiting Saccharomyces Boulardii 250 mg 09/27/25 13:00 09/30/25 09:40 Saccharomyces Boulardii 250 Mg Capsule PO Not Given TID SELVIN Sodium Chloride 10 ml 09/30/25 14:00 Central Line Flush IV PUSH Q8HR SELVIN Sodium Chloride 10 ml 09/30/25 09:35 Central Line Flush IV PUSH PRN PRN with TPN bag changes Sodium Chloride 20 ml 09/30/25 09:35 Central Line Flush IV PUSH PRN PRN after blood draws Radiology Results: ITS Impressions Chest X-Ray 09/25/25 15:00 IMPRESSION: 1. No focal acute process seen. Chest CTA 09/25/25 15:25 IMPRESSION: Negative for pulmonary embolism. No acute process Catheter Placement CT 09/26/25 15:28 IMPRESSION: 1. Successful CT-guided abscess drainage. 2. 50 mL of purulent appearing opaque saenz foul-smelling fluid was sent for aerobic and anaerobic cultures. 3. The catheter will be managed by Dr. Douglass. Abdomen/Pelvis CT 09/29/25 09:22 IMPRESSION: Directed noncontrast exam demonstrating interval placement of left percutaneous psoas/perinephric abscess drain with small amount of residual fluid. No other abscess. Labs Labs: Laboratory Results - last 24 hr 09/29/25 09/30/25 17:07 06:42 WBC 9.0 RBC 3.52 L Hgb 10.7 L Hct 33.4 L MCV 94.9 MCH 30.4 MCHC 32.0 RDW 14.1 Plt Count 217 MPV 8.7 Immature Gran % (Auto) 0.8 H Neut % (Auto) 81.4 H Lymph % (Auto) 9.2 L [place] % (Auto) 5.9 Eos % (Auto) 2.3 Baso % (Auto) 0.4 Lymph # (Auto) 0.83 L [place] # (Auto) 0.5 Eos # (Auto) 0.2 Baso # (Auto) 0.0 Abs Immat Gran (auto) 0.07 H Absolute Neuts (auto) 7.3 H Absolute Nucleated RBC 0.000 Nucleated RBC % 0.0 Sodium 139 Potassium 4.4 Chloride 108 H Carbon Dioxide 26 Anion Gap 5 BUN 14 Creatinine 1.39 H Estim Creat Clear Calc Not Reportable Estimated GFR 39 L Glucose 108 Calcium 9.0 Total Bilirubin 0.3 AST 25 ALT 17 Alkaline Phosphatase 88 C-Reactive Protein 5.5 H Total Protein 6.3 Albumin 3.2 L Urine Creatinine < 3.2 Random Vancomycin 8.7 L
--- NOTE | 2025-09-30 13:22 | PC.NURSE ---
On 09/30/25, the student, [Laura Vargas], provided care and completed [facility] documentation on this patient. I have reviewed the student's documentation and agree with the findings.
--- NOTE | 2025-09-30 13:37 | WPDUROPN2 ---
Progress Note: A&P Assessment and Plan (1) Psoas abscess, left: Code(s): K68.12 - Psoas muscle abscess Status: Acute Assessment and Plan: Urology team discussed with Dr. Douglass yesterday, who is requesting we performed left retrograde pyelogram in order to further assess whether not there is any communication between the left urinary collecting system and her abscess. Th patient's CT urogram from yesterday was reviewed which did not show evidence of contrast extravasation. If there is communication noted on retrograde pyelography, we will plan to place a left ureteral stent in order to divert any urine away from the abscess. If no evidence of such then we will not place a ureteral stent. To OR for cystoscopy, left retrograde pyelogram, possible left ureteral stent placement The risks, benefits, alternatives reviewed with the patient. She is amenable to proceed Remainder of management per primary Subjective Subjective Date/Time Seen: 09/30/25 13:37 Interval history: Patient has been NPO. Patient understands plan for OR today for retrograde pyelography to assess whether there is any communication of the abscess with the urinary tract. Exam Narrative: General: Alert, no acute distress Head: Normocephalic, atraumatic Eyes: Extraocular movements intact Neck: No JVD, trachea midline Respiratory: Symmetric chest rise, nonlabored breathing on room air CV: Normal rate, adequate peripheral perfusion Abdomen: Soft, nontender, nondistended Skin: Warm/dry Extremities: RUE PICC in place Neuro: No focal deficits Psych: Answers questions appropriately, appropriate mood Objective Data Vital Signs Vital Signs: Vital Signs - 24 hr 09/29/25 14:00 09/29/25 21:24 09/30/25 04:29 Temperature 36.4 C 36.4 C 36.4 C Pulse Rate 81 90 82 Respiratory Rate 14 20 20 Blood Pressure 129/69 134/78 124/74 Pulse Oximetry 99 94 96 Intake/Output Intake/Output: Intake & Output 09/27/25 09/28/25 09/29/25 09/30/25 23:59 23:59 23:59 23:59 Intake Total 1902 1286 1340 120 Output Total 004 679 6074 30 Balance 1697 453 290 90 Meds/Results Medications: Active Medications Generic Name Dose Route Start Last Admin Trade Name Freq PRN Reason Stop Dose Admin Acetaminophen 650 mg 09/25/25 21:30 11/18/25 06:47 Acetaminophen 325 Mg Tablet PO 650 mg Q6H PRN Administration Pain Rated 1-3, Fever Hydrocodone Bitart/Acetaminophen 1 tab 09/25/25 22:09 09/27/25 23:52 Hydrocodone/Acetaminophen (*Crx) 5-325 Mg Tablet PO 1 tab Q6H PRN Administration Pain Rated 4-6 Benzonatate 100 mg 09/25/25 18:02 09/30/25 06:47 Benzonatate 100 Mg Capsule PO 100 mg TID PRN Administration Cough Enoxaparin Sodium 40 mg 09/29/25 09:00 09/30/25 11:18 Enoxaparin 40 Mg/0.4 Ml Syringe SUB-Q 40 mg DAILY SELVIN Administration Fluticasone Propionate 2 spray 09/26/25 09:00 09/30/25 09:48 Fluticasone Propionate 0.05% Na Spr 16 Gm Btl (*Bkc) NASAL 2 spray QAM SELVIN Administration Guaifenesin 600 mg 09/25/25 21:00 09/30/25 09:40 Guaifenesin 12 Hr 600 Mg Tabcr PO Not Given Q12HR [facility] Hydralazine HCl 10 mg 09/25/25 20:55 Hydralazine Hcl 20 Mg/Ml Vial IV PUSH Q8H PRN Blood Pressure - High, >180/90 Ceftriaxone Sodium 2 gm/ 100 mls @ 200 mls/hr 09/30/25 18:00 Sodium Chloride IVPB Q24H [facility] Lidocaine 1 patch 09/30/25 09:00 09/30/25 09:40 Lidocaine 5% Patch TRANSDERM Not Given DAILY [facility] Morphine Sulfate 2 mg 09/25/25 22:09 09/26/25 16:09 Morphine Sulfate (*Crx) 4 Mg/Ml Inj IV PUSH 2 mg Q4H PRN Administration Pain Rated 7-10 Prochlorperazine Edisylate 10 mg 09/26/25 09:28 09/27/25 17:48 Prochlorperazine Edisylate 10 Mg/2 Ml Vial IV PUSH 10 mg Q6H PRN Administration Nausea And Vomiting Saccharomyces Boulardii 250 mg 09/27/25 13:00 09/30/25 13:00 Saccharomyces Boulardii 250 Mg Capsule PO Not Given TID SELVIN Sodium Chloride 10 ml 09/30/25 14:00 Central Line Flush IV PUSH Q8HR SELVIN Sodium Chloride 10 ml 09/30/25 09:35 Central Line Flush IV PUSH PRN PRN with TPN bag changes Sodium Chloride 20 ml 09/30/25 09:35 Central Line Flush IV PUSH PRN PRN after blood draws Radiology Results: ITS Impressions Chest X-Ray 09/25/25 15:00 IMPRESSION: 1. No focal acute process seen. Chest CTA 09/25/25 15:25 IMPRESSION: Negative for pulmonary embolism. No acute process Catheter Placement CT 09/26/25 15:28 IMPRESSION: 1. Successful CT-guided abscess drainage. 2. 50 mL of purulent appearing opaque saenz foul-smelling fluid was sent for aerobic and anaerobic cultures. 3. The catheter will be managed by Dr. Douglass. Abdomen/Pelvis CT 09/29/25 09:22 IMPRESSION: Directed noncontrast exam demonstrating interval placement of left percutaneous psoas/perinephric abscess drain with small amount of residual fluid. No other abscess. Labs Labs: Laboratory Results - last 24 hr 09/29/25 09/30/25 17:07 06:42 WBC 9.0 RBC 3.52 L Hgb 10.7 L Hct 33.4 L MCV 94.9 MCH 30.4 MCHC 32.0 RDW 14.1 Plt Count 217 MPV 8.7 Immature Gran % (Auto) 0.8 H Neut % (Auto) 81.4 H Lymph % (Auto) 9.2 L Sawyer % (Auto) 5.9 Eos % (Auto) 2.3 Baso % (Auto) 0.4 Lymph # (Auto) 0.83 L Sawyer # (Auto) 0.5 Eos # (Auto) 0.2 Baso # (Auto) 0.0 Abs Immat Gran (auto) 0.07 H Absolute Neuts (auto) 7.3 H Absolute Nucleated RBC 0.000 Nucleated RBC % 0.0 Sodium 139 Potassium 4.4 Chloride 108 H Carbon Dioxide 26 Anion Gap 5 BUN 14 Creatinine 1.39 H Estim Creat Clear Calc Not Reportable Estimated GFR 39 L Glucose 108 Calcium 9.0 Total Bilirubin 0.3 AST 25 ALT 17 Alkaline Phosphatase 88 C-Reactive Protein 5.5 H Total Protein 6.3 Albumin 3.2 L Urine Creatinine < 3.2 Random Vancomycin 8.7 L
--- NOTE | 2025-09-30 13:41 | WPDHPUPDATE1 ---
History and Physical Update Update Date/Time: 09/30/25 13:41 History and Physical has been reviewed, including an updated exam of the patient. There are NO changes in the patient's condition. Risks, benefits, and alternatives have been discussed and questions answered. Patient agrees to proceed with procedure.
--- NOTE | 2025-09-30 13:52 | PC.NURSE ---
To OR per wheelchair, IV LFA. Report given to Sita.
--- NOTE | 2025-09-30 14:34 | WPDANESEPPF ---
Anes - Initial Pre Proc Eval Procedure: Operation Date: 09/26/25 15:00 Proposed Procedures p Comp Tomography Guide Abscess Cath Place - Brady Hilliard MD Operation Date: 09/30/25 15:30 Proposed Procedures p Cystoscopy, Left Retrograde Pyelogram, Possible Left Stent Placement - Derian Angel MD Date/Time: 09/30/25 14:34 Surgeon: Timothy Hermosillo DO Pre Op Diagnosis: UTI/Abscess Patient Data Age: 59 Gender: F Height: 1.5 m Weight: 106.8 kg Last Vital Signs Temp 36.3 C L 09/30/25 14:10 Pulse 99 09/30/25 14:10 Resp 20 09/30/25 04:29 BP 113/68 09/30/25 14:10 Pulse Ox 99 09/30/25 14:10 O2 Del Method Room Air 09/30/25 14:10 Allergies Allergy/AdvReac Type Severity Reaction Status Date / Time No Known Allergies Allergy Verified 09/25/25 19:02 Home Medications ?Medication ?Instructions ?Recorded ?Confirmed ?Type aspirin 81 mg tablet 81 mg PO DAILY 10/22/21 09/25/25 History ergocalciferol (vitamin D2) 1,250 1,250 mcg PO WEEKLY 10/22/21 09/25/25 History mcg (50,000 unit) capsule spironolactone 50 mg tablet 50 mg PO DAILY 10/22/21 09/25/25 History turmeric 100 mg-rory 150 1 cap PO DAILY 10/22/21 09/25/25 History mg-olive 50 mg-oreg 150 mg-capryl capsule oxybutynin chloride 5 mg 5 mg PO DAILY 09/17/25 09/25/25 History tablet,extended release 24 hr Laboratory Tests 09/29/25 09/30/25 17:07 06:42 WBC 9.0 K/mm3 (4.5-10.0) RBC 3.52 L M/mm3 (4.2-5.4) Hgb 10.7 L g/dL (12.0-15.0) Hct 33.4 L % (37.0-47.0) MCV 94.9 fl (80-100) MCH 30.4 pg (26-34) MCHC 32.0 g/dl (32-36) RDW 14.1 % (11.5-14.5) Plt Count 217 k/mm3 (150-375) MPV 8.7 fl (7.4-10.4) Immature Gran % (Auto) 0.8 H % (0-0.5) Neut % (Auto) 81.4 H % (45.5-73.1) Lymph % (Auto) 9.2 L % (18.3-44.2) [place] % (Auto) 5.9 % (2.6-8.5) Eos % (Auto) 2.3 % (0-4.4) Baso % (Auto) 0.4 % (0.2-1.2) Lymph # (Auto) 0.83 L K/mm3 (0.9-3.2) [place] # (Auto) 0.5 K/mm3 (0.1-0.6) Eos # (Auto) 0.2 K/mm3 (0-0.3) Baso # (Auto) 0.0 K/mm3 (0.0-0.1) Abs Immat Gran (auto) 0.07 H K/mm3 (0.00-0.031) Absolute Neuts (auto) 7.3 H K/mm3 (1.3-6.7) Absolute Nucleated RBC 0.000 K/mm3 (0.0-0.012) Nucleated RBC % 0.0 % (0.0-0.2) Sodium 139 mmol/L (137-145) Potassium 4.4 mmol/L (3.4-5.0) Chloride 108 H mmol/L (98-107) Carbon Dioxide 26 mmol/L (22-30) Anion Gap 5 mmol/L (4-12) BUN 14 mg/dL (7-17) Creatinine 1.39 H mg/dL (0.7-1.0) Estim Creat Clear Calc Not Reportable Estimated GFR 39 L (59 - ) Glucose 108 mg/dL (65-110) Calcium 9.0 mg/dL (8.4-10.2) Total Bilirubin 0.3 mg/dL (0.2-1.3) AST 25 U/L (14-36) ALT 17 U/L (6-35) Alkaline Phosphatase 88 U/L (38-126) C-Reactive Protein 5.5 H mg/dL (<1.0) Total Protein 6.3 g/dL (6.3-8.2) Albumin 3.2 L g/dL (3.5-5.1) Urine Creatinine < 3.2 mg/dL Random Vancomycin 8.7 L ug/mL (10-20) Patient hx anesthesia problems: none Family hx anesthesia problems: none Results Review: All pre-operative results and documents have been reviewed as part of the pre-operative evaluation. [facility] Past Medical History Medical History (Updated 09/29/25 @ 07:00 by Allyson Ledesma PA-C) Hereditary hemochromatosis History of postoperative nausea and vomiting Kidney stones History of colon polyps GERD (gastroesophageal reflux disease) Migraine Hypertension Surgical History Surgical History History of elbow surgery History of hysterectomy (1999) History of cholecystectomy Family History Family History Father Cerebrovascular accident Hypertension Sibling AIDS Depression Endometriosis Heart disease Mother Arthritis Social History Social History Smoking status: Never smoker Alcohol intake: never Substance use: never Substance use type: does not use Lack of Transportation: No Lack of Food: Never True Current Housing: I Have Housing Concerned About Future Housing: No Difficulty Paying Gas/Electric Bills: No Difficulty Paying for Meds: No Currently Unemployed: No Education: Trade/Vocational Certificate Difficulty w/ Childcare or Family Care: No Living arrangements: with family Spiritual care concerns: No Anes - Eval Final PreProcedure Day of Procedure 09/30/25 14:34 Patient weight: morbidly obese Heart: regular rate and rhythm Lungs: normal air movement Airway: Mallampati scale class II Neurological: alert and oriented Last oral intake: >/= 8 hours ASA classification: III Emergent: no Anesthetic plan: proceed Anesthesia type and monitoring: general LMA and standard monitoring Results Review: All pre-operative results and documents have been reviewed as part of the pre-operative evaluation. Informed Consent: The patient's anesthetic plan and its attendant risks and benefits were discussed with the patient/family/POA. Questions were solicited and answers provided to the satisfaction of the patient/family/POA.
[2025-09-30] MEDS: LACTATED RINGERS 1,000 ML 30 ML IV CONT (14:46)
--- NOTE | 2025-09-30 15:11 | P.OP_ITS ---
Procedure Note - Detailed Date of Procedure 09/30/25 Pre-op Diagnosis Psoas muscle abscess, urinary tract infection Post-op Diagnosis Same Procedure Performed 1. Cystoscopy 2. Left retrograde pyelogram with intraoperative interpretation Surgeon Derian Angel MD Anesthesia MAC Findings 1. Cystourethroscopy revealed orthotopic ureteral orifices bilaterally with cystitis cystica along the trigone of the bladder, but no suspicious lesions, tumors, active bleeding, or stones in the lower urinary tract . 2. Left retrograde pyelogram using a 50 50 mixture of contrast and saline showed no hydroureteronephrosis, contrast extravasation, or filling defects. Afterwards, excellent drainage of contrast noted from the left collecting system. For this reason I elected not to place a left ureteral stent. Description of Procedure After informed consent was obtained, the patient was brought back to the operating theatre and placed in the supine position on the operating table. Pre- operative antibiotics were confirmed to have been administered. Anesthesia was induced. The patient was moved into the dorsal lithotomy position and prepped and draped in the standard sterile fashion for an endoscopic case. All pressure points were padded. Bilateral sequential compression devices were on and noted to be functioning. A formal timeout was performed with Dr. Angel in attendance to confirm the correct patient, site/laterality, and procedure and all were in agreement to proceed. To begin with, I atraumatically advanced a lubricated 22-Portuguese rigid cystoscope transurethrally into the patient's bladder. Pancystoscopy was performed with findings as noted above. Attention was then turned to the left ureteral orifice, which was gently cannulated with a Sensor wire which was advanced up to the level of the left distal ureter under fluoroscopy. Over top of the wire, a 5- Portuguese open ended catheter was advanced to the level of the distal ureter. The wire was removed keeping the open-ended catheter in place and a left retrograde pyelogram was performed using a 50:50 mixture of saline and contrast with findings as noted above. I then removed the open-ended catheter and observed the left ureteral orifice, which had prompt drainage of contrast. I then drained the patient's bladder and removed the cystoscope and instilled Urojet lidocaine jelly per the patient's urethra. This essentially concluded the case. At the conclusion of the case all sponge, instrument, and sharp counts were correct x 2. The patient was then awoken from anesthesia and taken to the recovery room in stable condition. The patient tolerated the procedure well and there were no immediate complications noted. Disposition: The patient will be monitored in the PACU and be transferred back her hospital room after clearing PACU protocol. The patient's was provided with an update following procedure all questions were answered to his satisfaction at the conclusion of our discussion. Urine Output 300
--- NOTE | 2025-09-30 16:10 | PC.NURSE ---
Returned from OR per anselmo. Report received from Izabella.
[2025-09-30] MEDS: SACCHAROMYCES BOULARDII 250 MG CAPSULE PO (16:21)
[2025-09-30] MEDS: CENTRAL LINE FLUSH 10 ML IV PUSH ×2 (16:21→20:57)
[2025-09-30] MEDS: cefTRIAXone 2 GM in SODIUM CHLORIDE 0.9% IV 100 ML 200 ML IVPB (17:10)
[2025-09-30] MEDS: guaiFENesin 12 HR 600 MG TABCR PO (20:57)
[2025-10-01 00:21] VITALS: BP 120/70; PULSE 83; RESP 16; TEMP 36.4; O2SAT 96
[2025-10-01] MEDS: BENZONATATE 100 MG CAPSULE PO ×2 (00:26→09:25)
[2025-10-01 05:01] VITALS: BP 132/75; PULSE 92; RESP 16; TEMP 36.6; O2SAT 97
[2025-10-01 05:10] LABS: Hematocrit 35.2 % (37.0-47.0); Hemoglobin 11.1 g/dL (12.0-15.0); Immature Granulocyte Percent A 1.0 % (0-0.5); Lymphocytes Absolute Auto 1.19 K/mm3 (0.9-3.2); Mean Corpuscular HGB Conc 31.5 g/dl (32-36); Mean Corpuscular Hemoglobin 30.1 pg (26-34); Mean Corpuscular Volume 95.4 fl (80-100); Nucleated Red Blood Cells Absolute Auto 0.000 K/mm3 (0.0-0.012); Nucleated Red Blood Cells Perc 0.0 % (0.0-0.2); Platelet Count Result 223 k/mm3 (150-375); Red Blood Count 3.69 M/mm3 (4.2-5.4); White Blood Count 6.9 K/mm3 (4.5-10.0)
[2025-10-01 05:21] LABS: Alanine Aminotransferase 19 U/L (6-35); Albumin Level 3.4 g/dL (3.5-5.1); Alkaline Phosphatase 86 U/L (38-126); Anion Gap 5 mmol/L (4-12); Aspartate Amino Transferase 27 U/L (14-36); Bilirubin,Total 0.5 mg/dL (0.2-1.3); Blood Urea Nitrogen 14 mg/dL (7-17); Calcium 9.2 mg/dL (8.4-10.2); Carbon Dioxide 29 mmol/L (22-30); Chloride 104 mmol/L (98-107); Estimated Glomerular Filt Rate 39; Glucose 91 mg/dL (65-110); Potassium 4.4 mmol/L (3.4-5.0); Sodium 138 mmol/L (137-145); Total Protein 6.6 g/dL (6.3-8.2)
[2025-10-01] MEDS: CENTRAL LINE FLUSH 10 ML IV PUSH (06:08)
--- NOTE | 2025-10-01 08:19 | PM.IMPN ---
Progress Note: A&P Assessment and Plan (1) SIRS (systemic inflammatory response syndrome): Code(s): R65.10 - Systemic inflammatory response syndrome (SIRS) of non-infectious origin without acute organ dysfunction Status: Acute Assessment and Plan: Patient met SIRS criteria due to heart rate (107-111) and WBC (18.3). - lactic acid: 1.0 - s/p 2L bolus in the ED -> 75 ml/hr x1 L - likely source: psoas abscess and uti - blood cultures drawn on 09/25: No growth 48 hours - UA concerning for infection. Urine culture:ecoli pansensitive - Viral PCR negative. CXR showed no acute process. Chest CTA negative for PE and acute process. - CT of the abdomen/pelvis (09/25): complex cystic mass within the left iliopsoas muscle with adjacent induration measuring 9.4 x 12.1 x 7.3 cm suggestive of an abscess. - Abscess culture: ecoli pansensitive Resolved. WBC WNL. Vitals stable. See plan below. (2) Abscess: Code(s): L02.91 - Cutaneous abscess, unspecified Status: Acute Assessment and Plan: Meeting sepsis criteria as above. CT of the abdomen/pelvis (09/25): complex cystic mass within the left iliopsoas muscle with adjacent induration measuring 9.4 x 12.1 x 7.3 cm suggestive of an abscess. Antibiotics: Zosyn and vanc on 09/26, discontinued vancomycin on 09/29 Surgery consulted, appreciate recommendations s/p percutaneous drain with IR on 09/26 with foul smelling fluid source of the abscess is still unknown. Gram stain and cultures from drainage procedure: eco pansensitive Urology consulted, appreciate recommendations Plan cystoscopy with retrograde pyelography Infectious disease consulted, appreciate recommendations De-escalate Zosyn to Ceftriaxone 2g IV Q24hrs for up to 42 day course, transitioned on 09/30. 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 Place PICC for outpatient IV antimicrobials Orders for outpatient Ceftriaxone sent to physician primary care sports medicine to arrange once patient is ready for discharge WBC WNL. Drain in place with min serosanguinous output. Since both urine and abscess culture are growing ecoli urology plans to obtain a cystoscopy to assess for communication between sites. Continue to monitor. (3) UTI (urinary tract infection): Qualifiers: Hematuria presence: without hematuria Urinary tract infection type: acute cystitis Qualified Code(s): N30.00 - Acute cystitis without hematuria Code(s): N39.0 - Urinary tract infection, site not specified Status: Acute Assessment and Plan: - UA concerning for infection - UC obtained on 09/25: ecoli pansensitive - previous micro reviewed 04/2024: ecoli pansensitive - started on zosyn and vanc for cocurrent abscess on 09/26, vancomycin discontinued on 09/29. Zosyn transitioned to rocephin on 09/30. (4) Acute kidney injury: Code(s): N17.9 - Acute kidney failure, unspecified Status: Acute Assessment and Plan: BUN/Cr WNL on admission, now uptrending to 12/1.46 on am labs Possibly antibiotic induced as patient was on vanc and zosyn Patient appears euvolemic Urine output WNL Avoid nephrotoxic medications Renally dose medication s Monitor CMP for renal function BUN/Cr downtrending. Continue to monitor. (5) Shortness of breath: Code(s): R06.02 - Shortness of breath Status: Acute Assessment and Plan: Patient initially presented here for shortness of breath with productive cough yielding clear mucus. No history of smoking. She reports symptoms have been ongoing for months. No current concern for pneumonia. Viral PCR negative on 09/25. CXR and CTA showed no acute process. O2 stats reviewed and remain stable Resolved. Denies SOB and cough. (6) Hypertension: Qualifiers: Hypertension type: primary hypertension Qualified Code(s): I10 - Essential (primary) hypertension Code(s): I10 - Essential (primary) hypertension Status: Acute Assessment and Plan: - chronic - Hold spironolactone, resume as appropriate following drain placement - Hydralazine p.r.n. in interim. - blood pressures reviewed and remains stable, continue to monitor Subjective Date/time seen: 10/01/25 08:19 Interval history: Patient has been NPO. Patient understands plan for OR today for retrograde pyelography to assess whether there is any communication of the abscess with the urinary tract. Review of Systems Review of Systems: All systems reviewed & are unremarkable except as noted in HPI and below Exam Narrative: AF HR 82 RR 20 SPO2 96 BP 124/74 General: female in no acute respiratory distress who is nontoxic appearing, sitting up in bed. HEENT: Extraocular movement intact. Sclera clear and anicteric. No facial asymmetry. Chest: Lungs are clear to auscultation bilaterally. No wheezes or crackles. CV: Heart was regular rate and rhythm. Abd: Abdomen was soft. Nontender. Nondistended. Positive bowel sounds. Ext: No clubbing, cyanosis, or edema. DP pulses bilaterally. Picc line to right upper extremity. Neuro: Patient is alert. Speech is clear. Skin: Drain placed to left flank with no erythema or warmth, serosanguineous drainage Const: General: comfortable and no acute distress Other: , female, nontoxic appearance, obese body habitus HENMT: Face/Nose/Sinus: Normal nares present Mouth: Yes moist mucous membranes Eyes: General: appearance normal, both eyes and all related structures Sclera: sclerae normal Pupils: Equal, round and reactive pupils present EOM: EOMs intact bilaterally Resp: Effort & Inspection: normal respiratory effort Auscultation: clear to auscultation bilaterally Cardio: Rate: regular rate Rhythm: regular rhythm Other: S1-S2 present without murmur, rub, ectopy GI: Other: Abdomen soft, nondistended, nontender. Normoactive bowel sounds in all quadrants. : Other: Mild left flank tenderness Skin: General skin exam: normal color and no rashes or lesions noted Wounds: no wounds Neuro: Cranial nerves: Yes Equal, round and reactive pupils present Speech: normal speech Motor exam (neuro): 5/5 motor strength present throughout Sensory Exam: normal sensation Other: A&O x4 Extrem: General: normal to inspection Psych: Mental Status: mental status grossly normal Affect: normal affect Other: Good insight and judgment, pleasant Objective Data Vital Signs Vital Signs: Vital Signs - 24 hr 09/30/25 14:10 09/30/25 15:10 09/30/25 15:25 Temperature 97.4 F L 97.1 F L Pulse Rate 99 85 87 Respiratory Rate 12 14 Blood Pressure 113/68 81/39 L 102/56 L Pulse Oximetry 99 100 97 Oxygen Delivery Room Air Room Air Room Air 09/30/25 15:40 09/30/25 15:55 09/30/25 16:15 Temperature 97.7 F Pulse Rate 88 80 80 Respiratory Rate 15 18 16 Blood Pressure 104/47 L 96/83 L 130/74 Pulse Oximetry 99 98 98 Oxygen Delivery Room Air Room Air 09/30/25 16:30 09/30/25 17:00 09/30/25 18:00 Temperature 97.7 F 97.7 F 97.7 F Pulse Rate 81 92 99 Respiratory Rate 16 17 17 Blood Pressure 113/72 132/77 118/63 Pulse Oximetry 100 100 100 Oxygen Delivery 09/30/25 20:31 10/01/25 00:21 10/01/25 05:01 Temperature 97.6 F 97.6 F 97.8 F Pulse Rate 90 83 92 Respiratory Rate 16 16 16 Blood Pressure 127/72 120/70 132/75 Pulse Oximetry 98 96 97 Oxygen Delivery Intake/Output Intake/Output: Intake & Output 09/28/25 09/29/25 09/30/25 10/01/25 23:59 23:59 23:59 23:59 Intake Total 1286 1340 750 350 Output Total 833 1050 330 15 Balance 453 290 420 335 Meds/Results Medications: Active Medications Generic Name Dose Route Start Last Admin Trade Name Freq PRN Reason Stop Dose Admin Acetaminophen 650 mg 09/25/25 21:30 09/30/25 20:57 Acetaminophen 325 Mg Tablet PO 650 mg Q6H PRN Administration Pain Rated 1-3, Fever Hydrocodone Bitart/Acetaminophen 1 tab 09/25/25 22:09 09/27/25 23:52 Hydrocodone/Acetaminophen (*Crx) 5-325 Mg Tablet PO 1 tab Q6H PRN Administration Pain Rated 4-6 Benzonatate 100 mg 09/25/25 18:02 10/01/25 00:26 Benzonatate 100 Mg Capsule PO 100 mg TID PRN Administration Cough Enoxaparin Sodium 40 mg 09/29/25 09:00 09/30/25 11:18 Enoxaparin 40 Mg/0.4 Ml Syringe SUB-Q 40 mg DAILY SELVIN Administration Fluticasone Propionate 2 spray 09/26/25 09:00 09/30/25 09:48 Fluticasone Propionate 0.05% Na Spr 16 Gm Btl (*Bkc) NASAL 2 spray QAM SELVIN Administration Guaifenesin 600 mg 09/25/25 21:00 09/30/25 20:57 Guaifenesin 12 Hr 600 Mg Tabcr PO 600 mg Q12HR SELVIN Administration Hydralazine HCl 10 mg 09/25/25 20:55 Hydralazine Hcl 20 Mg/Ml Vial IV PUSH Q8H PRN Blood Pressure - High, >180/90 Ceftriaxone Sodium 2 gm/ 100 mls @ 200 mls/hr 09/30/25 18:00 09/30/25 17:40 Sodium Chloride IVPB Infused Q24H SELVIN Infusion Lidocaine 1 patch 09/30/25 09:00 09/30/25 09:40 Lidocaine 5% Patch TRANSDERM Not Given DAILY [facility] Morphine Sulfate 2 mg 09/25/25 22:09 09/26/25 16:09 Morphine Sulfate (*Crx) 4 Mg/Ml Inj IV PUSH 2 mg Q4H PRN Administration Pain Rated 7-10 Prochlorperazine Edisylate 10 mg 09/26/25 09:28 09/27/25 17:48 Prochlorperazine Edisylate 10 Mg/2 Ml Vial IV PUSH 10 mg Q6H PRN Administration Nausea And Vomiting Saccharomyces Boulardii 250 mg 09/27/25 13:00 09/30/25 16:21 Saccharomyces Boulardii 250 Mg Capsule PO 250 mg TID SELVIN Administration Sodium Chloride 10 ml 09/30/25 14:00 10/01/25 06:08 Central Line Flush IV PUSH 10 ml Q8HR SELVIN Administration Sodium Chloride 10 ml 09/30/25 09:35 Central Line Flush IV PUSH PRN PRN with TPN bag changes Sodium Chloride 20 ml 09/30/25 09:35 Central Line Flush IV PUSH PRN PRN after blood draws Radiology Results: ITS Impressions Chest X-Ray 09/25/25 15:00 IMPRESSION: 1. No focal acute process seen. Chest CTA 09/25/25 15:25 IMPRESSION: Negative for pulmonary embolism. No acute process Catheter Placement CT 09/26/25 15:28 IMPRESSION: 1. Successful CT-guided abscess drainage. 2. 50 mL of purulent appearing opaque saenz foul-smelling fluid was sent for aerobic and anaerobic cultures. 3. The catheter will be managed by Dr. Douglass. Abdomen/Pelvis CT 09/29/25 09:22 IMPRESSION: Directed noncontrast exam demonstrating interval placement of left percutaneous psoas/perinephric abscess drain with small amount of residual fluid. No other abscess. Retrograde Pyelogram 09/30/25 16:24 IMPRESSION: No discrete filling defect within the left collecting system or ureter; no extravasation of contrast seen. ADDENDUM: 09/30/25 3194 NOTE: No radiologist present for this procedure. See procedure/operative notes for complete evaluation. Labs Labs: Laboratory Results - last 24 hr 10/01/25 04:55 WBC 6.9 RBC 3.69 L Hgb 11.1 L Hct 35.2 L MCV 95.4 MCH 30.1 MCHC 31.5 L RDW 14.2 Plt Count 223 MPV 8.7 Immature Gran % (Auto) 1.0 H Neut % (Auto) 72.3 Lymph % (Auto) 17.3 L Callahan % (Auto) 6.3 Eos % (Auto) 2.5 Baso % (Auto) 0.6 Lymph # (Auto) 1.19 [place]ahan # (Auto) 0.4 Eos # (Auto) 0.2 Baso # (Auto) 0.0 Abs Immat Gran (auto) 0.07 H Absolute Neuts (auto) 5.0 Absolute Nucleated RBC 0.000 Nucleated RBC % 0.0 Sodium 138 Potassium 4.4 Chloride 104 Carbon Dioxide 29 Anion Gap 5 BUN 14 Creatinine 1.38 H Estim Creat Clear Calc Not Reportable Estimated GFR 39 L Glucose 91 Calcium 9.2 Total Bilirubin 0.5 AST 27 ALT 19 Alkaline Phosphatase 86 Total Protein 6.6 Albumin 3.4 L Quality VTE Prophylaxis VTE prophylaxis: mechanical ordered and pharmacologic ordered
[2025-10-01] MEDS: guaiFENesin 12 HR 600 MG TABCR PO (09:24)
[2025-10-01] MEDS: ENOXAPARIN 40 MG/0.4 ML SYRINGE SUB-Q (09:24)
[2025-10-01] MEDS: LIDOCAINE 5% PATCH 1 PATCH TRANSDERM (09:24)
[2025-10-01] MEDS: SACCHAROMYCES BOULARDII 250 MG CAPSULE PO ×2 (09:24→12:31)
[2025-10-01] MEDS: FLUTICASONE PROPIONATE 0.05% NA SPR 16 GM BTL (*BKC) 2 SPRAY NASAL (09:25)
--- NOTE | 2025-10-01 09:46 | P.PNGS_ITS ---
Progress Note: A&P Assessment and Plan (1) Psoas abscess, left: Code(s): K68.12 - Psoas muscle abscess Status: Acute Assessment and Plan: * S/p perc drain on 09/26/25. Abscess and urine cultures growing E coli. ID recommending up to 42 days of IV ceftriaxone. Pyelogram yesterday showed no connection with the renal collecting system and the abscess. * PICC line in place. If her outpatient IV antibiotics are set up, then she is stable from a surgical standpoint to discharge home with IV antibiotics and her percutaneous drain. I will have nursing educate the patient on drain care and having her empty and record output daily. She will follow up with Dr. Douglass next week for possible drain removal. (2) UTI (urinary tract infection): Qualifiers: Hematuria presence: without hematuria Urinary tract infection type: acute cystitis Qualified Code(s): N30.00 - Acute cystitis without hematuria Code(s): N39.0 - Urinary tract infection, site not specified Status: Acute Assessment and Plan: * Urine and abscess cultures growing E. coli. Continue IV antibiotics per ID. * Pyelogram negative yesterday. (3) Hereditary hemochromatosis: Code(s): E83.110 - Hereditary hemochromatosis Status: Chronic Plan Discussed the patient's case, recommendations, and treatment with Dr. Douglass. Subjective Subjective Date/Time Seen: 10/01/25 09:46 Patient reports: no new complaints, tolerating a regular diet, flatus, bowel movement and afebrile Interval history: No acute changes overnight. Denies any pain this morning. Drain had 15 cc out in the past 24 hours. Nursing is no longer flushing the drain. Pyelogram showed no connection of the renal collecting system and the abscess. Exam Const: General: comfortable and no acute distress Orientation/consciousness: patient oriented x3 GI: Inspection: non-distended, Pannus present and obesity GI Palp: Yes Soft to palpation, No Tenderness to palpation present (GI) and No Guarding due to palpation present (GI) Auscultation: normal bowel sounds Other: Left flank perc drain with scant serosanguineous drainage Objective Data Vital Signs Vital Signs: Vital Signs - 24 hr 09/30/25 14:10 09/30/25 15:10 09/30/25 15:25 Temperature 97.4 F L 97.1 F L Pulse Rate 99 85 87 Respiratory Rate 12 14 Blood Pressure 113/68 81/39 L 102/56 L Pulse Oximetry 99 100 97 Oxygen Delivery Room Air Room Air Room Air 09/30/25 15:40 09/30/25 15:55 09/30/25 16:15 Temperature 97.7 F Pulse Rate 88 80 80 Respiratory Rate 15 18 16 Blood Pressure 104/47 L 96/83 L 130/74 Pulse Oximetry 99 98 98 Oxygen Delivery Room Air Room Air 09/30/25 16:30 09/30/25 17:00 09/30/25 18:00 Temperature 97.7 F 97.7 F 97.7 F Pulse Rate 81 92 99 Respiratory Rate 16 17 17 Blood Pressure 113/72 132/77 118/63 Pulse Oximetry 100 100 100 Oxygen Delivery 09/30/25 20:31 10/01/25 00:21 10/01/25 05:01 Temperature 97.6 F 97.6 F 97.8 F Pulse Rate 90 83 92 Respiratory Rate 16 16 16 Blood Pressure 127/72 120/70 132/75 Pulse Oximetry 98 96 97 Oxygen Delivery Intake/Output Intake/Output: Intake & Output 09/28/25 09/29/25 09/30/25 10/01/25 23:59 23:59 23:59 23:59 Intake Total 1286 1340 750 350 Output Total 833 1050 330 15 Balance 453 290 420 335 Meds/Results Medications: Active Medications Generic Name Dose Route Start Last Admin Trade Name Freq PRN Reason Stop Dose Admin Acetaminophen 650 mg 09/25/25 21:30 09/30/25 20:57 Acetaminophen 325 Mg Tablet PO 650 mg Q6H PRN Administration Pain Rated 1-3, Fever Hydrocodone Bitart/Acetaminophen 1 tab 09/25/25 22:09 09/27/25 23:52 Hydrocodone/Acetaminophen (*Crx) 5-325 Mg Tablet PO 1 tab Q6H PRN Administration Pain Rated 4-6 Benzonatate 100 mg 09/25/25 18:02 10/01/25 09:25 Benzonatate 100 Mg Capsule PO 100 mg TID PRN Administration Cough Enoxaparin Sodium 40 mg 09/29/25 09:00 10/01/25 09:24 Enoxaparin 40 Mg/0.4 Ml Syringe SUB-Q 40 mg DAILY SELVIN Administration Fluticasone Propionate 2 spray 09/26/25 09:00 10/01/25 09:25 Fluticasone Propionate 0.05% Na Spr 16 Gm Btl (*Bkc) NASAL 2 spray QAM SELVIN Administration Guaifenesin 600 mg 09/25/25 21:00 10/01/25 09:24 Guaifenesin 12 Hr 600 Mg Tabcr PO 600 mg Q12HR SELVIN Administration Hydralazine HCl 10 mg 09/25/25 20:55 Hydralazine Hcl 20 Mg/Ml Vial IV PUSH Q8H PRN Blood Pressure - High, >180/90 Ceftriaxone Sodium 2 gm/ 100 mls @ 200 mls/hr 09/30/25 18:00 09/30/25 17:40 Sodium Chloride IVPB Infused Q24H SELVIN Infusion Lidocaine 1 patch 09/30/25 09:00 10/01/25 09:24 Lidocaine 5% Patch TRANSDERM 1 patch DAILY SELVIN Administration Morphine Sulfate 2 mg 09/25/25 22:09 09/26/25 16:09 Morphine Sulfate (*Crx) 4 Mg/Ml Inj IV PUSH 2 mg Q4H PRN Administration Pain Rated 7-10 Prochlorperazine Edisylate 10 mg 09/26/25 09:28 09/27/25 17:48 Prochlorperazine Edisylate 10 Mg/2 Ml Vial IV PUSH 10 mg Q6H PRN Administration Nausea And Vomiting Saccharomyces Boulardii 250 mg 09/27/25 13:00 10/01/25 09:24 Saccharomyces Boulardii 250 Mg Capsule PO 250 mg TID SELVIN Administration Sodium Chloride 10 ml 09/30/25 14:00 10/01/25 06:08 Central Line Flush IV PUSH 10 ml Q8HR SELVIN Administration Sodium Chloride 10 ml 09/30/25 09:35 Central Line Flush IV PUSH PRN PRN with TPN bag changes Sodium Chloride 20 ml 09/30/25 09:35 Central Line Flush IV PUSH PRN PRN after blood draws Radiology Results: ITS Impressions Chest X-Ray 09/25/25 15:00 IMPRESSION: 1. No focal acute process seen. Chest CTA 09/25/25 15:25 IMPRESSION: Negative for pulmonary embolism. No acute process Catheter Placement CT 09/26/25 15:28 IMPRESSION: 1. Successful CT-guided abscess drainage. 2. 50 mL of purulent appearing opaque saenz foul-smelling fluid was sent for aerobic and anaerobic cultures. 3. The catheter will be managed by Dr. Douglass. Abdomen/Pelvis CT 09/29/25 09:22 IMPRESSION: Directed noncontrast exam demonstrating interval placement of left percutaneous psoas/perinephric abscess drain with small amount of residual fluid. No other abscess. Retrograde Pyelogram 09/30/25 16:24 IMPRESSION: No discrete filling defect within the left collecting system or ureter; no extravasation of contrast seen. ADDENDUM: 09/30/25 [id number] NOTE: No radiologist present for this procedure. See procedure/operative notes for complete evaluation. Labs Labs: Laboratory Results - last 24 hr 10/01/25 04:55 WBC 6.9 RBC 3.69 L Hgb 11.1 L Hct 35.2 L MCV 95.4 MCH 30.1 MCHC 31.5 L RDW 14.2 Plt Count 223 MPV 8.7 Immature Gran % (Auto) 1.0 H Neut % (Auto) 72.3 Lymph % (Auto) 17.3 L [place]clain % (Auto) 6.3 Eos % (Auto) 2.5 Baso % (Auto) 0.6 Lymph # (Auto) 1.19 [place] # (Auto) 0.4 Eos # (Auto) 0.2 Baso # (Auto) 0.0 Abs Immat Gran (auto) 0.07 H Absolute Neuts (auto) 5.0 Absolute Nucleated RBC 0.000 Nucleated RBC % 0.0 Sodium 138 Potassium 4.4 Chloride 104 Carbon Dioxide 29 Anion Gap 5 BUN 14 Creatinine 1.38 H Estim Creat Clear Calc Not Reportable Estimated GFR 39 L Glucose 91 Calcium 9.2 Total Bilirubin 0.5 AST 27 ALT 19 Alkaline Phosphatase 86 Total Protein 6.6 Albumin 3.4 L
--- NOTE | 2025-10-01 11:33 | P.PNINF_ITS ---
Progress Note: A&P Assessment and Plan (1) Psoas abscess, left: Code(s): K68.12 - Psoas muscle abscess Status: Acute Assessment and Plan: See below Plan ASSESSMENT: 1. E.coli left iliopsoas abscess s/p percutaneous drainage (09/26/25) a. 09/30/25 Cystoscopy without evidence of fistula 2. E.coli bacteriuria; possible renal source of iliopsoas abscess 3. Acute leukocytosis- resolved 4. Acute kidney injury 5. Hereditary Hemochromatosis PLAN: -Continue Ceftriaxone 2g IV Q24hrs day 2 for up to 42 day course -Drain management as per surgical service -Follow CBC and renal function -PICC in place for outpatient IV antimicrobials -Orders for outpatient Ceftriaxone sent to resident care manager on 09/30/25 to arrange once patient is ready for discharge -Discharge planning per primary service -Discussed with patient and at bedside. All questions answered Patient can follow-up with me via telephone visit in 2-3 weeks. Call [phone] to schedule follow-up Subjective Date/time seen: 10/01/25 11:33 Interval history: Patient afebrile. Cystoscopy did not show evidence of fistulous connection to left psoas abscess. Patient feels well and looking forward to discharge home Review of Systems Review of Systems: All systems reviewed & are unremarkable except as noted in HPI and below Exam Narrative: Gen: NAD Cor: no tachycardia Pulm: normal chest expansion, no tachypnea Abd: non-distended Back: Percutaneous drain with serosanguinous output Lines: RUE PICC (09/30/25) intact Objective Data Vital Signs Vital Signs: Vital Signs - 24 hr 09/30/25 14:10 09/30/25 15:10 09/30/25 15:25 Temperature 97.4 F L 97.1 F L Pulse Rate 99 85 87 Respiratory Rate 12 14 Blood Pressure 113/68 81/39 L 102/56 L Pulse Oximetry 99 100 97 Oxygen Delivery Room Air Room Air Room Air 09/30/25 15:40 09/30/25 15:55 09/30/25 16:15 Temperature 97.7 F Pulse Rate 88 80 80 Respiratory Rate 15 18 16 Blood Pressure 104/47 L 96/83 L 130/74 Pulse Oximetry 99 98 98 Oxygen Delivery Room Air Room Air 09/30/25 16:30 09/30/25 17:00 09/30/25 18:00 Temperature 97.7 F 97.7 F 97.7 F Pulse Rate 81 92 99 Respiratory Rate 16 17 17 Blood Pressure 113/72 132/77 118/63 Pulse Oximetry 100 100 100 Oxygen Delivery 09/30/25 20:31 10/01/25 00:21 10/01/25 05:01 Temperature 97.6 F 97.6 F 97.8 F Pulse Rate 90 83 92 Respiratory Rate 16 16 16 Blood Pressure 127/72 120/70 132/75 Pulse Oximetry 98 96 97 Oxygen Delivery 10/01/25 09:15 Temperature Pulse Rate Respiratory Rate Blood Pressure Pulse Oximetry Oxygen Delivery Room Air Intake/Output Intake/Output: Intake & Output 09/28/25 09/29/25 09/30/25 10/01/25 23:59 23:59 23:59 23:59 Intake Total 1286 1340 750 470 Output Total 833 1050 330 15 Balance 453 290 420 455 Meds/Results Medications: Active Medications Generic Name Dose Route Start Last Admin Trade Name Freq PRN Reason Stop Dose Admin Acetaminophen 650 mg 09/25/25 21:30 09/30/25 20:57 Acetaminophen 325 Mg Tablet PO 650 mg Q6H PRN Administration Pain Rated 1-3, Fever Hydrocodone Bitart/Acetaminophen 1 tab 09/25/25 22:09 09/27/25 23:52 Hydrocodone/Acetaminophen (*Crx) 5-325 Mg Tablet PO 1 tab Q6H PRN Administration Pain Rated 4-6 Benzonatate 100 mg 09/25/25 18:02 10/01/25 09:25 Benzonatate 100 Mg Capsule PO 100 mg TID PRN Administration Cough Enoxaparin Sodium 40 mg 09/29/25 09:00 10/01/25 09:24 Enoxaparin 40 Mg/0.4 Ml Syringe SUB-Q 40 mg DAILY SELVIN Administration Fluticasone Propionate 2 spray 09/26/25 09:00 10/01/25 09:25 Fluticasone Propionate 0.05% Na Spr 16 Gm Btl (*Bkc) NASAL 2 spray QAM SELVIN Administration Guaifenesin 600 mg 09/25/25 21:00 10/01/25 09:24 Guaifenesin 12 Hr 600 Mg Tabcr PO 600 mg Q12HR SELVIN Administration Hydralazine HCl 10 mg 09/25/25 20:55 Hydralazine Hcl 20 Mg/Ml Vial IV PUSH Q8H PRN Blood Pressure - High, >180/90 Ceftriaxone Sodium 2 gm/ 100 mls @ 200 mls/hr 09/30/25 18:00 09/30/25 17:40 Sodium Chloride IVPB Infused Q24H SELVIN Infusion Lidocaine 1 patch 09/30/25 09:00 10/01/25 09:24 Lidocaine 5% Patch TRANSDERM 1 patch DAILY SELVIN Administration Morphine Sulfate 2 mg 09/25/25 22:09 09/26/25 16:09 Morphine Sulfate (*Crx) 4 Mg/Ml Inj IV PUSH 2 mg Q4H PRN Administration Pain Rated 7-10 Prochlorperazine Edisylate 10 mg 09/26/25 09:28 09/27/25 17:48 Prochlorperazine Edisylate 10 Mg/2 Ml Vial IV PUSH 10 mg Q6H PRN Administration Nausea And Vomiting Saccharomyces Boulardii 250 mg 09/27/25 13:00 10/01/25 09:24 Saccharomyces Boulardii 250 Mg Capsule PO 250 mg TID SELVIN Administration Sodium Chloride 10 ml 09/30/25 14:00 10/01/25 06:08 Central Line Flush IV PUSH 10 ml Q8HR SELVIN Administration Sodium Chloride 10 ml 09/30/25 09:35 Central Line Flush IV PUSH PRN PRN with TPN bag changes Sodium Chloride 20 ml 09/30/25 09:35 Central Line Flush IV PUSH PRN PRN after blood draws Radiology Results: ITS Impressions Chest X-Ray 09/25/25 15:00 IMPRESSION: 1. No focal acute process seen. Chest CTA 09/25/25 15:25 IMPRESSION: Negative for pulmonary embolism. No acute process Catheter Placement CT 09/26/25 15:28 IMPRESSION: 1. Successful CT-guided abscess drainage. 2. 50 mL of purulent appearing opaque saenz foul-smelling fluid was sent for aerobic and anaerobic cultures. 3. The catheter will be managed by Dr. Douglass. Abdomen/Pelvis CT 09/29/25 09:22 IMPRESSION: Directed noncontrast exam demonstrating interval placement of left percutaneous psoas/perinephric abscess drain with small amount of residual fluid. No other abscess. Retrograde Pyelogram 09/30/25 16:24 IMPRESSION: No discrete filling defect within the left collecting system or ureter; no extravasation of contrast seen. ADDENDUM: 09/30/25 1634 NOTE: No radiologist present for this procedure. See procedure/operative notes for complete evaluation. Labs Labs: Laboratory Results - last 24 hr 10/01/25 04:55 WBC 6.9 RBC 3.69 L Hgb 11.1 L Hct 35.2 L MCV 95.4 MCH 30.1 MCHC 31.5 L RDW 14.2 Plt Count 223 MPV 8.7 Immature Gran % (Auto) 1.0 H Neut % (Auto) 72.3 Lymph % (Auto) 17.3 L [place] % (Auto) 6.3 Eos % (Auto) 2.5 Baso % (Auto) 0.6 Lymph # (Auto) 1.19 [place] # (Auto) 0.4 Eos # (Auto) 0.2 Baso # (Auto) 0.0 Abs Immat Gran (auto) 0.07 H Absolute Neuts (auto) 5.0 Absolute Nucleated RBC 0.000 Nucleated RBC % 0.0 Sodium 138 Potassium 4.4 Chloride 104 Carbon Dioxide 29 Anion Gap 5 BUN 14 Creatinine 1.38 H Estim Creat Clear Calc Not Reportable Estimated GFR 39 L Glucose 91 Calcium 9.2 Total Bilirubin 0.5 AST 27 ALT 19 Alkaline Phosphatase 86 Total Protein 6.6 Albumin 3.4 L
--- NOTE | 2025-10-01 13:24 | P.DS_ITS ---
DS: Admitting Diagnosis Discharge Date 10/01 Admitting Diagnosis sob DS: Discharge Diagnosis Discharge Diagnosis (1) SIRS (systemic inflammatory response syndrome): Code(s): R65.10 - Systemic inflammatory response syndrome (SIRS) of non-infectious origin without acute organ dysfunction Status: Acute Assessment and Plan: Patient met SIRS criteria due to heart rate (107-111) and WBC (18.3). - lactic acid: 1.0 - s/p 2L bolus in the ED -> 75 ml/hr x1 L - likely source: psoas abscess and uti - blood cultures drawn on 09/25: No growth 48 hours - UA concerning for infection. Urine culture:ecoli pansensitive - Viral PCR negative. CXR showed no acute process. Chest CTA negative for PE and acute process. - CT of the abdomen/pelvis (09/25): complex cystic mass within the left iliopsoas muscle with adjacent induration measuring 9.4 x 12.1 x 7.3 cm suggestive of an abscess. - Abscess culture: ecoli pansensitive Resolved. WBC WNL. Vitals stable. See plan below. (2) Abscess: Code(s): L02.91 - Cutaneous abscess, unspecified Status: Acute Assessment and Plan: Meeting sepsis criteria as above. CT of the abdomen/pelvis (09/25): complex cystic mass within the left iliopsoas muscle with adjacent induration measuring 9.4 x 12.1 x 7.3 cm suggestive of an abscess. Antibiotics: Zosyn and vanc on 09/26, discontinued vancomycin on 09/29 Surgery consulted, appreciate recommendations s/p percutaneous drain with IR on 09/26 with foul smelling fluid source of the abscess is still unknown. Gram stain and cultures from drainage procedure: ecoli pansensitive Urology consulted, appreciate recommendations Plan cystoscopy with retrograde pyelography Infectious disease consulted, appreciate recommendations De-escalate Zosyn to Ceftriaxone 2g IV Q24hrs for up to 42 day course, transitioned on 09/30. PICC line placed for long term care administrator IV antibiotics. Place PICC for outpatient IV antimicrobials Orders for outpatient Ceftriaxone sent to care professional to arrange once patient is ready for discharge WBC WNL. Drain in place with min serosanguinous output. Since both urine and abscess culture are growing ecoli urology plans to obtain a cystoscopy to assess for communication between sites. Continue to monitor. (3) UTI (urinary tract infection): Qualifiers: Hematuria presence: without hematuria Urinary tract infection type: acute cystitis Qualified Code(s): N30.00 - Acute cystitis without hematuria Code(s): N39.0 - Urinary tract infection, site not specified Status: Acute Assessment and Plan: - UA concerning for infection - UC obtained on 09/25: ecoli pansensitive - previous micro reviewed 04/2024: ecoli pansensitive - started on zosyn and vanc for cocurrent abscess on 09/26, vancomycin discontinued on 09/29. Zosyn transitioned to rocephin on 09/30. (4) Acute kidney injury: Code(s): N17.9 - Acute kidney failure, unspecified Status: Acute Assessment and Plan: BUN/Cr WNL on admission, now uptrending to 12/1.46 on am labs Possibly antibiotic induced as patient was on vanc and zosyn Patient appears euvolemic Urine output WNL Avoid nephrotoxic medications Renally dose medication s Monitor CMP for renal function BUN/Cr downtrending. Continue to monitor. (5) Shortness of breath: Code(s): R06.02 - Shortness of breath Status: Acute Assessment and Plan: Patient initially presented here for shortness of breath with productive cough yielding clear mucus. No history of smoking. She reports symptoms have been ongoing for months. No current concern for pneumonia. Viral PCR negative on 09/25. CXR and CTA showed no acute process. O2 stats reviewed and remain stable Resolved. Denies SOB and cough. (6) Hypertension: Qualifiers: Hypertension type: primary hypertension Qualified Code(s): I10 - Essential (primary) hypertension Code(s): I10 - Essential (primary) hypertension Status: Acute Assessment and Plan: - chronic - Hold spironolactone, resume as appropriate following drain placement - Hydralazine p.r.n. in interim. - blood pressures reviewed and remains stable, continue to monitor DS: Summary Hospital Course Hospital Course: The patient presents here from work via EMS on 09/25 for further evaluation of shortness of breath. She reports this has been ongoing for the past 3 months. She reports the shortness of breath has been exertional and she first noticed it when she would walk across the parking lot at work. Has worsened in the last 1-2 weeks. Now also having poor appetite/poor PO intake, productive cough yielding white/clear, chills, nausea, and vomiting. Denies congestion, rhinorrhea, or fever. Recently has also developed left lower flank pain. Patient did not initially think much of her symptoms and attributed the pain as secondary to her nausea and vomiting. Noted to be febrile today, maxT 102.5F. Denies any dysuria, urinary frequency, no changes in appearance, or odor. Initial VS at presentation: 97.8? F, HR 107, R 18, 117/63, and 100% on RA. ED workup showed: WBC 18.3, no anemia, INR 1.3, sodium 132, creatinine 0.72 and GFR >60, CRP 30.3, procalcitonin 0.2, lactic 1.0, and UA concerning for UTI. Viral PCR negative. CXR showed no focal acute process. Chest CTA negative for PE or acute process. CT of the abdomen/pelvis showed a complex cystic mass within the left iliopsoas muscle with adjacent induration measuring 9.4 x 12.1 x 7.3 cm suggestive of an abscess. # Psoas * S/p perc drain on 09/26/25. Abscess and urine cultures growing E coli. ID recommending up to 42 days of IV ceftriaxone. Pyelogram yesterday showed no connection with the renal collecting system and the abscess. * PICC line in place. She is stable from a surgical standpoint to discharge home with IV antibiotics and her percutaneous drain. She completed education on drain care and having her empty and record output daily. She will follow up with Dr. Douglass next week for possible drain removal. #SIRS (systemic inflammatory response syndrome): Patient met SIRS criteria due to heart rate (107-111) and WBC (18.3). - lactic acid: 1.0 - s/p 2L bolus in the ED -> 75 ml/hr x1 L - likely source: psoas abscess and UTI - blood cultures drawn on 09/25: No growth 48 hours - UA concerning for infection. Urine culture: ecoli pansensitive - Viral PCR negative. CXR showed no acute process. Chest CTA negative for PE and acute process. - CT of the abdomen/pelvis (09/25): complex cystic mass within the left iliopsoas muscle with adjacent induration measuring 9.4 x 12.1 x 7.3 cm suggestive of an abscess. - Abscess culture: ecoli pansensitive Resolved. WBC WNL. Vitals stable. # Acute kidney injury: BUN/Cr WNL on admission, now uptrending to 12/1.46 on am labs Possibly antibiotic induced as patient was on vanc and zosyn Patient appears euvolemic Urine output WNL Avoid nephrotoxic medications Renally dose medication Monitor CMP for renal function BUN/Cr downtrending. Improved # Shortness of breath: Patient initially presented here for shortness of breath with productive cough yielding clear mucus. No history of smoking. She reports symptoms have been ongoing for months. No current concern for pn eumonia. Viral PCR negative on 09/25. CXR and CTA showed no acute process. O2 stats reviewed and remain stable Resolved. #Hypertension - chronic - Hold spironolactone- will hold for now as kidney function still improving- resume as appropriate following drain placement - Hydralazine p.r.n. in interim. - blood pressures reviewed and remains stable, continue to monitor Status at Discharge Functional status at discharge: independent ambulation Time Spent with Patient Time attestation: Total time spent providing and/or coordinating discharge services: Time spent: Greater than 30 minutes Exam Narrative: General: female in no acute respiratory distress who is nontoxic appearing, sitting up in bed. HEENT: Extraocular movement intact. Sclera clear and anicteric. No facial asymmetry. Chest: Lungs are clear to auscultation bilaterally. No wheezes or crackles. CV: Heart was regular rate and rhythm. Abd: Abdomen was soft. Nontender. Nondistended. Positive bowel sounds. Ext: No clubbing, cyanosis, or edema. DP pulses bilaterally. Picc line to right upper extremity. Neuro: Patient is alert. Speech is clear. Skin: Drain placed to left flank with no erythema or warmth, serosanguineous drainage Const: General: comfortable and no acute distress Other: , female, nontoxic appearance, obese body habitus HENMT: Face/Nose/Sinus: Normal nares present Mouth: Yes moist mucous membranes Eyes: General: appearance normal, both eyes and all related structures Sclera: sclerae normal Pupils: Equal, round and reactive pupils present EOM: EOMs intact bilaterally Resp: Effort & Inspection: normal respiratory effort Auscultation: clear to auscultation bilaterally Cardio: Rate: regular rate Rhythm: regular rhythm Other: S1-S2 present without murmur, rub, ectopy GI: Other: Abdomen soft, nondistended, nontender. Normoactive bowel sounds in all quadrants. : Other: Mild left flank tenderness Skin: General skin exam: normal color and no rashes or lesions noted Wounds: no wounds Neuro: Cranial nerves: Yes Equal, round and reactive pupils present Speech: normal speech Motor exam (neuro): 5/5 motor strength present throughout Sensory Exam: normal sensation Other: A&O x4 Extrem: General: normal to inspection Psych: Mental Status: mental status grossly normal Affect: normal affect Other: Good insight and judgment, pleasant DS: Data Data Completed and Pending Labs on day of discharge: Labs from last 24 hours 10/01/25 04:55 WBC 6.9 RBC 3.69 L Hgb 11.1 L Hct 35.2 L MCV 95.4 MCH 30.1 MCHC 31.5 L RDW 14.2 Plt Count 223 MPV 8.7 Immature Gran % (Auto) 1.0 H Neut % (Auto) 72.3 Lymph % (Auto) 17.3 L [place] % (Auto) 6.3 Eos % (Auto) 2.5 Baso % (Auto) 0.6 Lymph # (Auto) 1.19 [place] # (Auto) 0.4 Eos # (Auto) 0.2 Baso # (Auto) 0.0 Abs Immat Gran (auto) 0.07 H Absolute Neuts (auto) 5.0 Absolute Nucleated RBC 0.000 Nucleated RBC % 0.0 Sodium 138 Potassium 4.4 Chloride 104 Carbon Dioxide 29 Anion Gap 5 BUN 14 Creatinine 1.38 H Estim Creat Clear Calc Not Reportable Estimated GFR 39 L Glucose 91 Calcium 9.2 Total Bilirubin 0.5 AST 27 ALT 19 Alkaline Phosphatase 86 Total Protein 6.6 Albumin 3.4 L Preliminary micro results at discharge 09/25/25 17:09 Blood Culture - Preliminary Blood 09/25/25 17:17 Blood Culture - Preliminary Blood Discharge Plan Discharge Attending physician on discharge: Zurdo Wan Consulting providers: Allyson Ledesma; Derian Angel; Burt Douglass; Fabricio Schaefer Discharging Clinician: Tonia Mai Patient Disposition: Home Activity: other - see discharge instructions Diet: heart healthy Discharge Instructions: Patient to discharge with [facility] outpatient [facility]fusion [facility] ) for daily home infusion of Ceftriaxone 2 grams through 11/08/25. Pt. to go to [facility] once weekly arrange date with the clinic for your weekly PICC line dressing changes and lab work (CBC with diff. and CMP). The Infusion Center is located at [address] [place] [address]. . Patient Instructions: Antibiotic Form, Aspirin (By mouth), Safe Use of Anticoagulants (GEN), Blood Thinners (GEN) Patient Language: Tunisian Stand Alone Forms: General Discharge Information Follow-up/Referrals: Rubia,Jes Keys, ANP [Primary Care Provider, Unknown] - 2 Weeks Discharge Medications: New hydrocodone-acetaminophen 5-325 mg Tablet 1 tablet PO Q6H PRN (Reason: Pain Rated 4-6) Qty: 12 0RF Ceftriaxone 2,000 mg IV .q24 Qty: 1 0RF Continued oxybutynin chloride 5 mg tablet extended release 24hr 5 mg PO DAILY ergocalciferol (vitamin D2) 1,250 mcg (50,000 unit) capsule 1,250 mcg PO WEEKLY aspirin [Adult Low Dose Aspirin] 81 mg Tablet 81 mg PO DAILY ndzqbhcd-fahs-uyqvy-oreg-capry 100 mg-150 mg- 50 mg-150 mg Capsule 1 cap PO DAILY Held spironolactone 50 mg tablet 50 mg PO DAILY Hold Instructions: Resume on 10/15/25. hold until kidney function is rechecked and PCP directs you to restart it Date of admission: 09/26/25 13:08 Primary Care Provider: VeronaJes Admitting Provider: Rocky Hermosillo Attending physician on admission: Rocky Hermosillo Condition: Stable Quality VTE Prophylaxis VTE prophylaxis: mechanical ordered and pharmacologic ordered Hospitalist MIPS Heart Failure (Exclusion) Patient has history of Heart Transplant or Left Ventricular Assistive Device?: No IF YES, STOP HERE Heart Failure (Qualifier) Patient has current or prior documentation of LVEF less than or equal to 40%, or mod/servere depressed LVSF?: No IF NO, STOP HERE
[2025-10-01 14:00] VITALS: BP 108/69; PULSE 92; RESP 16; TEMP 36.2; O2SAT 99
== END 2025-10-01 15:20 | disposition home or self-care (01) | DRG 988 ==
LOC: ANHED 15:24 → ANH2MED 18:14
PROVIDERS: Physician Assistant; Radiology Diagnostic Radiology; Student in an Organized Health Care Education/Training Program; Surgery; Urology; Admitting Provider Student in an Organized Health Care Education/Training Program; Emergency Provider Emergency Medicine; PCP Nurse Practitioner; Visit Provider Nurse Practitioner
PROC: 0K9P0ZX Drainage of Left Hip Muscle, Open Approach, Diagnostic (ICD-10-PCS; CPT 75989; principal; 2025-09-26 15:00)
PROC: BT1FZZZ Fluoroscopy of Left Kidney, Ureter and Bladder (ICD-10-PCS; CPT 52352; principal; 2025-09-30 15:30)
DX: K68.12 Psoas muscle abscess (principal); N30.00 Acute cystitis without hematuria; R65.10 Systemic inflammatory response syndrome (SIRS) of non-infectious origin without acute organ dysfunction; B96.20 Unspecified Escherichia coli [E. coli] as the cause of diseases classified elsewhere; E83.119 Hemochromatosis, unspecified; I10 Essential (primary) hypertension; K21.9 Gastro-esophageal reflux disease without esophagitis; Z79.82 Long term (current) use of aspirin; Z20.822 Contact with and (suspected) exposure to COVID-19; Z90.49 Acquired absence of other specified parts of digestive tract
CPT/HCPCS: 36415; 36569; 49406; 71046; 71275; 74176; 74420; 80053; 80202; 81001; 82565; 82570; 82728; 83540; 83550; 83605; 83690; 83880; 84145; 85025; 85027; 85610; 85730; 86140; 87040; 87070; 87075; 87086; 87186; 87205; 87637; 93005; 96365; 96366; 96367; 96374; 96375; 99285; A9270; C1729; C1751; C1758; C1769; G0378; J0696; J0780; J1650; J2003; J2250; J2270; J2405; J2543; J2704; J3010; J3373; J7120; Q9966; Q9967